=== PATIENT | male | born 1970 | race Caucasian/White ===

== ENCOUNTER 2022-10-24 13:16 | Emergency (ER) | payer OTHER, SELFPAY ==
--- NOTE | ~2022-10-24 | XR_ITS ---
EXAMINATION: XR knee RT min 4V DATE: 10/24/2022 14:14 INDICATION: Knee pain and popping while walking TECHNIQUE: Anteroposterior, 2 oblique and crosstable lateral views of the right knee were obtained COMPARISON: None. FINDINGS: Alignment is normal. No fracture. Joint spaces appear normal on nonweightbearing imaging. There are tiny marginal osteophytes in all 3 compartments consistent with at least minimal osteoarthritis. No j oint effusion. Soft tissues are unremarkable. IMPRESSION: 1. At least minimal osteoarthritis of the right knee with no joint effusion or acute osseous abnormal ity. Reviewed, dictated and finalized at location A. IMPRESSION: 1. At least minimal osteoarthritis of the right knee with no joint effusion or acute osseous abnormality.
--- NOTE | 2022-10-24 13:28 | ED.LOWEXIN ---
HPI - Extremity Injury (Lower) General Chief Complaint: Extremity Injury, Lower Stated Complaint: Right knee pain Time Seen by Provider: 10/24/22 13:59 Source: patient and RN notes reviewed Mode of arrival: ambulatory Limitations: no limitations History of Present Illness HPI Narrative: 52-year-old male presents with concern for right knee pain. He reports pain started 1 week ago without injury or trauma. He reports he feels like the knee is going to give out sometimes, reports a popping sensation when he gets out of the car. He denies taking any medications for his symptoms. He denies any redness or warmth. Denies open skin. MD complaint: other (knee pain) Related Data Allergies Allergy/AdvReac Type Severity Reaction Status Date / Time No Known Allergies Allergy Verified 10/24/22 14:05 Review of Systems Review of Systems: CONSTITUTIONAL: Denies malaise, chills, sweats, or fever. SKIN: Denies rash or itching, open skin, laceration, abrasion, redness, warmth MUSCULOSKELETAL: Reports right knee pain NEUROLOGIC: Denies numbness, weakness All systems reviewed & are unremarkable except as noted in HPI and below PMFSH Comments At time of signature, agree with nursing past medical, surgical, social and family history. There is no relevant family history pertinent to the presenting complaint Exam Narrative: GENERAL: Well-appearing, well-nourished, and in no acute distress. HEAD: Normocephalic, atraumatic. EYES: PERRLA, conjunctivae clear NECK: Supple. CHEST: Speaks in full sentences. No respiratory distress. HEART: Regular rate and rhythm. Normal and equal peripheral pulses. EXTREMITIES: Right knee has grossly normal strength and sensation, grossly normal range of motion. Moderate knee edema without erythema, warmth, ecchymosis. Normal sensation with sensitivity to light touch and pain. Posterior and anterior knee tenderness. No open wounds, no skin tenting, no devitalized tissue or atrophy, no trophic changes, no obvious deformity, alignment normal, nearby joints and structures intact. Distal pulses palpable and equal bilaterally, skin warm, dry, pink. Capillary refill less than 3 seconds. SKIN: Warm, dry, no rash. NEURO: Alert and oriented x3. PSYCH: Normal mood and affect Course Course Emergency Course: Patient is aware of diagnosis, understands and agrees to treatment plan. Anticipatory guidance given. Patient agrees to follow-up as directed and is aware of reasons to seek care at the emergency department. Portions of this record may have been created with voice recognition software Level of Care: Express Care Visit Vital Signs Vital signs: Reviewed. MDM - Extremity Injury (Lower) MDM Narrative Medical decision making narrative: Patients injury and pain is consistent with musculoskeletal etiology. No signs of neurological or vascular compromise on exam. Compartments and tissues are soft without signs of compartment syndrome. Pain is felt appropriate for further evaluation on an outpatient basis. Patient denies any significant medical history or contraindication to taking NSAIDs Imaging Data My impression: Images reviewed, interpreted by radiologist, agree, see report. Radiologist's impression: EXAMINATION: XR knee RT min 4V DATE: 10/24/2022 14:14 INDICATION: Knee pain and popping while walking TECHNIQUE: Anteroposterior, 2 oblique and crosstable lateral views of the right knee were obtained COMPARISON: None. FINDINGS: Alignment is normal.? No fracture. Joint spaces appear normal on nonweightbearing imaging. There are tiny marginal osteophytes in all 3 compartments consistent with at least minimal osteoarthritis. No joint effusion. Soft tissues are unremarkable. IMPRESSION: 1. At least minimal osteoarthritis of the right knee with no joint effusion or acute osseous abnormality. Critical Care Time Critical Care Time Critical Care Time: No Discharge Plan Discharge Clinical Impressio
[2022-10-24 13:33] VITALS: BP 155/82; PULSE 82; RESP 16; TEMP 37; O2SAT 98
== END 2022-10-24 14:57 | disposition home or self-care (01) ==
PROVIDERS: Emergency Provider Nurse Practitioner
DX: M25.561 Pain in right knee (principal); M25.461 Effusion, right knee
CPT/HCPCS: 73564; 99203; G0463

== ENCOUNTER 2022-12-01 11:11 | Inpatient (IN) | payer OTHER, SELFPAY ==
[2022-12-01] VITALS (26 sets, daily range): BP systolic 158–186; BP diastolic 85–98; PULSE 63–117; RESP 12–26; TEMP 36.5–36.6; O2SAT 97–100; BMI 18.8
--- NOTE | ~2022-12-01 | US_ITS ---
EXAMINATION: US abdomen complete DATE: 12/07/2022 15:12 INDICATION: Liver disease TECHNIQUE: Multiple grayscale and Doppler ultrasound images of the abdomen were obtained. COMPARISON: CT, 12/01/2022 FINDINGS: Bowel gas obscures visualization of the pancreas. The visualized portions of the pancreas a re unremarkable. The small hypoattenuating lesions of the liver described on the comparison CT are no t well demonstrated. No surface nodularity. Normal hepatopetal flow in the main portal vein. The gall bladder is normal with no abnormal wall thickening, pericholecystic fluid or stones. The normal commo n bile duct measures 5 mm. There was no sonographic [place] sign. The visualized portions of the aorta and inferior vena cava are normal. The spleen is normal in appearance and measures 8.1 cm. The right kidney measures 9.6 x 5.3 cm. The l eft kidney measures 10.0 x 6.3 cm. The kidneys demonstrate normal parenchymal echogenicity. There is no hydronephrosis. IMPRESSION: 1. Hypoattenuating lesions of the liver described on comparison CT not well demonstrated. Consider fu rther evaluation by MRI without and with contrast. Reviewed, dictated and finalized at location [] IMPRESSION: 1. Hypoattenuating lesions of the liver described on comparison CT not well dem onstrated. Consider further evaluation by MRI without and with contrast.
--- NOTE | ~2022-12-01 | MR_ITS ---
EXAMINATION: MR abdomen wo/w con INDICATION: Hepatic lesions TECHNIQUE: Coronal SSFSE ARC, WATER:coronal LAVA-FLEX, Coronal 2D FIESTA FatSat, Axial SSFSE BH ARC, Axial 3D DualEcho BH, Axial SSFSE-IR, Axial DWI b=500, Axial 2D FIESTA FatSat, pre and dynamic postco ntrast Axial LAVA ARC, postcontrast Coronal In and Opposed phase LAVA FLEX COMPARISON: CT, 12/01/2022 CONTRAST: Multihance, 12 cc. Of note, patient experienced and itching sensation in his oral cavity an d demonstrated hives on his back after the examination was completed. Patient was evaluated by Dr. Fr corcoran who maybe I am you aware of the contrast reaction and advised the administration of Benadryl i f symptoms do not improve. FINDINGS: There are innumerable T1 hypointense, T2 hyperintense, nonenhancing lesions scattered throu ghout all lobes of the liver. The largest measure up to 9 mm. No suspicious liver mass is identified. The spleen, pancreas, gallbladder, and adrenal glands are unremarkable cysts of the kidneys measure up to 2.5 cm on the left. There are no pathologically enlarged abdominal lymph nodes. No dilated loop s of bowel are evident. No abnormal enhancement is present after contrast administration.. IMPRESSION: 1. Innumerable lesions throughout all lobes of the liver with benign MR features, likely cysts or jameel iary hamartomas. 2. Contrast reaction. Reviewed, dictated and finalized at location L. IMPRESSION: 1. Innumerable lesions throughout all lobes of the liver with benign MR feature s, likely cysts or biliary hamartomas. 2. Contrast reaction.
--- NOTE | ~2022-12-01 | CT_ITS ---
EXAMINATION: CT abdomen pelvis w con DATE: 12/01/2022 12:49 INDICATION: Abdominal pain TECHNIQUE: Computed tomography (CT) of the abdomen and pelvis was performed with 100 cc Omnipaque 350 intravenous contrast. The dose-length product was 208.06 mGy-cm. Automated exposure control and iterative reconstruction technique were employed. COMPARISON: None. FINDINGS: Lung bases are unremarkable. Heart size normal. No significant pleural or pericardial effus ion. There are innumerable small low density lesions of the liver, most likely benign cysts, although too small to adequately characterize. Fatty infiltration of the liver. Spleen is atrophic. The pancr eas, adrenal glands are unremarkable. There are bilateral renal cysts. No hydronephrosis. Gallbladder is present. Nonobstructive bowel pattern. Normal appendix. There is thickening of the sigmoid colon. No small bowel dilation. No significant vascular abnormality. Small hiatal hernia. No lymphadenopath y. IMPRESSION: 1. Thickening of the sigmoid colon which may represent normal variant, although other considerations include colitis and malignancy. Recommend correlation with colonoscopy. 2: Hepatic steatosis. Innumerable hypodense lesions of the liver, most likely benign, although too s mall to characterize. Reviewed, dictated and finalized at location L. IMPRESSION: 1. Thickening of the sigmoid colon which may represent normal variant, although other considerations include colitis and malignancy. Recommend correlation wit h colonoscopy. 2: Hepatic steatosis. Innumerable hypodense lesions of the liver, most likely benign, although too small to characterize.
--- NOTE | 2022-12-01 12:11 | ED.ALCOHOL ---
HPI - Alcohol General Chief Complaint: Alcohol Stated Complaint: ETOH, bloody emesis Time Seen by Provider: 12/01/22 12:11 Source: patient and family Mode of arrival: ambulatory Limitations: no limitations History of Present Illness HPI narrative: 52 years old white male presented to the ED with dry heaves and the frequent vomiting over the last few days. Last alcohol intake was 10 AM this morning. Patient drinks a pint of fireball daily. Last time was seen by a physician years ago. Patient does not take medicine at home, he smokes cigarettes and uses marijuana he denies other drug abuse. Lately noticed blood in the vomitus with abdominal pain mainly on the right side. He denies any fever or chills or diarrhea or constipation. His reports that patient is not eating for the last few days and unable to keep anything down. Related Data Allergies Allergy/AdvReac Type Severity Reaction Status Date / Time No Known Allergies Allergy Verified 12/01/22 10:23 Review of Systems Review of Systems: All systems reviewed & are unremarkable except as noted in HPI and below PMFSH Family History Family History Mother Diabetes mellitus Social History Social History Smoking packs per day: 1 Smoking cigarettes per day: 20.0 Smoking status: Current every day smoker Tobacco type: cigarettes Alcohol intake: current Substance use: unknown Lack of Transportation: No Lack of Food: Never True Current Housing: I Have Housing Concerned About Future Housing: No Difficulty Paying Gas/Electric Bills: No Difficulty Paying for Meds: No Currently Unemployed: YES Education: High School Diploma/GED Difficulty w/ Childcare or Family Care: No Exam Narrative: General appearance: Well-developed, well-nourished Skin: Normal color Head: Normocephalic, nontraumatic Eyes: Clear conjunctiva ENT: Oropharynx normal, ears normal, nose normal Neck: Supple, nontender Chest and respiratory: Airway patent, no respiratory distress, no accessory muscle use Heart: Regular rate/rhythm Abdomen: Soft, diffuse tenderness, no guarding or rebound no organomegaly, quiet bowel sounds Vascular: Normal peripheral pulses, normal capillary refill. 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 Reevaluation(s) Reevaluation #1: Slightly better after IV fluid Date: 12/01/22 Time: 13:24 Consultations Consultation #1: Dr. Smith Date: 12/01/22 Time: 15:02 Vital Signs Vital signs: Vital Signs Pulse Rate 78 12/01/22 11:33 Respiratory Rate 17 12/01/22 11:33 Pulse Oximetry 98 12/01/22 11:33 Temperature 36.6 C 12/01/22 11:42 Pulse Rate 91 12/01/22 13:16 Respiratory Rate 18 12/01/22 13:16 Blood Pressure 164/90 H 12/01/22 13:16 Pulse Oximetry 97 12/01/22 13:16 Oxygen Delivery Room Air 12/01/22 11:42 MDM - Alcohol Lab Data 12/01/22 12:10 12/01/22 12:10 Labs: Lab Results 12/01/22 12/01/22 12/01/22 Range/Units 12:10 13:57 14:55 WBC 9.1 (4.5-10.0) K/mm3 RBC 5.14 (4.6-6.20) M/mm3 Hgb 19.2 H (14.0-18.0) g/dL Hct 52.9 H (42.0-52.0) % MCV 102.9 H (80-100) fl MCH 37.4 H (26-34) pg MCHC 36.3 H (32-36) g/dl RDW 14.6 H (11.5-14.5) % Plt Count 154 (150-375) k/mm3 MPV 9.8 (7.4-10.4) fl Immature Gran % (Auto) 0.4 (0-0.5) % Neut % (Auto) 68.2 (45.5-73.1) % Lymph
[2022-12-01 12:16] LABS: Basophils Absolute Auto 0.1 K/mm3 (0.0-0.1); Basophils Percent Auto 0.6 % (0.2-1.2); Eosinophils Percent Auto 0.3 % (0-4.4); Hematocrit 52.9 % (42.0-52.0); Hemoglobin 19.2 g/dL (14.0-18.0); Immature Granulocyte Absolute 0.04 K/mm3 (0.00-0.031); Immature Granulocyte Percent A 0.4 % (0-0.5); Lymphocytes Absolute Auto 1.77 K/mm3 (0.9-3.2); Lymphocytes Percent Auto 19.6 % (18.3-44.2); Mean Corpuscular HGB Conc 36.3 g/dl (32-36); Mean Corpuscular Hemoglobin 37.4 pg (26-34); Mean Corpuscular Volume 102.9 fl (80-100); Mean Platelet Volume 9.8 fl (7.4-10.4); Monocytes Percent Auto 10.9 % (2.6-8.5); Neutrophils Absolute Auto 6.2 K/mm3 (1.3-6.7); Neutrophils Percent Auto 68.2 % (45.5-73.1); Platelet Count Result 154 k/mm3 (150-375); Red Blood Count 5.14 M/mm3 (4.6-6.20); Red Cell Distribution Width 14.6 % (11.5-14.5); White Blood Count 9.1 K/mm3 (4.5-10.0)
[2022-12-01 12:29] LABS: Alanine Aminotransferase 65 U/L (6-50); Albumin Level 4.6 g/dL (3.5-5.1); Alkaline Phosphatase 155 U/L (38-126); Aspartate Amino Transferase 101 U/L (17-59); Bilirubin,Total 1.4 mg/dL (0.2-1.3); Blood Urea Nitrogen 13 mg/dL (9-20); Calcium 9.4 mg/dL (8.4-10.2); Carbon Dioxide > 40 mmol/L (22-30); Chloride 89 mmol/L (98-107); Estimated CRCL calculation 71 ml/min; Estimated Glomerular Filt Rate > 60; Glucose 130 mg/dL (65-110); Lipase 69 U/L (23-300); Potassium 2.8 mmol/L (3.4-5.0); Sodium 142 mmol/L (137-145)
[2022-12-01 12:47] LABS: Magnesium 1.9 mg/dL (1.6-2.3)
[2022-12-01 12:48] LABS: Prothrombin Time 13.7 Seconds (11.1-14.7)
--- NOTE | 2022-12-01 13:00 | PC.NURSE ---
Pt was taken down to CT for a CT with contrast. During the CT after giving the IV dye, pt states he felt like his throat was closing and very nauseous. Pt's SPO2 never dipped below the 90s. CT described the same dry heaves and spit up that has been ongoing. Pt also started having excessive shaking. Pt states that he had his last drink just prior to arrival. Pt states the throat tightening had improved upon arrival of ER staff to CT room. Pt was taken off NRB and transferred back to ED on room air.
[2022-12-01] MEDS: SODIUM CHLORIDE 0.9% IV 1,000 ML 999 ML IV CONT (13:06)
[2022-12-01] MEDS: PANTOPRAZOLE SODIUM IV 40 MG VIAL IV PUSH ×2 (13:08→20:44)
[2022-12-01] MEDS: POTASSIUM CHLORIDE INJ 40 MEQ in SODIUM CHLORIDE 0.9% IV 500 ML 130 MEQ IVPB (13:10)
--- NOTE | 2022-12-01 13:51 | WPDGICN ---
Assessment and Plan Assessment and plan (1) Hematemesis: Code(s): K92.0 - Hematemesis Status: Acute Assessment and Plan: he has had vomiting of dark and also bright red blood for the past 2 weeks. He states that his only pain is in his throat from vomiting. Possibilities include peptic ulcer disease due to use of NSAIDs, esophageal varices if he has portal hypertension, and more likely Luda-Cameron syndrome. He will be scheduled for EGD to be done tomorrow morning. (2) Nausea and vomiting: Code(s): R11.2 - Nausea with vomiting, unspecified Status: Acute Assessment and Plan: this began 2 weeks ago. I suspect that is due to his alcohol abuse. This has resulted in him vomiting blood. He states that he has been unable to eat anything for that period of time although he thinks his weight has been stable. (3) Alcohol abuse: Code(s): F10.10 - Alcohol abuse, uncomplicated Status: Acute Assessment and Plan: He admits to drinking a pt of fireball daily. We will need to watch for alcohol withdrawal syndrome. He had that he does not drink nearly as much as he used to (4) Transaminitis: Code(s): R74.01 - Elevation of levels of liver transaminase levels Status: Acute Assessment and Plan: bilirubin is slightly elevated at 1.4 AST and ALT 101 and 65 respectively. I suspect this is due to alcohol abuse but we will trend these Parameters (5) Dehydration: Code(s): E86.0 - Dehydration Status: Acute Assessment and Plan: with his hemoglobin over 19, he is obviously hemoconcentrated. Who be rehydrated with IV fluids per (6) Hypokalemia: Code(s): E87.6 - Hypokalemia Status: Acute Assessment and Plan: potassium is low at 2. 8 and will need to be replenished Plan nausea, vomiting and hematemesis in a person who abuses alcohol. Possibilities are alcoholic gastritis, esophageal varices, Luda-Cameron syndrome. Endoscopy will be performed. We will empirically begin octreotide and PPI. Need to watch for alcohol withdrawal syndrome. GI Consult Note Consult date/time: 12/01/22 13:51 HPI: Corey Johnson is a 52 year old male who presented to the emergency room today with a history of having had nausea and vomiting with hematemesis for the past 2 weeks. He states he has not been able to keep anything down. He is even having trouble keeping liquids down. He does drink and has continued to drink fireball about 1 pt a day. Somehow he has been able to keep that down but states he has been drinking a lot less. He denies any prior history of liver disease. He has never been hospitalized for alcohol-related problems such as alcohol withdrawal syndrome. He believes that his weight has been stable despite not eating. He has not seen a physician for many years. He does not take anti-inflammatory medications except for ibuprofen which he uses intermittently. He was told many years ago that he had an ulcer. He points to his lower abdomen however. In fact he states that his only pain is across the lower abdomen Review of Systems Review of Systems: All systems reviewed & are unremarkable except as noted in HPI and below PMFSH Family History Family History Mother Diabetes mellitus Social History Social History Smoking packs per day: 1 Smoking cigarettes per day: 20.0 Smoking status: Current every day smoker Tobacco type: cigarettes Alcohol intake: current Substance use: unknown Lack of Transportation: No Lack of Food: Never True Current Housing: I Have Housing Concerned About Future Housing: No Difficulty Paying Gas/Electric Bills: No Difficulty Paying for Meds: No Currently Unemployed: YES Education: High School Diploma/GED Difficulty w/ Childcare or Family Care: No
[2022-12-01 14:25] LABS: Appearance Urine Clear (Clear); Bacteria Urine None Seen /hpf; Bilirubin Urine 1+ (Negative); Blood Urine 2+ (Negative); Color Urine Dark Yellow (Yellow); Glucose Urine UA Negative (Negative); Ketones Urine Trace mg/dL (Negative); Leukocyte Esterase Ur Trace LEU/UL (Negative); Need Manual Microscopic Reviewed; Nitrate Urine Negative (Negative); Non Pathogenic Casts 0-2; Protein Urine 2+ mg/dL (Negative); RBC Urine 51-100 /hpf (0-2); Specific Grav Ur >= 1.099 (1.001-1.035); Squamous Epithelial Cell Urine None seen /hpf (Few)
[2022-12-01 14:26] LABS: Add Urine Microscopic? YES
[2022-12-01 14:57] LABS: Glucose Point of Care 134 mg/dl (65-105)
[2022-12-01] MEDS: SODIUM CHLORIDE 0.9% IV 1,000 ML 150 ML IV CONT (16:21)
[2022-12-01] MEDS: POTASSIUM CHLORIDE 20 MEQ ER TABLET 40 MEQ PO (17:41)
--- NOTE | 2022-12-01 18:00 | ADMGEN ---
This patient, Corey Johnson, was admitted to Intensive Care Unit-2. Patient/family oriented to hospital policies and general routines including ID bracelet, bed and alarms, visiting hours, pain management, procedures, bathroom and other care routines, personal items, smoking policy, room service/diet, and visiting hours. Information on how to activate the Rapid Response Team has been discussed. Patient/Family are encouraged to report perceived risks to care and to ask questions if they do not understand what they are told or what they should do.
--- NOTE | 2022-12-01 18:04 | PM.IMHP ---
H&P: HPI History of Present Illness Date/Time: 12/01/22 18:05 Chief Complaint: Vomiting. Narrative: This is a very pleasant 52-year-old male with history of alcohol abuse and epilepsy as a child (no longer on medication; he has not had a seizure for well over 40 years) who presented to the emergency department via private vehicle from home for evaluation of vomiting. Patient provides the following history. The last several weeks he has had intermittent episodes of abdominal discomfort, nausea, dry heaves, and more recently he has had several episodes of hematemesis. He has been cutting back on his alcohol intake as it seems to make ?the fire in my belly? worse. Unfortunately he has a longstanding history of alcohol abuse and he tends to have shakes upon waking in the morning and he shots of alcohol to prevent that from happening throughout the day. He also has noticed that his stools are a bit darker than usual. He has never had a colonoscopy. He does on occasion take ibuprofen or Excedrin but not frequently at all. He denies significant caffeine use. He has not had chest pain or shortness of breath. Blood pressures have been running in the 160s to 170 since arrival to the ED. labs were significant for WBC count of 9.1, hemoglobin 19.2, hematocrit 52.9, MCV 102.9, sodium 142, potassium 2.8, chloride 89, carbon dioxide greater than 40, magnesium 1.9, total bilirubin 1.4, AST 101, ALT 65, alkaline phosphatase 155, total protein 9.0. In the ED, he was given a banana bag and was started on IV Protonix and an octreotide drip. He has since been admitted to the IMU for close monitoring and GI consultation. At the time my evaluation he is mildly tremulous and hypertensive. He denies hallucinations, is currently alert and oriented x4, and he is not having any sweats. He has never had alcohol withdrawal seizure but does endorse having alcohol withdrawal symptoms when he has stopped drinking in the past. He has not had any further episodes of hematemesis since admission to the floor. Review of Systems Review of Systems: Twelve systems were reviewed and are negative except for as per HPI. [facility] Past Medical History Medical History (Updated 12/01/22 @ 20:24 by Zaida Eldridge PA-C) Alcohol abuse Tobacco abuse Surgical History Surgical History (Updated 12/01/22 @ 20:16 by Zaida Eldridge PA-C) No history of previous surgery Family History Family History Mother Diabetes mellitus Social History Social History (Updated 12/01/22 @ 20:18 by Zaida Eldridge PA-C) Social History: Surrogate medical decision maker: sally Burden. Code status: Full code. Smoking packs per day: 1.5 Smoking cigarettes per day: 30.0 Smoking status: Current every day smoker Tobacco type: cigarettes Alcohol intake: current Drinks per week: 63 Alcohol use details: Drinks a pint of fireball a day. Substance use: current Substance use type: marijuana Other substance usage details: smokes marijuana daily Lack of Transportation: No Lack of Food: Never True Current Housing: I Have Housing Concerned About Future Housing: No Difficulty Paying Gas/Electric Bills: No Difficulty Paying for Meds: No Currently Unemployed: YES Education: High School Diploma/GED Difficulty w/ Childcare or Family Care: No Additional living arrangements comments: Lives in [place] with sally. Additional occupation/education comments: Works in sales at [employer]. Spiritual care concerns: No Meds Home Medications and Allergies Home Medications Medication Instructions Recorded Confirmed Type No Home Medications 12/01/22 12/02/22 History Allergies Allergy/AdvReac Type Severity Reaction Status Date / Time No Known Allergies Allergy Verified 12/02/22 11:01 Vital Signs Vital Signs - 24 hr 12/01/22 11:42 12/01/22 13:09 12/01/22 11:33 Temperatu
[2022-12-01 18:28] LABS: Hematocrit 45.9 % (42.0-52.0); Hemoglobin 16.4 g/dL (14.0-18.0); Immature Platelet Fraction Pct 5.2 % (0.9-11.2); Immature Reticulocyte Fraction 6.1 % (3.0-15.9); Mean Corpuscular HGB Conc 35.7 g/dl (32-36); Mean Corpuscular Hemoglobin 37.5 pg (26-34); Mean Platelet Volume 10.1 fl (7.4-10.4); Platelet Count Result 144 k/mm3 (150-375); Red Blood Count 4.37 M/mm3 (4.6-6.20); Red Cell Distribution Width 14.8 % (11.5-14.5); Reticulocyte Hemoglobin Conten 40.9 pg (28.2-35.7); Reticulocyte Percent 1.11 % (0.7-4.3); Reticulocytes Absolute 0.05 M/mm3 (0.02-0.1); White Blood Count 8.8 K/mm3 (4.5-10.0)
[2022-12-01 18:35] LABS: Anion Gap 6 mmol/L (8-16); Blood Urea Nitrogen 10 mg/dL (9-20); Calcium 7.8 mg/dL (8.4-10.2); Carbon Dioxide 31 mmol/L (22-30); Chloride 100 mmol/L (98-107); Estimated CRCL calculation 79 ml/min; Estimated Glomerular Filt Rate > 60; Glucose 97 mg/dL (65-110); Potassium 3.4 mmol/L (3.4-5.0); Sodium 137 mmol/L (137-145)
[2022-12-01] MEDS: DEXTROSE 5%/0.9% SOD CHL 1,000 ML 125 ML IV CONT (19:01)
[2022-12-01] MEDS: LORazepam INJ (*CRX) 2 MG/ML VIAL 4 MG IV PUSH (19:01)
[2022-12-01] MEDS: OCTREOTIDE ACETATE 50 MCG/ML VIAL IV PUSH (19:30)
--- NOTE | 2022-12-01 19:48 | ECG_ITS ---
Measurements Intervals [place] Rate: 63 P: 81 HI: 150 QRS: 68 QRSD: 86 T: 86 QT: 433 QTc: 444 Interpretive Statements SINUS RHYTHM WITH SINUS ARRHYTHMIA NONSPECIFIC T-WAVE ABNORMALITY ABNORMAL ECG NO PREVIOUS ECG AVAILABLE FOR COMPARISON Electronically Signed On 12-02-2022 7:53:51 CDT by Raman Mora M.D.
[2022-12-01 20:06] LABS: Glucose Point of Care 100 mg/dl (65-105)
[2022-12-01 20:07] LABS: Iron 196 ug/dL (49-181)
[2022-12-01 20:17] LABS: Percent Iron Saturation 77 % (20-50)
[2022-12-01] MEDS: LORazepam INJ (*CRX) 2 MG/ML VIAL IV PUSH ×2 (20:32→23:52)
[2022-12-01 21:24] LABS: Hepatitis B Surface Antigen Negative (Negative)
[2022-12-01 21:30] LABS: HAV RESULT Negative (Negative); Hepatitis B Core IgM Result Negative (Negative)
[2022-12-01 21:42] LABS: Hepatitis C Virus Antibody Negative (Negative)
[2022-12-02] VITALS (22 sets, daily range): BP systolic 130–198; BP diastolic 57–108; PULSE 53–73; RESP 16–21; TEMP 36.2–37.3; O2SAT 93–100
[2022-12-02 01:00] LABS: Glucose Point of Care 173 mg/dl (65-105)
[2022-12-02] MEDS: DEXTROSE 5%/0.9% SOD CHL 1,000 ML 125 ML IV CONT ×2 (02:56→14:05)
[2022-12-02 04:34] LABS: Alanine Aminotransferase 46 U/L (6-50); Albumin Level 3.1 g/dL (3.5-5.1); Alkaline Phosphatase 99 U/L (38-126); Anion Gap 4 mmol/L (8-16); Aspartate Amino Transferase 75 U/L (17-59); Bilirubin,Total 1.3 mg/dL (0.2-1.3); Blood Urea Nitrogen 8 mg/dL (9-20); Calcium 7.6 mg/dL (8.4-10.2); Carbon Dioxide 34 mmol/L (22-30); Chloride 98 mmol/L (98-107); Estimated CRCL calculation 82 ml/min; Estimated Glomerular Filt Rate > 60; Glucose 174 mg/dL (65-110); Potassium 3.1 mmol/L (3.4-5.0); Sodium 136 mmol/L (137-145)
[2022-12-02 05:42] LABS: Glucose Point of Care 173 mg/dl (65-105)
[2022-12-02 06:15] LABS: Glucose Point of Care 73 mg/dl (65-105)
[2022-12-02 06:15] LABS: Glucose Point of Care 71 mg/dl (65-105)
[2022-12-02] MEDS: LORazepam INJ (*CRX) 2 MG/ML VIAL IV PUSH ×2 (07:58→22:50)
[2022-12-02] MEDS: PANTOPRAZOLE SODIUM IV 40 MG VIAL IV PUSH ×2 (09:00→21:24)
--- NOTE | 2022-12-02 11:00 | WPDANESEPPF ---
Anes - Initial Pre Proc Eval Procedure: Operation Date: 12/02/22 15:30 Proposed Procedures p Esophagogastroduodenoscopy - Esteban Smith MD Date/Time: 12/02/22 11:00 Surgeon: Elle Win MD Pre Op Diagnosis: alcoholic gastritis,vomiting,hypokalemia,alcoholis Patient Data Age: 52 Gender: M Height: 1.73 m Weight: 58.5 kg Last Vital Signs Temp 37.3 C 12/02/22 08:00 Pulse 56 L 12/02/22 08:00 Resp 16 12/02/22 08:00 BP 157/84 H 12/02/22 08:00 Pulse Ox 100 12/02/22 10:25 O2 Del Method Room Air 12/02/22 10:25 Allergies Allergy/AdvReac Type Severity Reaction Status Date / Time No Known Allergies Allergy Verified 12/02/22 11:01 Home Medications Medication Instructions Recorded Confirmed Type No Home Medications 12/01/22 12/02/22 History Laboratory Tests 12/01/22 12/01/22 12/01/22 12:10 13:57 14:55 WBC 9.1 K/mm3 (4.5-10.0) RBC 5.14 M/mm3 (4.6-6.20) Hgb 19.2 H g/dL (14.0-18.0) Hct 52.9 H % (42.0-52.0) MCV 102.9 H fl (80-100) MCH 37.4 H pg (26-34) MCHC 36.3 H g/dl (32-36) RDW 14.6 H % (11.5-14.5) Plt Count 154 k/mm3 (150-375) MPV 9.8 fl (7.4-10.4) Immature Gran % (Auto) 0.4 % (0-0.5) Neut % (Auto) 68.2 % (45.5-73.1) Lymph % (Auto) 19.6 % (18.3-44.2) Toole % (Auto) 10.9 H % (2.6-8.5) Eos % (Auto) 0.3 % (0-4.4) Baso % (Auto) 0.6 % (0.2-1.2) Lymph # (Auto) 1.77 K/mm3 (0.9-3.2) Toole # (Auto) 1.0 H K/mm3 (0.1-0.6) Eos # (Auto) 0.0 K/mm3 (0-0.3) Baso # (Auto) 0.1 K/mm3 (0.0-0.1) Abs Immat Gran (auto) 0.04 H K/mm3 (0.00-0.031) Absolute Neuts (auto) 6.2 K/mm3 (1.3-6.7) Absolute Nucleated RBC 0.0 K/mm3 (0.0-0.012) Nucleated RBC % 0.0 % (0.0-0.2) % Immature Plt Fraction Absolute Retic Percent Retic Immature Retic Fraction Retic Hgb Content PT 13.7 Seconds (11.1-14.7) INR 1.0 Sodium 142 mmol/L (137-145) Potassium 2.8 L* mmol/L (3.4-5.0) Chloride 89 L mmol/L (98-107) Carbon Dioxide > 40 H mmol/L (22-30) Anion Gap mmol/L (8-16) BUN 13 mg/dL (9-20) Creatinine 0.90 mg/dL (0.7-1.3) Estim Creat Clear Calc 71 ml/min Estimated GFR > 60 (59 - ) Glucose 130 H mg/dL (65-110) POC Capillary Glucose 134 H mg/dl (65-105) Calcium 9.4 mg/dL (8.4-10.2) Magnesium 1.9 mg/dL (1.6-2.3) Iron TIBC % Saturation Ferritin Total Bilirubin 1.4 H mg/dL (0.2-1.3) AST 101 H U/L (17-59) ALT 65 H U/L (6-50) Alkaline Phosphatase 155 H U/L (38-126) Total Protein 9.0 H g/dL (6.3-8.2) Albumin 4.6 g/dL (3.5-5.1) Lipase 69 U/L (23-300) Vitamin B12 Folate TSH (Reflex) Urine Color Dark yellow (Yellow) Urine Appearance Clear (Clear) Urine pH 7.0 (5.0-9.0) Ur Specific [place] >= 1.099 H (1.001-1.035) Urine Protein 2+ H mg/dL (Negative) Urine Glucose (UA) Negative mg/dL (Negative) Urine Ketones Trace H mg/dL (Negative) Ur Blood (Man) 2+ H (Negative) Urine Nitrate Negative (Negative) Urine Bilirubin 1+ H (Negative) Urine Urobilinogen 1.0 mg/dL (<2.0) Add Ur Microanalysis Reviewed Leukocyte Esterase Rfl Trace H BATSHEVA/UL (Negative) Urine RBC 51-100 /hpf (0-2) Urine WBC 6-10 H /hpf Ur Squamous Epith Cells None seen /hpf (Few) Urine Bacteria None s
[2022-12-02] MEDS: LACTATED RINGERS 1,000 ML 150 ML IV CONT (11:08)
--- NOTE | 2022-12-02 11:48 | SUR.OPER ---
Oral suction used during procedure
--- NOTE | 2022-12-02 12:20 | SUR.PHASEII ---
Pt bp 191/108 Dr. Goldstein notified. No new medication orders. Orders to send pt back to ICU. Primary RN updated.
[2022-12-02] MEDS: LORazepam INJ (*CRX) 2 MG/ML VIAL 4 MG IV PUSH ×2 (12:31→15:58)
[2022-12-02] MEDS: chlordiazePOXIDE (*CRX) 25 MG CAPSULE PO (12:35)
[2022-12-02 12:54] LABS: Glucose Point of Care 106 mg/dl (65-105)
--- NOTE | 2022-12-02 14:31 | WPDPN ---
Progress Note: A&P Assessment and Plan (1) Hematemesis: Code(s): K92.0 - Hematemesis Status: Acute (2) Alcohol withdrawal: Code(s): F10.939 - Alcohol use, unspecified with withdrawal, unspecified Status: Acute (3) Acute alcoholic gastritis: Qualifiers: Gastritis bleeding: with bleeding Qualified Code(s): K29.21 - Alcoholic gastritis with bleeding Code(s): K29.20 - Alcoholic gastritis without bleeding Status: Acute (4) Transaminitis: Code(s): R74.01 - Elevation of levels of liver transaminase levels Status: Acute (5) Dehydration: Code(s): E86.0 - Dehydration Status: Acute (6) Hypokalemia: Code(s): E87.6 - Hypokalemia Status: Acute (7) Alcohol abuse: Code(s): F10.10 - Alcohol abuse, uncomplicated Status: Acute (8) Tobacco abuse: Code(s): Z72.0 - Tobacco use Status: Acute Plan The patient presented to the emergency department for evaluation of abdominal discomfort, nausea, dry heaves, and hematemesis as per HPI. Labs, imaging, EKG, and all reports were personally reviewed. He is profoundly dehydrated and he has been started on IV fluid rehydration. He likely has alcohol-induced gastritis though given his longstanding history of alcoholism, cannot rule out the presence of varices. He has been started on IV Protonix 40 mg b.i.d., an octreotide drip, and ceftriaxone 2 g Q 24 hours. He will be NPO after midnight for upper endoscopy tomorrow per Dr. Smith. Trend hemoglobin and hematocrit. Electrolytes will be made replete and will be monitored closely. Initiate CIWA protocol. He declines the need for nicotine patch at this time. 12/02/2022 interval history: 52-year-old male with history of alcohol abuse and drinks daily alcohol presented with abdominal pain and hematemesis, patient was seen GI and patient had EGD it showed reflux esophagitis, esophageal stricture, hiatal gastritis and duodenitis, currently patient is somnolent, patient has high risk of DT will start the patient on CIWA protocol and Librium 50 mg every 6 hours for 1 day and reassess and plan according, will monitor. Subjective Date/time seen: 12/02/22 14:31 Interval history: Chief Complaint: Vomiting. HPI-Narrative: This is a very pleasant 52-year-old male with history of alcohol abuse and epilepsy as a child (no longer on medication; he has not had a seizure for well over 40 years) who presented to the emergency department via private vehicle from home for evaluation of vomiting. Patient provides the following history. The last several weeks he has had intermittent episodes of abdominal discomfort, nausea, dry heaves, and more recently he has had several episodes of hematemesis. He has been cutting back on his alcohol intake as it seems to make ?the fire in my belly? worse. Unfortunately he has a longstanding history of alcohol abuse and he tends to have shakes upon waking in the morning and he shots of alcohol to prevent that from happening throughout the day. He also has noticed that his stools are a bit darker than usual. He has never had a colonoscopy. He does on occasion take ibuprofen or Excedrin but not frequently at all. He denies significant caffeine use. He has not had chest pain or shortness of breath. Blood pressures have been running in the 160s to 170 since arrival to the ED. labs were significant for WBC count of 9.1, hemoglobin 19.2, hematocrit 52.9, MCV 102.9, sodium 142, potassium 2.8, chloride 89, carbon dioxide greater than 40, magnesium 1.9, total bilirubin 1.4, AST 101, ALT 65, alkaline phosphatase 155, total protein 9.0. In the ED, he was given a banana bag and was started on IV Protonix and an octreotide drip. He has since been admitted to the IMU for close monitoring and GI consultation. At the time my evaluation he is mildly tremulous and hypertensive. He denies hallucinations, is currently alert and oriented x4, and he is not having any swea
[2022-12-02] MEDS: chlordiazePOXIDE (*CRX) 25 MG CAPSULE 50 MG PO ×2 (17:03→23:05)
[2022-12-02 18:33] LABS: Glucose Point of Care 148 mg/dl (65-105)
--- NOTE | 2022-12-02 19:18 | PC.NURSE ---
This patient, Corey Johnson, was transferred to [facility] on 12/02/22 at 1900. Personal belongings sent with patient. Report given to Kina Dunbar RN. Appropriate documentation sent with patient.
[2022-12-02] MEDS: ONDANSETRON INJ 4 MG/2 ML VIAL IV PUSH (23:02)
[2022-12-02 23:24] LABS: Glucose Point of Care 162 mg/dl (65-105)
[2022-12-03] VITALS (20 sets, daily range): BP systolic 143–185; BP diastolic 67–88; PULSE 54–78; RESP 16–20; TEMP 36.2–36.9; O2SAT 97–99
[2022-12-03] MEDS: LORazepam INJ (*CRX) 2 MG/ML VIAL 4 MG IV PUSH ×4 (00:54→23:22)
[2022-12-03 05:02] LABS: Hematocrit 44.3 % (42.0-52.0); Hemoglobin 15.7 g/dL (14.0-18.0); Immature Platelet Fraction Pct 6.8 % (0.9-11.2); Mean Corpuscular HGB Conc 35.4 g/dl (32-36); Mean Corpuscular Volume 104.5 fl (80-100); Mean Platelet Volume 10.6 fl (7.4-10.4); Platelet Count Result 118 k/mm3 (150-375); Red Blood Count 4.24 M/mm3 (4.6-6.20); Red Cell Distribution Width 14.2 % (11.5-14.5); White Blood Count 6.8 K/mm3 (4.5-10.0)
[2022-12-03] MEDS: chlordiazePOXIDE (*CRX) 25 MG CAPSULE 50 MG PO ×2 (05:03→23:21)
[2022-12-03 05:18] LABS: Alanine Aminotransferase 47 U/L (6-50); Albumin Level 3.1 g/dL (3.5-5.1); Alkaline Phosphatase 99 U/L (38-126); Anion Gap 2 mmol/L (8-16); Aspartate Amino Transferase 76 U/L (17-59); Bilirubin,Total 1.1 mg/dL (0.2-1.3); Blood Urea Nitrogen 5 mg/dL (9-20); Calcium 7.7 mg/dL (8.4-10.2); Carbon Dioxide 34 mmol/L (22-30); Chloride 98 mmol/L (98-107); Estimated CRCL calculation 101 ml/min; Estimated Glomerular Filt Rate > 60; Glucose 154 mg/dL (65-110); Magnesium 1.6 mg/dL (1.6-2.3); Potassium 2.4 mmol/L (3.4-5.0); Sodium 134 mmol/L (137-145)
[2022-12-03] MEDS: MAGNESIUM SULF 2 GM/WATER 50ML 2 GM/50 ML BAG IVPB (06:08)
[2022-12-03] MEDS: POTASSIUM CHLORIDE 20 MEQ PACKET (FOR LIQUID) 40 MEQ PO ×3 (06:09→17:55)
[2022-12-03] MEDS: POTASSIUM CHLORIDE INJ 40 MEQ in SODIUM CHLORIDE 0.9% IV 500 ML 130 MEQ IVPB (06:19)
--- NOTE | 2022-12-03 08:18 | WPDGIPROGNO ---
Progress Note: A&P Assessment and Plan (1) Hematemesis: Code(s): K92.0 - Hematemesis Status: Acute Assessment and Plan: he has had vomiting of dark and also bright red blood for the past 2 weeks. He states that his only pain is in his throat from vomiting. Possibilities include peptic ulcer disease due to use of NSAIDs, esophageal varices if he has portal hypertension, and more likely Luda-Cameron syndrome. He will be scheduled for EGD to be done tomorrow morning. I discussed EGD with him. He had diffuse gastritis. H pylori was negative. Also reflux esophagitis. I told that he needs to stay off alcohol and he should take PPI for at least 4-6 weeks. hemoglobin remains normal. (2) Nausea and vomiting: Code(s): R11.2 - Nausea with vomiting, unspecified Status: Acute Assessment and Plan: this began 2 weeks ago. I suspect that is due to his alcohol abuse. This has resulted in him vomiting blood. He states that he has been unable to eat anything for that period of time although he thinks his weight has been stable. This morning he states he is not nauseated. He is trying some clear liquids. I will advance his diet (3) Alcohol abuse: Code(s): F10.10 - Alcohol abuse, uncomplicated Status: Acute Assessment and Plan: He admits to drinking a pt of fireball daily. We will need to watch for alcohol withdrawal syndrome. He had that he does not drink nearly as much as he used to (4) Transaminitis: Code(s): R74.01 - Elevation of levels of liver transaminase levels Status: Acute Assessment and Plan: bilirubin is slightly elevated at 1.4 AST and ALT 101 and 65 respectively. I suspect this is due to alcohol abuse but we will trend these Parameters (5) Dehydration: Code(s): E86.0 - Dehydration Status: Acute Assessment and Plan: with his hemoglobin over 19, he is obviously hemoconcentrated. Who be rehydrated with IV fluids. (6) Hypokalemia: Code(s): E87.6 - Hypokalemia Status: Acute Assessment and Plan: potassium is low at 2. 8 and will need to be replenished Plan nausea, vomiting and hematemesis in a person who abuses alcohol. Possibilities are alcoholic gastritis, esophageal varices, Luda-Cameron syndrome. Endoscopy will be performed. We will empirically begin octreotide and PPI. Need to watch for alcohol withdrawal syndrome. Subjective Date/time seen: 12/03/22 08:18 Exam Const: General: cooperative, comfortable, no acute distress, awake and uncomfortable Orientation/consciousness: patient oriented x3 HENMT: Head: normal to inspection Ears: hearing grossly normal bilaterally Mouth: Yes Normal oral and palatal mucosa present Eyes: General: appearance normal, both eyes and all related structures Conjunctivae: conjunctivae normal Sclera: sclerae normal Neck: Neck: normal visual inspection Chest: Chest palpation & inspection: normal inspection of the chest Resp: Effort & Inspection: normal respiratory effort Auscultation: clear to auscultation bilaterally Cardio: Rate: regular rate Rhythm: regular rhythm GI: Inspection: normal to inspection GI Palp: No abdominal tenderness, Yes Soft to palpation, Yes Hepatomegaly present ( borderline) and No Hernia present Auscultation: normal bowel sounds Skin: General skin exam: normal color and no jaundice Neuro: General: patient oriented x3 Speech: normal speech Motor exam (neuro): No Asterixis during motor activity present and Motor abnormalites present ( tremulous arms and hands) Objective Data Vital Signs Vital Signs: Vital Signs - 24 hr 12/02/22 10:25 12/02/22 11:02 12/02/22 11:47 Temperature 36.2 C L Pulse Rate 63 59 L Pulse Rate [Bilateral Pedal (Dorsalis Pedis) Palpation] Pulse Rate [Monitor] Respiratory Rate 20 20 Blood Pressure 149/67 H 130/84 Pulse Oximetry 100 98 99 Oxygen Delivery Room Air Room Air
[2022-12-03] MEDS: PANTOPRAZOLE SODIUM IV 40 MG VIAL IV PUSH ×2 (08:35→20:09)
[2022-12-03] MEDS: LORazepam INJ (*CRX) 2 MG/ML VIAL IV PUSH ×2 (08:36→18:20)
[2022-12-03] MEDS: DEXTROSE 5%/0.9% SOD CHL 1,000 ML 125 ML IV CONT (08:36)
[2022-12-03 11:55] LABS: Glucose Point of Care 147 mg/dl (65-105)
--- NOTE | 2022-12-03 12:08 | WPDPN ---
Progress Note: A&P Assessment and Plan (1) Hematemesis: Code(s): K92.0 - Hematemesis Status: Acute (2) Alcohol withdrawal: Code(s): F10.939 - Alcohol use, unspecified with withdrawal, unspecified Status: Acute (3) Acute alcoholic gastritis: Qualifiers: Gastritis bleeding: with bleeding Qualified Code(s): K29.21 - Alcoholic gastritis with bleeding Code(s): K29.20 - Alcoholic gastritis without bleeding Status: Acute (4) Transaminitis: Code(s): R74.01 - Elevation of levels of liver transaminase levels Status: Acute (5) Dehydration: Code(s): E86.0 - Dehydration Status: Acute (6) Hypokalemia: Code(s): E87.6 - Hypokalemia Status: Acute (7) Alcohol abuse: Code(s): F10.10 - Alcohol abuse, uncomplicated Status: Acute (8) Tobacco abuse: Code(s): Z72.0 - Tobacco use Status: Acute Plan The patient presented to the emergency department for evaluation of abdominal discomfort, nausea, dry heaves, and hematemesis as per HPI. Labs, imaging, EKG, and all reports were personally reviewed. He is profoundly dehydrated and he has been started on IV fluid rehydration. He likely has alcohol-induced gastritis though given his longstanding history of alcoholism, cannot rule out the presence of varices. He has been started on IV Protonix 40 mg b.i.d., an octreotide drip, and ceftriaxone 2 g Q 24 hours. He will be NPO after midnight for upper endoscopy tomorrow per Dr. Smith. Trend hemoglobin and hematocrit. Electrolytes will be made replete and will be monitored closely. Initiate CIWA protocol. He declines the need for nicotine patch at this time. 12/03/2022 interval history: 52-year-old male with history of alcohol abuse and drinks daily alcohol presented with abdominal pain and hematemesis, on 12/02 patient was seen GI and patient had EGD, it showed reflux esophagitis, esophageal stricture, hiatal gastritis and duodenitis, currently patient is somnolent, patient has high risk of DT started the patient on CIWA protocol and Librium 50 mg every 6 hours for 1 day today will switch his to librium 25mg PRN and reassess and plan according, will monitor. Subjective Date/time seen: 12/03/22 12:08 Interval history: Chief Complaint: Vomiting. HPI-Narrative: This is a very pleasant 52-year-old male with history of alcohol abuse and epilepsy as a child (no longer on medication; he has not had a seizure for well over 40 years) who presented to the emergency department via private vehicle from home for evaluation of vomiting. Patient provides the following history. The last several weeks he has had intermittent episodes of abdominal discomfort, nausea, dry heaves, and more recently he has had several episodes of hematemesis. He has been cutting back on his alcohol intake as it seems to make ?the fire in my belly? worse. Unfortunately he has a longstanding history of alcohol abuse and he tends to have shakes upon waking in the morning and he shots of alcohol to prevent that from happening throughout the day. He also has noticed that his stools are a bit darker than usual. He has never had a colonoscopy. He does on occasion take ibuprofen or Excedrin but not frequently at all. He denies significant caffeine use. He has not had chest pain or shortness of breath. Blood pressures have been running in the 160s to 170 since arrival to the ED. labs were significant for WBC count of 9.1, hemoglobin 19.2, hematocrit 52.9, MCV 102.9, sodium 142, potassium 2.8, chloride 89, carbon dioxide greater than 40, magnesium 1.9, total bilirubin 1.4, AST 101, ALT 65, alkaline phosphatase 155, total protein 9.0. In the ED, he was given a banana bag and was started on IV Protonix and an octreotide drip. He has since been admitted to the IMU for close monitoring and GI consultation. At the time my evaluation he is mildly tremulous and hypertensive. He denies hallucinations, is currentl
[2022-12-03 13:35] LABS: Potassium 3.4 mmol/L (3.4-5.0)
[2022-12-03] MEDS: LORazepam INJ (*CRX) 2 MG/ML VIAL 1 MG IV PUSH (16:19)
[2022-12-03] MEDS: chlordiazePOXIDE (*CRX) 25 MG CAPSULE PO (20:18)
[2022-12-04] VITALS (17 sets, daily range): BP systolic 111–185; BP diastolic 56–88; PULSE 59–80; RESP 16–24; TEMP 36.1–37.1; O2SAT 97–100
--- NOTE | 2022-12-04 00:02 | PC.NURSE ---
12/03/22 2315- Pt repetitively attempting to get out of bed despite education regarding bedrest, safety, and seizure precautions. Pt aggressive and belligerent with staff when staff lifts patient back to top of bed. Pt assisted to attempt to call his significant other, Crys with no answer. Pt given medications as ordered for a CWAL of 16. Will continue to monitor patient closely.
--- NOTE | 2022-12-04 01:22 | PC.NURSE ---
12/04/22 0110-Pt A&O x4 and demanding to leave AMA at this time. Pt re-educated on the importance of his safety and careplan, finishing treatment for UTI and alcohol withdrawal management. Pt states that he doesn't care about finishing treatment and continues to demand to leave AMA. Pt calling significant other for a ride home. Will continue to monitor patient closely.
[2022-12-04] MEDS: HALOPERIDOL LACTATE 5 MG/ML VIAL IM (01:44)
[2022-12-04] MEDS: LORazepam INJ (*CRX) 2 MG/ML VIAL 4 MG IV PUSH ×5 (02:21→19:41)
[2022-12-04 05:13] LABS: Hematocrit 45.6 % (42.0-52.0); Hemoglobin 16.1 g/dL (14.0-18.0); Mean Corpuscular HGB Conc 35.3 g/dl (32-36); Mean Corpuscular Hemoglobin 37.2 pg (26-34); Mean Corpuscular Volume 105.3 fl (80-100); Mean Platelet Volume 10.2 fl (7.4-10.4); Platelet Count Result 112 k/mm3 (150-375); Red Blood Count 4.33 M/mm3 (4.6-6.20); Red Cell Distribution Width 14.1 % (11.5-14.5); White Blood Count 7.1 K/mm3 (4.5-10.0)
[2022-12-04 05:28] LABS: Alanine Aminotransferase 62 U/L (6-50); Albumin Level 3.2 g/dL (3.5-5.1); Alkaline Phosphatase 101 U/L (38-126); Anion Gap 2 mmol/L (8-16); Aspartate Amino Transferase 100 U/L (17-59); Bilirubin,Total 1.1 mg/dL (0.2-1.3); Blood Urea Nitrogen 5 mg/dL (9-20); Calcium 8.1 mg/dL (8.4-10.2); Carbon Dioxide 29 mmol/L (22-30); Chloride 103 mmol/L (98-107); Estimated CRCL calculation 79 ml/min; Estimated Glomerular Filt Rate > 60; Glucose 91 mg/dL (65-110); Sodium 134 mmol/L (137-145)
[2022-12-04] MEDS: chlordiazePOXIDE (*CRX) 25 MG CAPSULE 50 MG PO ×4 (06:08→23:40)
[2022-12-04] MEDS: LORazepam INJ (*CRX) 2 MG/ML VIAL IV PUSH ×3 (06:11→23:41)
[2022-12-04] MEDS: POTASSIUM CHLORIDE 20 MEQ PACKET (FOR LIQUID) 40 MEQ PO ×2 (11:16)
[2022-12-04] MEDS: PANTOPRAZOLE SODIUM IV 40 MG VIAL IV PUSH ×2 (11:16→19:43)
--- NOTE | 2022-12-04 11:31 | WPDPN ---
Progress Note: A&P Assessment and Plan (1) Hematemesis: Code(s): K92.0 - Hematemesis Status: Acute (2) Alcohol withdrawal: Code(s): F10.939 - Alcohol use, unspecified with withdrawal, unspecified Status: Acute (3) Acute alcoholic gastritis: Qualifiers: Gastritis bleeding: with bleeding Qualified Code(s): K29.21 - Alcoholic gastritis with bleeding Code(s): K29.20 - Alcoholic gastritis without bleeding Status: Acute (4) Transaminitis: Code(s): R74.01 - Elevation of levels of liver transaminase levels Status: Acute (5) Dehydration: Code(s): E86.0 - Dehydration Status: Acute (6) Hypokalemia: Code(s): E87.6 - Hypokalemia Status: Acute (7) Alcohol abuse: Code(s): F10.10 - Alcohol abuse, uncomplicated Status: Acute (8) Tobacco abuse: Code(s): Z72.0 - Tobacco use Status: Acute Plan The patient presented to the emergency department for evaluation of abdominal discomfort, nausea, dry heaves, and hematemesis as per HPI. Labs, imaging, EKG, and all reports were personally reviewed. He is profoundly dehydrated and he has been started on IV fluid rehydration. He likely has alcohol-induced gastritis though given his longstanding history of alcoholism, cannot rule out the presence of varices. He has been started on IV Protonix 40 mg b.i.d., an octreotide drip, and ceftriaxone 2 g Q 24 hours. He will be NPO after midnight for upper endoscopy tomorrow per Dr. Smith. Trend hemoglobin and hematocrit. Electrolytes will be made replete and will be monitored closely. Initiate CIWA protocol. He declines the need for nicotine patch at this time. 12/04/2022 interval history: 52-year-old male with history of alcohol abuse and drinks daily alcohol presented with abdominal pain and hematemesis, on 12/02 patient was seen GI and patient had EGD, it showed reflux esophagitis, esophageal stricture, hiatal gastritis and duodenitis, currently patient is awake and insiting to be discharge however patient has high risk of DT and patient was agitated last night was given Ativan 2mg x4, the patient is on CIWA protocol and Librium 50 mg every 6 hours is continued, and reassess and plan according, will monitor. will monitor electrolytes and supplemnet, Subjective Date/time seen: 12/04/22 11:31 Interval history: Chief Complaint: Vomiting. HPI-Narrative: This is a very pleasant 52-year-old male with history of alcohol abuse and epilepsy as a child (no longer on medication; he has not had a seizure for well over 40 years) who presented to the emergency department via private vehicle from home for evaluation of vomiting. Patient provides the following history. The last several weeks he has had intermittent episodes of abdominal discomfort, nausea, dry heaves, and more recently he has had several episodes of hematemesis. He has been cutting back on his alcohol intake as it seems to make ?the fire in my belly? worse. Unfortunately he has a longstanding history of alcohol abuse and he tends to have shakes upon waking in the morning and he shots of alcohol to prevent that from happening throughout the day. He also has noticed that his stools are a bit darker than usual. He has never had a colonoscopy. He does on occasion take ibuprofen or Excedrin but not frequently at all. He denies significant caffeine use. He has not had chest pain or shortness of breath. Blood pressures have been running in the 160s to 170 since arrival to the ED. labs were significant for WBC count of 9.1, hemoglobin 19.2, hematocrit 52.9, MCV 102.9, sodium 142, potassium 2.8, chloride 89, carbon dioxide greater than 40, magnesium 1.9, total bilirubin 1.4, AST 101, ALT 65, alkaline phosphatase 155, total protein 9.0. In the ED, he was given a banana bag and was started on IV Protonix and an octreotide drip. He has since been admitted to the IMU for close monitoring and GI consultation. At the time
[2022-12-05] VITALS (17 sets, daily range): BP systolic 140–195; BP diastolic 75–84; PULSE 53–80; RESP 16–20; TEMP 35.7–36.4; O2SAT 99–100
[2022-12-05] MEDS: LORazepam INJ (*CRX) 2 MG/ML VIAL IV PUSH ×5 (01:44→15:55)
[2022-12-05 04:41] LABS: Hematocrit 46.8 % (42.0-52.0); Hemoglobin 16.4 g/dL (14.0-18.0); Immature Platelet Fraction Pct 7.3 % (0.9-11.2); Mean Corpuscular Hemoglobin 37.1 pg (26-34); Mean Corpuscular Volume 105.9 fl (80-100); Mean Platelet Volume 10.4 fl (7.4-10.4); Platelet Count Result 110 k/mm3 (150-375); Red Blood Count 4.42 M/mm3 (4.6-6.20); Red Cell Distribution Width 14.3 % (11.5-14.5); White Blood Count 7.4 K/mm3 (4.5-10.0)
[2022-12-05 04:52] LABS: Alanine Aminotransferase 54 U/L (6-50); Albumin Level 3.2 g/dL (3.5-5.1); Alkaline Phosphatase 101 U/L (38-126); Anion Gap 5 mmol/L (8-16); Aspartate Amino Transferase 71 U/L (17-59); Bilirubin,Total 0.8 mg/dL (0.2-1.3); Blood Urea Nitrogen 13 mg/dL (9-20); Calcium 8.4 mg/dL (8.4-10.2); Carbon Dioxide 28 mmol/L (22-30); Chloride 103 mmol/L (98-107); Estimated CRCL calculation 71 ml/min; Estimated Glomerular Filt Rate > 60; Glucose 106 mg/dL (65-110); Potassium 3.4 mmol/L (3.4-5.0); Sodium 136 mmol/L (137-145)
[2022-12-05] MEDS: chlordiazePOXIDE (*CRX) 25 MG CAPSULE 50 MG PO (06:05)
[2022-12-05] MEDS: POTASSIUM CHLORIDE 20 MEQ PACKET (FOR LIQUID) 40 MEQ PO (08:38)
[2022-12-05] MEDS: PANTOPRAZOLE SODIUM IV 40 MG VIAL IV PUSH ×2 (08:38→21:34)
[2022-12-05] MEDS: POTASSIUM CHLORIDE 20 MEQ ER TABLET 40 MEQ PO (10:15)
[2022-12-05] MEDS: chlordiazePOXIDE (*CRX) 25 MG CAPSULE PO ×3 (12:39→23:58)
--- NOTE | 2022-12-05 12:43 | WPDGIPROGNO ---
Progress Note: A&P Assessment and Plan (1) Alcohol withdrawal: Code(s): F10.939 - Alcohol use, unspecified with withdrawal, unspecified Status: Acute Assessment and Plan: ciwa protocol, thiamine high risk (2) Acute alcoholic gastritis: Qualifiers: Gastritis bleeding: with bleeding Qualified Code(s): K29.21 - Alcoholic gastritis with bleeding Code(s): K29.20 - Alcoholic gastritis without bleeding Status: Acute Assessment and Plan: on ppi no more report of bleeding (3) Transaminitis: Code(s): R74.01 - Elevation of levels of liver transaminase levels Status: Acute Assessment and Plan: stable (4) Hematemesis: Code(s): K92.0 - Hematemesis Status: Acute Assessment and Plan: resolved Subjective Date/time seen: 12/05/22 12:43 Interval history: he was agitated and received ativan, still on librium. Still confused and trying to get off his bed. Review of Systems Review of Systems: All systems reviewed & are unremarkable except as noted in HPI and below Exam Const: General: comfortable Other: agitated HENMT: Face/Nose/Sinus: Normal nares present Eyes: General: appearance normal, both eyes and all related structures Neck: Neck: supple Resp: Effort & Inspection: normal respiratory effort Cardio: Rate: regular rate GI: GI Palp: Yes Soft to palpation and No Guarding due to palpation present (GI) Auscultation: normal bowel sounds Skin: General skin exam: normal color Neuro: Speech: normal speech Extrem: General: normal to inspection Psych: Affect: Anxious affect present Other: agitated, confused Objective Data Vital Signs Vital Signs: Vital Signs - 24 hr 12/04/22 14:00 12/04/22 16:00 12/04/22 16:00 Temperature Pulse Rate 60 60 Pulse Rate [Bilateral Pedal (Dorsalis Pedis) Palpation] 73 Pulse Rate [Monitor] 72 Respiratory Rate 20 Blood Pressure Pulse Oximetry 99 Oxygen Delivery Room Air 12/04/22 16:00 12/04/22 16:00 12/04/22 18:00 Temperature 98.1 F Pulse Rate 65 70 68 Pulse Rate [Bilateral Pedal (Dorsalis Pedis) Palpation] Pulse Rate [Monitor] Respiratory Rate 24 H Blood Pressure 111/59 L Pulse Oximetry 98 Oxygen Delivery 12/04/22 19:55 12/04/22 20:00 12/04/22 20:00 Temperature 97.1 F L Pulse Rate 78 63 Pulse Rate [Bilateral Pedal (Dorsalis Pedis) Palpation] Pulse Rate [Monitor] Respiratory Rate 22 H Blood Pressure 116/75 Pulse Oximetry 100 Oxygen Delivery Room Air 12/04/22 22:00 12/04/22 23:41 12/05/22 00:00 Temperature 97.0 F L Pulse Rate 76 64 Pulse Rate [Bilateral Pedal (Dorsalis Pedis) Palpation] Pulse Rate [Monitor] Respiratory Rate 16 Blood Pressure 136/75 Pulse Oximetry 99 Oxygen Delivery Room Air 12/05/22 00:00 12/05/22 02:00 12/05/22 04:00 Temperature Pulse Rate 64 60 Pulse Rate [Bilateral Pedal (Dorsalis Pedis) Palpation] Pulse Rate [Monitor] Respiratory Rate Blood Pressure Pulse Oximetry Oxygen Delivery Room Air 12/05/22 04:00 12/05/22 04:00 12/05/22 06:00 Temperature 97.5 F L Pulse Rate 69 72 68 Pulse Rate [Bilateral Pedal (Dorsalis Pedis) Palpation] Pulse Rate [Monitor] Respiratory Rate 20 Blood Pressure 177/77 H Pulse Oximetry 100 Oxygen Delivery 12/05/22 08:00 12/05/22 08:00 12/05/22 08:00 Temperature 96.2 F L Pulse Rate 53 L 66 Pulse Rate [Bilateral Pedal (Dorsalis Pedis) Palpation] Pulse Rate [Monitor] Respiratory Rate 16 Blood Pressure 149/76 H Pulse Oximetry 100 Oxygen Delivery Room Air 12/05/22 10:00 Temperature Pulse Rate 55 L Pulse Rate [Bilateral Pedal (Dorsalis Pedis) Palpation] Pulse Rate [Monitor] Respiratory Rate Blood Pressure Pulse Oximetry Oxygen Delivery Intake/Output Intake/Output: Intake & Output 12/02/22 12/03/22 12/04/22 12/05/22 23:59 23:59 23:59 23:5
--- NOTE | 2022-12-05 14:06 | WPDPN ---
Progress Note: A&P Assessment and Plan (1) Hematemesis: Code(s): K92.0 - Hematemesis Status: Acute (2) Alcohol withdrawal: Code(s): F10.939 - Alcohol use, unspecified with withdrawal, unspecified Status: Acute (3) Acute alcoholic gastritis: Qualifiers: Gastritis bleeding: with bleeding Qualified Code(s): K29.21 - Alcoholic gastritis with bleeding Code(s): K29.20 - Alcoholic gastritis without bleeding Status: Acute (4) Transaminitis: Code(s): R74.01 - Elevation of levels of liver transaminase levels Status: Acute (5) Dehydration: Code(s): E86.0 - Dehydration Status: Acute (6) Hypokalemia: Code(s): E87.6 - Hypokalemia Status: Acute (7) Alcohol abuse: Code(s): F10.10 - Alcohol abuse, uncomplicated Status: Acute (8) Tobacco abuse: Code(s): Z72.0 - Tobacco use Status: Acute Plan The patient presented to the emergency department for evaluation of abdominal discomfort, nausea, dry heaves, and hematemesis as per HPI. Labs, imaging, EKG, and all reports were personally reviewed. He is profoundly dehydrated and he has been started on IV fluid rehydration. He likely has alcohol-induced gastritis though given his longstanding history of alcoholism, cannot rule out the presence of varices. He has been started on IV Protonix 40 mg b.i.d., an octreotide drip, and ceftriaxone 2 g Q 24 hours. He will be NPO after midnight for upper endoscopy tomorrow per Dr. Smith. Trend hemoglobin and hematocrit. Electrolytes will be made replete and will be monitored closely. Initiate CIWA protocol. He declines the need for nicotine patch at this time. 12/05/2022 interval history: 52-year-old male with history of alcohol abuse and drinks daily alcohol presented with abdominal pain and hematemesis, on 12/02 patient was seen GI and patient had EGD, it showed reflux esophagitis, esophageal stricture, hiatal gastritis and duodenitis, currently patient is awake and insiting to be discharge however patient has high risk of DT and on 02/02 patient was agitated last night was given Ativan 2mg x4, the patient is on CIWA protocol and Librium 50 mg every 6 hours is continued, today patient is little calm will taper librium to 25mg q6 PRN and reassess and plan according, will monitor. will monitor electrolytes and supplement, Subjective Date/time seen: 12/05/22 14:06 Interval history: 12/05/2022 interval history: 52-year-old male with history of alcohol abuse and drinks daily alcohol presented with abdominal pain and hematemesis, on 12/02 patient was seen GI and patient had EGD, it showed reflux esophagitis, esophageal stricture, hiatal gastritis and duodenitis, currently patient is awake and insiting to be discharge however patient has high risk of DT and on 02/02 patient was agitated last night was given Ativan 2mg x4, the patient is on CIWA protocol and Librium 50 mg every 6 hours is continued, today patient is little calm will taper librium to 25mg q6 PRN and reassess and plan according, will monitor. will monitor electrolytes and supplement, Review of Systems Review of Systems: Twelve systems were reviewed and are negative except for as per HPI. Objective Data Vital Signs Vital Signs: Vital Signs - 24 hr 12/04/22 16:00 12/04/22 16:00 12/04/22 16:00 Temperature Pulse Rate 60 65 Pulse Rate [Bilateral Pedal (Dorsalis Pedis) Palpation] 73 Pulse Rate [Monitor] 72 Respiratory Rate 20 Blood Pressure Pulse Oximetry 99 Oxygen Delivery Room Air 12/04/22 16:00 12/04/22 18:00 12/04/22 19:55 Temperature 98.1 F 97.1 F L Pulse Rate 70 68 78 Pulse Rate [Bilateral Pedal (Dorsalis Pedis) Palpation] Pulse Rate [Monitor] Respiratory Rate 24 H 22 H Blood Pressure 111/59 L 116/75 Pulse Oximetry 98 100 Oxygen Delivery 12/04/22 20:00 12/04/22 20:00 12/04/22 22:00 Temperature Pulse Rate 63 76 Pulse
[2022-12-05 16:30] LABS: Methyl Alcohol Level None Detected (None Detected)
[2022-12-05] MEDS: NICOTINE (*PBKC) 4 MG GUM PO (22:29)
[2022-12-06] VITALS (17 sets, daily range): BP systolic 118–157; BP diastolic 68–84; PULSE 57–92; RESP 16; TEMP 36.2–36.6; O2SAT 94–100
[2022-12-06 04:58] LABS: Hematocrit 45.2 % (42.0-52.0); Immature Platelet Fraction Pct 6.4 % (0.9-11.2); Mean Corpuscular HGB Conc 35.4 g/dl (32-36); Mean Corpuscular Hemoglobin 37.3 pg (26-34); Mean Corpuscular Volume 105.4 fl (80-100); Mean Platelet Volume 10.5 fl (7.4-10.4); Platelet Count Result 134 k/mm3 (150-375); Red Blood Count 4.29 M/mm3 (4.6-6.20); Red Cell Distribution Width 14.2 % (11.5-14.5); White Blood Count 6.9 K/mm3 (4.5-10.0)
[2022-12-06 05:13] LABS: Alanine Aminotransferase 49 U/L (6-50); Albumin Level 3.4 g/dL (3.5-5.1); Alkaline Phosphatase 87 U/L (38-126); Anion Gap 6 mmol/L (8-16); Aspartate Amino Transferase 54 U/L (17-59); Bilirubin,Total 0.9 mg/dL (0.2-1.3); Blood Urea Nitrogen 9 mg/dL (9-20); Calcium 8.7 mg/dL (8.4-10.2); Carbon Dioxide 27 mmol/L (22-30); Chloride 101 mmol/L (98-107); Estimated CRCL calculation 89 ml/min; Estimated Glomerular Filt Rate > 60; Glucose 86 mg/dL (65-110); Magnesium 1.9 mg/dL (1.6-2.3); Potassium 3.7 mmol/L (3.4-5.0); Sodium 134 mmol/L (137-145)
[2022-12-06] MEDS: chlordiazePOXIDE (*CRX) 25 MG CAPSULE PO ×3 (06:39→17:50)
--- NOTE | 2022-12-06 07:28 | WPDGIPROGNO ---
Progress Note: A&P Assessment and Plan (1) Hematemesis: Code(s): K92.0 - Hematemesis Status: Acute Assessment and Plan: he has had vomiting of dark and also bright red blood for the past 2 weeks. He states that his only pain is in his throat from vomiting. Possibilities include peptic ulcer disease due to use of NSAIDs, esophageal varices if he has portal hypertension, and more likely Luda-Cameron syndrome. He will be scheduled for EGD to be done tomorrow morning. I discussed EGD with him. He had diffuse gastritis. H pylori was negative. Also reflux esophagitis. I told that he needs to stay off alcohol and he should take PPI for at least 4-6 weeks. hemoglobin remains normal. 12/06 no further vomiting. (2) Nausea and vomiting: Code(s): R11.2 - Nausea with vomiting, unspecified Status: Acute Assessment and Plan: this began 2 weeks ago. I suspect that is due to his alcohol abuse. This has resulted in him vomiting blood. He states that he has been unable to eat anything for that period of time although he thinks his weight has been stable. This morning he states he is not nauseated. He is trying some clear liquids. I will advance his diet He is on regular diet. (3) Alcohol abuse: Code(s): F10.10 - Alcohol abuse, uncomplicated Status: Acute Assessment and Plan: He admits to drinking a pt of fireball daily. We will need to watch for alcohol withdrawal syndrome. He had that he does not drink nearly as much as he used to (4) Transaminitis: Code(s): R74.01 - Elevation of levels of liver transaminase levels Status: Acute Assessment and Plan: bilirubin is slightly elevated at 1.4 AST and ALT 101 and 65 respectively. I suspect this is due to alcohol abuse but we will trend these Parameters 12/06 transaminases and bilirubin have all returned to normal. (5) Dehydration: Code(s): E86.0 - Dehydration Status: Acute Assessment and Plan: with his hemoglobin over 19, he is obviously hemoconcentrated. Who be rehydrated with IV fluids. (6) Hypokalemia: Code(s): E87.6 - Hypokalemia Status: Acute Assessment and Plan: potassium is low at 2. 8 and will need to be replenished 12/06 electrolytes are all normalized except slightly low sodium, 137, typical for chronic liver disease (7) Alcohol withdrawal: Code(s): F10.939 - Alcohol use, unspecified with withdrawal, unspecified Status: Acute Assessment and Plan: CIWA peaked at 15 yesterday. Down to 6 today. I would believe we could taper off the sedation. Plan nausea, vomiting and hematemesis in a person who abuses alcohol. Possibilities are alcoholic gastritis, esophageal varices, Luda-Cameron syndrome. Endoscopy will be performed. We will empirically begin octreotide and PPI. Need to watch for alcohol withdrawal syndrome. Subjective Date/time seen: 12/06/22 07:28 Remains confused. I am told that he rested most of the night. No visible agitation. I question him to determine his orientation, he could not answer were he was at this time. Exam Const: General: lethargic (Sedated) Orientation/consciousness: confusion HENMT: Head: normal to inspection Ears: hearing grossly normal bilaterally Mouth: Yes Normal oral and palatal mucosa present Eyes: General: appearance normal, both eyes and all related structures Conjunctivae: conjunctivae normal Sclera: sclerae normal Neck: Neck: normal visual inspection Chest: Chest palpation & inspection: normal inspection of the chest Resp: Effort & Inspection: normal respiratory effort Auscultation: clear to auscultation bilaterally Cardio: Rate: regular rate Rhythm: regular rhythm GI: Inspection: normal to inspection GI Palp: Yes Soft to palpation, Yes Tenderness to palpation present (GI) ( tender across lower abdomen), No Guarding due to palpation present (GI), Yes Hepatomegaly prese
[2022-12-06] MEDS: POTASSIUM CHLORIDE 20 MEQ PACKET (FOR LIQUID) 40 MEQ PO (12:17)
[2022-12-06] MEDS: PANTOPRAZOLE SODIUM IV 40 MG VIAL IV PUSH ×2 (12:17→21:06)
--- NOTE | 2022-12-06 12:52 | WPDPN ---
Progress Note: A&P Assessment and Plan (1) Hematemesis: Qualifiers: Nausea presence: with nausea Qualified Code(s): K92.0 - Hematemesis Code(s): K92.0 - Hematemesis Status: Acute (2) Alcohol withdrawal: Code(s): F10.939 - Alcohol use, unspecified with withdrawal, unspecified Status: Acute (3) Acute alcoholic gastritis: Qualifiers: Gastritis bleeding: with bleeding Qualified Code(s): K29.21 - Alcoholic gastritis with bleeding Code(s): K29.20 - Alcoholic gastritis without bleeding Status: Acute (4) Transaminitis: Code(s): R74.01 - Elevation of levels of liver transaminase levels Status: Acute (5) Dehydration: Code(s): E86.0 - Dehydration Status: Acute (6) Hypokalemia: Code(s): E87.6 - Hypokalemia Status: Acute (7) Alcohol abuse: Code(s): F10.10 - Alcohol abuse, uncomplicated Status: Acute (8) Tobacco abuse: Code(s): Z72.0 - Tobacco use Status: Acute Plan The patient presented to the emergency department for evaluation of abdominal discomfort, nausea, dry heaves, and hematemesis as per HPI. Labs, imaging, EKG, and all reports were personally reviewed. He is profoundly dehydrated and he has been started on IV fluid rehydration. He likely has alcohol-induced gastritis though given his longstanding history of alcoholism, cannot rule out the presence of varices. He has been started on IV Protonix 40 mg b.i.d., an octreotide drip, and ceftriaxone 2 g Q 24 hours. He will be NPO after midnight for upper endoscopy tomorrow per Dr. Smith. Trend hemoglobin and hematocrit. Electrolytes will be made replete and will be monitored closely. Initiate CIWA protocol. He declines the need for nicotine patch at this time. 12/06/2022 interval history: 52-year-old male with history of alcohol abuse and drinks daily alcohol presented with abdominal pain and hematemesis, on 12/02 patient was seen GI and patient had EGD, it showed reflux esophagitis, esophageal stricture, hiatal gastritis and duodenitis, currently patient is awake and insiting to be discharge however patient has high risk of DT and on 02/02 patient was agitated last night was given Ativan 2mg x4, the patient is on CIWA protocol and Librium 50 mg every 6 hours is continued, today patient is little calm however patient does get agitate at night will continue librium to 25mg q6 and reassess and plan according, will monitor. will monitor electrolytes and supplement, Subjective Date/time seen: 12/06/22 12:52 Interval history: 12/06/2022 interval history: 52-year-old male with history of alcohol abuse and drinks daily alcohol presented with abdominal pain and hematemesis, on 12/02 patient was seen GI and patient had EGD, it showed reflux esophagitis, esophageal stricture, hiatal gastritis and duodenitis, currently patient is awake and insiting to be discharge however patient has high risk of DT and on 02/02 patient was agitated last night was given Ativan 2mg x4, the patient is on CIWA protocol and Librium 50 mg every 6 hours is continued, today patient is little calm however patient does get agitate at night will continue librium to 25mg q6 and reassess and plan according, will monitor. will monitor electrolytes and supplement, Review of Systems Review of Systems: Twelve systems were reviewed and are negative except for as per HPI. Objective Data Vital Signs Vital Signs: Vital Signs - 24 hr 12/05/22 14:00 12/05/22 16:00 12/05/22 16:00 Temperature Pulse Rate 58 L 63 Pulse Rate [Bilateral Pedal (Dorsalis Pedis) Palpation] Respiratory Rate Blood Pressure Pulse Oximetry Oxygen Delivery Room Air 12/05/22 16:00 12/05/22 18:00 12/05/22 19:34 Temperature 96.6 F L 97.5 F L Pulse Rate 60 80 62 Pulse Rate [Bilateral Pedal (Dorsalis Pedis) Palpation] Respiratory Rate 18 16 Blood Pressure 175/84 H 195/75 H Pulse Oxim
[2022-12-07] VITALS (12 sets, daily range): BP systolic 109–156; BP diastolic 59–81; PULSE 56–84; RESP 16–18; TEMP 36.4–36.7; O2SAT 97–100
[2022-12-07] MEDS: chlordiazePOXIDE (*CRX) 25 MG CAPSULE PO ×4 (00:39→23:57)
[2022-12-07 04:49] LABS: Hematocrit 44.5 % (42.0-52.0); Hemoglobin 15.7 g/dL (14.0-18.0); Mean Corpuscular HGB Conc 35.3 g/dl (32-36); Mean Corpuscular Hemoglobin 36.9 pg (26-34); Mean Corpuscular Volume 104.5 fl (80-100); Mean Platelet Volume 10.6 fl (7.4-10.4); Platelet Count Result 144 k/mm3 (150-375); Red Blood Count 4.26 M/mm3 (4.6-6.20); Red Cell Distribution Width 14.2 % (11.5-14.5); White Blood Count 7.3 K/mm3 (4.5-10.0)
[2022-12-07 05:03] LABS: Alanine Aminotransferase 42 U/L (6-50); Albumin Level 3.3 g/dL (3.5-5.1); Alkaline Phosphatase 102 U/L (38-126); Anion Gap 5 mmol/L (8-16); Aspartate Amino Transferase 40 U/L (17-59); Bilirubin,Total 0.5 mg/dL (0.2-1.3); Blood Urea Nitrogen 13 mg/dL (9-20); Calcium 8.8 mg/dL (8.4-10.2); Carbon Dioxide 29 mmol/L (22-30); Chloride 101 mmol/L (98-107); Estimated CRCL calculation 70 ml/min; Estimated Glomerular Filt Rate > 60; Glucose 113 mg/dL (65-110); Magnesium 1.9 mg/dL (1.6-2.3); Potassium 3.8 mmol/L (3.4-5.0); Sodium 135 mmol/L (137-145)
--- NOTE | 2022-12-07 07:16 | WPDGIPROGNO ---
Progress Note: A&P Assessment and Plan (1) Hematemesis: Qualifiers: Nausea presence: with nausea Qualified Code(s): K92.0 - Hematemesis Code(s): K92.0 - Hematemesis Status: Acute Assessment and Plan: he has had vomiting of dark and also bright red blood for the past 2 weeks. He states that his only pain is in his throat from vomiting. Possibilities include peptic ulcer disease due to use of NSAIDs, esophageal varices if he has portal hypertension, and more likely Luda-Cameron syndrome. He will be scheduled for EGD to be done tomorrow morning. I discussed EGD with him. He had diffuse gastritis. H pylori was negative. Also reflux esophagitis. I told that he needs to stay off alcohol and he should take PPI for at least 4-6 weeks. hemoglobin remains normal. 12/06 no further vomiting. (2) Nausea and vomiting: Code(s): R11.2 - Nausea with vomiting, unspecified Status: Acute Assessment and Plan: this began 2 weeks ago. I suspect that is due to his alcohol abuse. This has resulted in him vomiting blood. He states that he has been unable to eat anything for that period of time although he thinks his weight has been stable. This morning he states he is not nauseated. He is trying some clear liquids. I will advance his diet He is on regular diet. (3) Alcohol abuse: Code(s): F10.10 - Alcohol abuse, uncomplicated Status: Acute Assessment and Plan: He admits to drinking a pt of fireball daily. We will need to watch for alcohol withdrawal syndrome. He had that he does not drink nearly as much as he used to (4) Transaminitis: Code(s): R74.01 - Elevation of levels of liver transaminase levels Status: Acute Assessment and Plan: bilirubin is slightly elevated at 1.4 AST and ALT 101 and 65 respectively. I suspect this is due to alcohol abuse but we will trend these Parameters 12/06 transaminases and bilirubin have all returned to normal. 12/[address] scan could not be done, will schedule for ultrasound today. (5) Dehydration: Code(s): E86.0 - Dehydration Status: Acute Assessment and Plan: with his hemoglobin over 19, he is obviously hemoconcentrated. Who be rehydrated with IV fluids. (6) Hypokalemia: Code(s): E87.6 - Hypokalemia Status: Acute Assessment and Plan: potassium is low at 2. 8 and will need to be replenished 12/06 electrolytes are all normalized except slightly low sodium, 137, typical for chronic liver disease (7) Alcohol withdrawal: Code(s): F10.939 - Alcohol use, unspecified with withdrawal, unspecified Status: Acute Assessment and Plan: CIWA peaked at 15 yesterday. Down to 6 today. I would believe we could taper off the sedation. 12/07 he is much more alert today. Not tremulous as he was on admission. I told him that his [place] for him to stay off of alcohol. We will check for possible liver disease with ultrasound. He could not tell me how long he had been here in hospital. Plan nausea, vomiting and hematemesis in a person who abuses alcohol. Possibilities are alcoholic gastritis, esophageal varices, Luda-Cameron syndrome. Endoscopy will be performed. We will empirically begin octreotide and PPI. Need to watch for alcohol withdrawal syndrome. 12/07 Will check an ammonia level and ultrasound of the abdomen. Because he is eating now he can probably be discharged soon. Subjective Date/time seen: 12/07/22 07:16 he is more alert today. He was able to converse with me clearly. He said he had a great dinner last night in fact had asked for a 2nd helping of something. He simply cannot recall exactly what he ate other than roast beef. Exam Const: General: awake Orientation/consciousness: patient oriented x3 HENMT: Head: normal to inspection Ears: hearing grossly normal bilaterally Mouth: Yes Normal oral and palatal mucosa present
[2022-12-07 07:25] LABS: Ammonia < 9 umol/L (9-30)
[2022-12-07] MEDS: PANTOPRAZOLE SODIUM IV 40 MG VIAL IV PUSH ×2 (09:30→20:51)
[2022-12-07] MEDS: POTASSIUM CHLORIDE 20 MEQ PACKET (FOR LIQUID) 40 MEQ PO (09:30)
--- NOTE | 2022-12-07 15:51 | WPDPN ---
Progress Note: A&P Assessment and Plan (1) Hematemesis: Qualifiers: Nausea presence: with nausea Qualified Code(s): K92.0 - Hematemesis Code(s): K92.0 - Hematemesis Status: Acute (2) Alcohol withdrawal: Code(s): F10.939 - Alcohol use, unspecified with withdrawal, unspecified Status: Acute (3) Acute alcoholic gastritis: Qualifiers: Gastritis bleeding: with bleeding Qualified Code(s): K29.21 - Alcoholic gastritis with bleeding Code(s): K29.20 - Alcoholic gastritis without bleeding Status: Acute (4) Transaminitis: Code(s): R74.01 - Elevation of levels of liver transaminase levels Status: Acute (5) Dehydration: Code(s): E86.0 - Dehydration Status: Acute (6) Hypokalemia: Code(s): E87.6 - Hypokalemia Status: Acute (7) Alcohol abuse: Code(s): F10.10 - Alcohol abuse, uncomplicated Status: Acute (8) Tobacco abuse: Code(s): Z72.0 - Tobacco use Status: Acute Plan The patient presented to the emergency department for evaluation of abdominal discomfort, nausea, dry heaves, and hematemesis as per HPI. Labs, imaging, EKG, and all reports were personally reviewed. He is profoundly dehydrated and he has been started on IV fluid rehydration. He likely has alcohol-induced gastritis though given his longstanding history of alcoholism, cannot rule out the presence of varices. He has been started on IV Protonix 40 mg b.i.d., an octreotide drip, and ceftriaxone 2 g Q 24 hours. He will be NPO after midnight for upper endoscopy tomorrow per Dr. Smith. Trend hemoglobin and hematocrit. Electrolytes will be made replete and will be monitored closely. Initiate CIWA protocol. He declines the need for nicotine patch at this time. 12/07/2022 interval history: 52-year-old male with history of alcohol abuse and drinks daily alcohol presented with abdominal pain and hematemesis, on 12/02 patient was seen GI and patient had EGD, it showed reflux esophagitis, esophageal stricture, hiatal gastritis and duodenitis, currently patient is awake and insiting to be discharge however patient has high risk of DT and on 02/02 patient was agitated last night was given Ativan 2mg x4, the patient is on CIWA protocol and Librium 50 mg every 6 hours is continued, today patient is little calm however patient does get agitate at night will continue librium to 25mg q6 and taper it to PRN, and reassess and plan according, seen by GI patient is clinically improving and eating, will monitor. will monitor electrolytes and supplement. patient will benefit going to rehab. Subjective Date/time seen: 12/07/22 15:51 Interval history: 12/07/2022 interval history: 52-year-old male with history of alcohol abuse and drinks daily alcohol presented with abdominal pain and hematemesis, on 12/02 patient was seen GI and patient had EGD, it showed reflux esophagitis, esophageal stricture, hiatal gastritis and duodenitis, currently patient is awake and insiting to be discharge however patient has high risk of DT and on 02/02 patient was agitated last night was given Ativan 2mg x4, the patient is on CIWA protocol and Librium 50 mg every 6 hours is continued, today patient is little calm however patient does get agitate at night will continue librium to 25mg q6 and taper it to PRN, and reassess and plan according, seen by GI patient is clinically improving and eating, will monitor. will monitor electrolytes and supplement. patient will benefit going to rehab. Review of Systems Review of Systems: Twelve systems were reviewed and are negative except for as per HPI. Objective Data Vital Signs Vital Signs: Vital Signs - 24 hr 12/06/22 16:00 12/06/22 16:00 12/06/22 16:00 Temperature 98 F Pulse Rate 57 L 61 Pulse Rate [Bilateral Pedal (Dorsalis Pedis) Palpation] Respiratory Rate 16 Blood Pressure 118/71 Pulse Oximetry 100 Oxygen Delivery
[2022-12-08] VITALS: PULSE 58
[2022-12-08 04:00] VITALS: PULSE 62
[2022-12-08 04:56] LABS: Hematocrit 43.5 % (42.0-52.0); Hemoglobin 15.3 g/dL (14.0-18.0); Mean Corpuscular HGB Conc 35.2 g/dl (32-36); Mean Corpuscular Hemoglobin 36.9 pg (26-34); Mean Corpuscular Volume 104.8 fl (80-100); Mean Platelet Volume 10.4 fl (7.4-10.4); Platelet Count Result 186 k/mm3 (150-375); Red Blood Count 4.15 M/mm3 (4.6-6.20); Red Cell Distribution Width 14.6 % (11.5-14.5); White Blood Count 6.9 K/mm3 (4.5-10.0)
[2022-12-08 05:14] LABS: Alanine Aminotransferase 41 U/L (6-50); Albumin Level 3.4 g/dL (3.5-5.1); Alkaline Phosphatase 89 U/L (38-126); Anion Gap 7 mmol/L (8-16); Aspartate Amino Transferase 39 U/L (17-59); Bilirubin,Total 0.6 mg/dL (0.2-1.3); Blood Urea Nitrogen 13 mg/dL (9-20); Calcium 8.8 mg/dL (8.4-10.2); Carbon Dioxide 26 mmol/L (22-30); Chloride 102 mmol/L (98-107); Estimated CRCL calculation 58 ml/min; Estimated Glomerular Filt Rate > 60; Glucose 100 mg/dL (65-110); Magnesium 1.8 mg/dL (1.6-2.3); Potassium 3.8 mmol/L (3.4-5.0); Sodium 135 mmol/L (137-145)
[2022-12-08] MEDS: chlordiazePOXIDE (*CRX) 25 MG CAPSULE PO ×2 (05:51→12:35)
[2022-12-08 08:00] VITALS: BP 140/67; PULSE 59; PULSE 70; RESP 16; TEMP 36.3; O2SAT 100
[2022-12-08] MEDS: PANTOPRAZOLE SODIUM IV 40 MG VIAL IV PUSH (09:03)
[2022-12-08] MEDS: POTASSIUM CHLORIDE 20 MEQ PACKET (FOR LIQUID) 40 MEQ PO (09:03)
--- NOTE | 2022-12-08 10:20 | WPDGIPROGNO ---
Progress Note: A&P Assessment and Plan (1) Hematemesis: Qualifiers: Nausea presence: with nausea Qualified Code(s): K92.0 - Hematemesis Code(s): K92.0 - Hematemesis Status: Acute Assessment and Plan: he has had vomiting of dark and also bright red blood for the past 2 weeks. He states that his only pain is in his throat from vomiting. Possibilities include peptic ulcer disease due to use of NSAIDs, esophageal varices if he has portal hypertension, and more likely Luda-Cameron syndrome. He will be scheduled for EGD to be done tomorrow morning. I discussed EGD with him. He had diffuse gastritis. H pylori was negative. Also reflux esophagitis. I told that he needs to stay off alcohol and he should take PPI for at least 4-6 weeks. hemoglobin remains normal. 12/06 no further vomiting. (2) Nausea and vomiting: Code(s): R11.2 - Nausea with vomiting, unspecified Status: Acute Assessment and Plan: this began 2 weeks ago. I suspect that is due to his alcohol abuse. This has resulted in him vomiting blood. He states that he has been unable to eat anything for that period of time although he thinks his weight has been stable. This morning he states he is not nauseated. He is trying some clear liquids. I will advance his diet He is on regular diet. (3) Alcohol abuse: Code(s): F10.10 - Alcohol abuse, uncomplicated Status: Acute Assessment and Plan: He admits to drinking a pt of fireball daily. We will need to watch for alcohol withdrawal syndrome. He had that he does not drink nearly as much as he used to (4) Transaminitis: Code(s): R74.01 - Elevation of levels of liver transaminase levels Status: Acute Assessment and Plan: bilirubin is slightly elevated at 1.4 AST and ALT 101 and 65 respectively. I suspect this is due to alcohol abuse but we will trend these Parameters 12/06 transaminases and bilirubin have all returned to normal. 12/[address] scan could not be done, will schedule for ultrasound today. (5) Dehydration: Code(s): E86.0 - Dehydration Status: Acute Assessment and Plan: with his hemoglobin over 19, he is obviously hemoconcentrated. Who be rehydrated with IV fluids. (6) Hypokalemia: Code(s): E87.6 - Hypokalemia Status: Acute Assessment and Plan: potassium is low at 2. 8 and will need to be replenished 12/06 electrolytes are all normalized except slightly low sodium, 137, typical for chronic liver disease (7) Alcohol withdrawal: Code(s): F10.939 - Alcohol use, unspecified with withdrawal, unspecified Status: Acute Assessment and Plan: CIWA peaked at 15 yesterday. Down to 6 today. I would believe we could taper off the sedation. 12/07 he is much more alert today. Not tremulous as he was on admission. I told him that his [place] for him to stay off of alcohol. We will check for possible liver disease with ultrasound. He could not tell me how long he had been here in hospital. 12/08/2022 he is much more alert today. He is states that he will have the support of his family and in particular his fiancee in terms of him stay away from alcohol (8) Abnormal ultrasound of liver: Code(s): R93.2 - Abnormal findings on diagnostic imaging of liver and biliary tract Status: Acute Assessment and Plan: hypoattenuating lesions were seen in the liver. Will order MRI to further elucidate. Plan nausea, vomiting and hematemesis in a person who abuses alcohol. Possibilities are alcoholic gastritis, esophageal varices, Luda-Cameron syndrome. Endoscopy will be performed. We will empirically begin octreotide and PPI. Need to watch for alcohol withdrawal syndrome. 12/07 Will check an ammonia level and ultrasound of the abdomen. Because he is eating now he can probably be discharged soon. Subjective Date/time seen: 12/08/22 10:20 h
[2022-12-08 12:00] VITALS: PULSE 62
[2022-12-08] MEDS: diphenhydrAMINE HCl CAP 25 MG CAPSULE 50 MG PO (14:00)
--- NOTE | 2022-12-08 15:01 | WPDPN ---
Progress Note: A&P Assessment and Plan (1) Hematemesis: Qualifiers: Nausea presence: with nausea Qualified Code(s): K92.0 - Hematemesis Code(s): K92.0 - Hematemesis Status: Acute (2) Alcohol withdrawal: Code(s): F10.939 - Alcohol use, unspecified with withdrawal, unspecified Status: Acute (3) Acute alcoholic gastritis: Qualifiers: Gastritis bleeding: with bleeding Qualified Code(s): K29.21 - Alcoholic gastritis with bleeding Code(s): K29.20 - Alcoholic gastritis without bleeding Status: Acute (4) Transaminitis: Code(s): R74.01 - Elevation of levels of liver transaminase levels Status: Acute (5) Dehydration: Code(s): E86.0 - Dehydration Status: Acute (6) Hypokalemia: Code(s): E87.6 - Hypokalemia Status: Acute (7) Alcohol abuse: Code(s): F10.10 - Alcohol abuse, uncomplicated Status: Acute (8) Tobacco abuse: Code(s): Z72.0 - Tobacco use Status: Acute Plan The patient presented to the emergency department for evaluation of abdominal discomfort, nausea, dry heaves, and hematemesis as per HPI. Labs, imaging, EKG, and all reports were personally reviewed. He is profoundly dehydrated and he has been started on IV fluid rehydration. He likely has alcohol-induced gastritis though given his longstanding history of alcoholism, cannot rule out the presence of varices. He has been started on IV Protonix 40 mg b.i.d., an octreotide drip, and ceftriaxone 2 g Q 24 hours. He will be NPO after midnight for upper endoscopy tomorrow per Dr. Smith. Trend hemoglobin and hematocrit. Electrolytes will be made replete and will be monitored closely. Initiate CIWA protocol. He declines the need for nicotine patch at this time. 12/08/2022 interval history: 52-year-old male with history of alcohol abuse and drinks daily alcohol presented with abdominal pain and hematemesis, on 12/02 patient was seen GI and patient had EGD, it showed reflux esophagitis, esophageal stricture, hiatal gastritis and duodenitis, currently patient is awake and insiting to be discharge however patient has high risk of DT and on 02/02 patient was agitated last night was given Ativan 2mg x4, the patient is on CIWA protocol and Librium 50 mg every 6 hours is continued, today patient is little calm however patient does get agitate at night will continue librium to 25mg q6 and taper it to PRN, and reassess and plan according, seen by GI patient is clinically improving and eating GI had ordered abdominal US, it showed hypoattenuating lesions of the liver to further evaluate GI has ordered, MRI, will follow up, will monitor. will monitor electrolytes and supplement. patient will benefit going to rehab. Subjective Date/time seen: 12/08/22 15:01 Interval history: 12/08/2022 interval history: 52-year-old male with history of alcohol abuse and drinks daily alcohol presented with abdominal pain and hematemesis, on 12/02 patient was seen GI and patient had EGD, it showed reflux esophagitis, esophageal stricture, hiatal gastritis and duodenitis, currently patient is awake and insiting to be discharge however patient has high risk of DT and on 02/02 patient was agitated last night was given Ativan 2mg x4, the patient is on CIWA protocol and Librium 50 mg every 6 hours is continued, today patient is little calm however patient does get agitate at night will continue librium to 25mg q6 and taper it to PRN, and reassess and plan according, seen by GI patient is clinically improving and eating GI had ordered abdominal US, it showed hypoattenuating lesions of the liver to further evaluate GI has ordered, MRI, will follow up, will monitor. will monitor electrolytes and supplement. patient will benefit going to rehab. Review of Systems Review of Systems: Twelve systems were reviewed and are negative except for as per HPI. Objective Data Vital Signs Vital S
--- NOTE | 2022-12-08 15:53 | PM.DS ---
DS: Admitting Diagnosis Discharge Date 12/08/2022 Admitting Diagnosis Vomiting DS: Discharge Diagnosis Discharge Diagnosis (1) Hematemesis: Qualifiers: Nausea presence: with nausea Qualified Code(s): K92.0 - Hematemesis Code(s): K92.0 - Hematemesis Status: Acute (2) Alcohol withdrawal: Code(s): F10.939 - Alcohol use, unspecified with withdrawal, unspecified Status: Acute (3) Acute alcoholic gastritis: Qualifiers: Gastritis bleeding: with bleeding Qualified Code(s): K29.21 - Alcoholic gastritis with bleeding Code(s): K29.20 - Alcoholic gastritis without bleeding Status: Acute (4) Transaminitis: Code(s): R74.01 - Elevation of levels of liver transaminase levels Status: Acute (5) Dehydration: Code(s): E86.0 - Dehydration Status: Acute (6) Hypokalemia: Code(s): E87.6 - Hypokalemia Status: Acute (7) Alcohol abuse: Code(s): F10.10 - Alcohol abuse, uncomplicated Status: Acute (8) Tobacco abuse: Code(s): Z72.0 - Tobacco use Status: Acute Plan The patient presented to the emergency department for evaluation of abdominal discomfort, nausea, dry heaves, and hematemesis as per HPI. Labs, imaging, EKG, and all reports were personally reviewed. He is profoundly dehydrated and he has been started on IV fluid rehydration. He likely has alcohol-induced gastritis though given his longstanding history of alcoholism, cannot rule out the presence of varices. He has been started on IV Protonix 40 mg b.i.d., an octreotide drip, and ceftriaxone 2 g Q 24 hours. He will be NPO after midnight for upper endoscopy tomorrow per Dr. Smith. Trend hemoglobin and hematocrit. Electrolytes will be made replete and will be monitored closely. Initiate CIWA protocol. He declines the need for nicotine patch at this time. 12/08/2022 interval history: 52-year-old male with history of alcohol abuse and drinks daily alcohol presented with abdominal pain and hematemesis, on 12/02 patient was seen GI and patient had EGD, it showed reflux esophagitis, esophageal stricture, hiatal gastritis and duodenitis, currently patient is awake and insiting to be discharge however patient has high risk of DT and on 02/02 patient was agitated last night was given Ativan 2mg x4, the patient is on CIWA protocol and Librium 50 mg every 6 hours is continued, today patient is little calm however patient does get agitate at night will continue librium to 25mg q6 and taper it to PRN, and reassess and plan according, seen by GI patient is clinically improving and eating GI had ordered abdominal US, it showed hypoattenuating lesions of the liver to further evaluate GI has ordered, MRI, will follow up, will monitor. will monitor electrolytes and supplement. patient will benefit going to rehab. DS: Summary Hospital Course Reason for hospitalization: Vomiting. Narrative: This is a very pleasant 52-year-old male with history of alcohol abuse and epilepsy as a child (no longer on medication; he has not had a seizure for well over 40 years) who presented to the emergency department via private vehicle from home for evaluation of vomiting. Patient provides the following history. The last several weeks he has had intermittent episodes of abdominal discomfort, nausea, dry heaves, and more recently he has had several episodes of hematemesis. He has been cutting back on his alcohol intake as it seems to make ?the fire in my belly? worse. Unfortunately he has a longstanding history of alcohol abuse and he tends to have shakes upon waking in the morning and he shots of alcohol to prevent that from happening throughout the day. He also has noticed that his stools are a bit darker than usual. He has never had a colonoscopy. He does on occasion take ibuprofen or Excedrin but not frequently at all. He denies significant caffeine use. He has not had chest pain or shortness of breath.
[2022-12-08 16:00] VITALS: BP 145/80; PULSE 63; RESP 20; TEMP 36.8; O2SAT 99
--- NOTE | 2022-12-08 17:05 | PC.NURSE ---
Patient refuses to go to rehab for physical therapy or for alcoholism. Patient is alert and oriented X3 even though significant other says he is not in his right mind. Patient states that he has a walker at home that he can use. When going over discharge paperwork reminding patient how important it is to use walker so he doesn't fall while he is still week significant other states that he doesn't have a walker at home. This nurse educated them that there will be walkers available for purchase at [facility] and that if they would like to try and get insurance to cover it they will have to stay overnight and wait until tomorrow. Patient refuses to stay the night and just wants to go home. Again educated on the importance of using a walker and not drinking alcohol.
== END 2022-12-08 17:05 | disposition home or self-care (01) | DRG 378 ==
LOC: ANHED 14:01 → ANHIMU 16:06 → ANHICU 17:31 → ANHIMU 12-02 19:01
PROVIDERS: Emergency Medicine; Internal Medicine; Internal Medicine Gastroenterology; Physician Assistant; Admitting Provider Family Medicine; Emergency Provider Emergency Medicine; PCP Physician Assistant; Visit Provider Family Medicine
PROC: 0DJ08ZZ Inspection of Upper Intestinal Tract, Via Natural or Artificial Opening Endoscopic (ICD-10-PCS; CPT 43235; principal; 2022-12-02 15:30)
DX: K29.21 Alcoholic gastritis with bleeding (principal); F10.139 Alcohol abuse with withdrawal, unspecified; F17.210 Nicotine dependence, cigarettes, uncomplicated; K21.00 Gastro-esophageal reflux disease with esophagitis, without bleeding; K22.2 Esophageal obstruction; K44.9 Diaphragmatic hernia without obstruction or gangrene; K29.80 Duodenitis without bleeding; E86.0 Dehydration; E87.6 Hypokalemia; R74.01 Elevation of levels of liver transaminase levels; R93.2 Abnormal findings on diagnostic imaging of liver and biliary tract
CPT/HCPCS: 36415; 74177; 74183; 76700; 80048; 80053; 80074; 81001; 82140; 82607; 82728; 82746; 82948; 83540; 83550; 83690; 83735; 84132; 84443; 84600; 85025; 85027; 85046; 85055; 85610; 87081; 87086; 88305; 93005; 96361; 96365; 96366; 96367; 96372; 96374; 96375; 96376; 97161; 99285; A9270; A9577; C9113; G0378; J0696; J1630; J2060; J2354; J2405; J2704; J3411; J3475; J3480; J7030; J7040; J7042; J7120; Q9967

== ENCOUNTER 2023-07-08 00:49 | Emergency (ER) | payer OTHER, SELFPAY ==
[2023-07-08] VITALS (24 sets, daily range): BP systolic 146–182; BP diastolic 69–102; PULSE 77–99; RESP 12–22; TEMP 37.2; O2SAT 92–100
--- NOTE | 2023-07-08 01:12 | ECG_ITS ---
Measurements Intervals [place] Rate: 87 P: 83 MN: 149 QRS: 66 QRSD: 94 T: 79 QT: 376 QTc: 452 Interpretive Statements SINUS RHYTHM NORMAL ECG NO PREVIOUS ECG AVAILABLE FOR COMPARISON Electronically Signed On 07-08-2023 6:46:07 MECHANICAL TEST TECHNICIAN by Juan Carlos Sosa D.O.
[2023-07-08 01:46] LABS: Basophils Absolute Auto 0.1 K/mm3 (0.0-0.1); Eosinophils Absolute Auto 0.1 K/mm3 (0-0.3); Eosinophils Percent Auto 1.9 % (0-4.4); Hematocrit 47.9 % (42.0-52.0); Hemoglobin 16.8 g/dL (14.0-18.0); Immature Granulocyte Absolute 0.02 K/mm3 (0.00-0.031); Immature Granulocyte Percent A 0.3 % (0-0.5); Lymphocytes Absolute Auto 3.03 K/mm3 (0.9-3.2); Lymphocytes Percent Auto 48.2 % (18.3-44.2); Mean Corpuscular HGB Conc 35.1 g/dl (32-36); Mean Corpuscular Hemoglobin 36.3 pg (26-34); Mean Corpuscular Volume 103.5 fl (80-100); Monocytes Absolute Auto 0.7 K/mm3 (0.1-0.6); Monocytes Percent Auto 11.1 % (2.6-8.5); Neutrophils Absolute Auto 2.4 K/mm3 (1.3-6.7); Neutrophils Percent Auto 37.5 % (45.5-73.1); Platelet Count Result 196 k/mm3 (150-375); Red Blood Count 4.63 M/mm3 (4.6-6.20); Red Cell Distribution Width 16.4 % (11.5-14.5); White Blood Count 6.3 K/mm3 (4.5-10.0)
[2023-07-08 02:31] LABS: Alanine Aminotransferase 111 U/L (6-50); Alkaline Phosphatase 132 U/L (38-126); Anion Gap 16 mmol/L (8-16); Aspartate Amino Transferase 186 U/L (17-59); Bilirubin,Total 0.6 mg/dL (0.2-1.3); Blood Urea Nitrogen 7 mg/dL (9-20); Calcium 8.2 mg/dL (8.4-10.2); Carbon Dioxide 28 mmol/L (22-30); Chloride 101 mmol/L (98-107); Estimated CRCL calculation 72 ml/min; Estimated Glomerular Filt Rate > 60; Glucose 108 mg/dL (65-110); Potassium 2.7 mmol/L (3.4-5.0); Sodium 145 mmol/L (137-145)
[2023-07-08 02:38] LABS: Ethanol 305 mg/dL (<10)
[2023-07-08 03:10] LABS: Appearance Urine Clear (Clear); Bacteria Urine None Seen /hpf; Bilirubin Urine Negative (Negative); Color Urine Dark Yellow (Yellow); Glucose Urine UA Negative (Negative); Ketones Urine Negative (Negative); Leukocyte Esterase Ur Trace LEU/UL (Negative); Nitrate Urine Negative (Negative); Non Pathogenic Casts 0-2; Protein Urine 1+ mg/dL (Negative); Specific Grav Ur 1.018 (1.001-1.035); Squamous Epithelial Cell Urine None seen /hpf (Few); WBC Urine 0-5 /hpf
--- NOTE | 2023-07-08 03:13 | ED.GENADULT ---
HPI - General Adult General Chief complaint: Psychiatric Symptoms <Giuliano Sandoval MD - Last Filed: 07/08/23 03:19> Stated complaint: SI <Giuliano Sandoval MD - Last Filed: 07/08/23 03:19> Time Seen by Provider: 07/08/23 00:52 <Giuliano Sandoval MD - Last Filed: 07/08/23 03:19> History of Present Illness HPI narrative: the patient is a 53-year-old gentleman who presents emergency department with chief complaint of suicidal ideation. Patient reports he has been drinking fireball day and reports he has been under lot of stress lately and reports that he is having thoughts of hurting himself. The patient reports he took a bottle and was going to strike his head and also took a belt and loosely wrapped around his neck without strangling himself. EMS was called the patient was transported to the emergency department the patient still expresses suicidal thoughts. <Giuliano Sandoval MD - Last Filed: 07/08/23 03:19> Related Data Allergies/adverse reactions: Allergies Allergy/AdvReac Type Severity Reaction Status Date / Time iohexol AdvReac Mild Nausea Verified 12/04/22 23:25 [From contrast - CT, X-RAY] <Giuliano Sandoval MD - Last Filed: 07/08/23 03:19> Review of Systems Review of Systems: A 10 system review of systems was completed on the patient and is negative except for what is stated in the HPI. Nursing and ancillary documentation was reviewed. <Giuliano Sandoval MD - Last Filed: 07/08/23 03:19> [facility] Past Medical History Medical History: Medical History Alcohol abuse Tobacco abuse <Giuliano Sandoval MD - Last Filed: 07/08/23 03:19> Surgical History Surgical History: Surgical History No history of previous surgery <Giuliano Sandoval MD - Last Filed: 07/08/23 03:19> Family History Family History: Family History Mother Diabetes mellitus <Giuliano Sandoval MD - Last Filed: 07/08/23 03:19> Social History Social History: Social History Social History: Surrogate medical decision maker: sally Burden. Code status: Full code. Smoking packs per day: 1.5 Smoking cigarettes per day: 30.0 Smoking status: Current every day smoker Tobacco type: cigarettes Alcohol intake: current Drinks per week: 63 Alcohol use details: Drinks a pint of fireball a day. Substance use: current Substance use type: marijuana Other substance usage details: smokes marijuana daily Lack of Transportation: No Lack of Food: Never True Current Housing: I Have Housing Concerned About Future Housing: No Difficulty Paying Gas/Electric Bills: No Difficulty Paying for Meds: No Currently Unemployed: YES Education: High School Diploma/GED Difficulty w/ Childcare or Family Care: No Additional living arrangements comments: Lives in [place] with sally. Additional occupation/education comments: Works in sales at [employer]. Spiritual care concerns: No <Giuliano Sandoval MD - Last Filed: 07/08/23 03:19> Exam Narrative: GENERAL: Well-appearing, well-nourished, and in no acute distress. HEAD: Normocephalic, atraumatic. EYES: PERRLA and EOMI. ENT: Nares clear, no rhinorrhea or epistaxis. Mucous membranes moist. NECK: Supple. CHEST: Clear to auscultation. No respiratory distress. HEART: Regular rate and rhythm. No murmur heard. Normal peripheral pulses. ABDOMEN: Soft, nontender, nondistended, normal active bowel sounds. EXTREMITIES: Normal range of motion. No edema. SKIN: Warm, dry, no rash. NEURO: No focal deficits. Alert and oriented x3. PSYCH: Tearful, intoxicated <Giuliano Sandoval MD - Last F
[2023-07-08] MEDS: POTASSIUM CHLORIDE 20 MEQ PACKET (FOR LIQUID) 40 MEQ PO (03:18)
[2023-07-08] MEDS: SODIUM CHLORIDE 0.9% IV 1,000 ML 999 ML IV CONT (03:19)
[2023-07-08 03:20] LABS: Add Urine Microscopic? YES
[2023-07-08] MEDS: KCL 20 MEQ/SW 100 ML 100 ML 50 MEQ IVPB (03:21)
[2023-07-08 05:03] LABS: Amphetamine Screen Urine Negative (Negative); Barbiturate Screen Urine Negative (Negative); Benzodiazepines Screen Urine Negative (Negative); Cannabinoid Screen Urine Positive (Negative); Cocaine Screen Urine Negative (Negative); Methadone Screen Urine Negative (Negative); Opiate Screen Urine Negative (Negative); Phencyclidine Screen Urine Negative (Negative)
[2023-07-08 06:25] LABS: Potassium 3.7 mmol/L (3.4-5.0)
[2023-07-08 06:28] LABS: Ethanol 177 mg/dL (<10)
[2023-07-08 10:27] LABS: Ethanol 83 mg/dL (<10)
--- NOTE | 2023-07-08 14:52 | PC.NURSE ---
crisis reports pt will be discharged on safety plan.
== END 2023-07-08 15:26 | disposition home or self-care (01) ==
PROVIDERS: Emergency Medicine; Emergency Provider Emergency Medicine; PCP Physician Assistant
DX: F10.10 Alcohol abuse, uncomplicated (principal); Y90.6 Blood alcohol level of 120-199 mg/100 ml; R45.851 Suicidal ideations; F17.210 Nicotine dependence, cigarettes, uncomplicated
CPT/HCPCS: 36415; 80053; 80307; 81001; 83735; 84132; 84443; 85025; 93005; 96365; 96366; 99284; A9270; J3480; J7030

== ENCOUNTER 2023-07-25 11:24 | Emergency (ER) | payer MEDICAID, SELFPAY ==
[2023-07-25 11:29] VITALS: BP 138/86; PULSE 88; RESP 20; TEMP 36.1
--- NOTE | 2023-07-25 12:33 | ED.ALCOHOL ---
HPI - Alcohol General Chief Complaint: Alcohol Stated Complaint: alcohol Time Seen by Provider: 07/25/23 12:30 Focused HPI: Patient is a 53 y/o male who presents to the ED via EMS wanting to quit drinking alcohol. Patient has history of alcoholism, drinks daily, up to 6-8 airplane shooters per day, however much he can get his hands on. Last drank 4 shooters this morning before 6am today. He c/o nausea currently. Has had withdrawal symptoms before. States he has had seizures before r/t TBI. Denies hx of seizures r/t withdrawals. Has gone to rehab before and wanting help quitting. States he was scheduled to go to rehab today but wound up here, states his S.O. called EMS. GENERAL: Appears older than stated age, and in no acute distress. HEAD: Normocephalic, atraumatic. ENT: Edentulous. CHEST: Clear to auscultation. ?No respiratory distress. HEART: Regular rate and rhythm.? NEURO: ?Alert and oriented x3. PSYCHIATRIC: Tearful. Patient screened in triage and initial orders placed.? ?Additional care and disposition to be based upon?diagnostic testing and treatment. Source: patient Mode of arrival: EMS Limitations: no limitations Related Data Allergies Allergy/AdvReac Type Severity Reaction Status Date / Time iohexol AdvReac Mild Nausea Verified 07/25/23 13:47 [From contrast - CT, X-RAY] [facility] Past Medical History Medical History Alcohol abuse Tobacco abuse Surgical History Surgical History No history of previous surgery Family History Family History Mother Diabetes mellitus Social History Social History Social History: Surrogate medical decision maker: sally Burden. Code status: Full code. Smoking packs per day: 1.5 Smoking cigarettes per day: 30.0 Smoking status: Current every day smoker Tobacco type: cigarettes Alcohol intake: current Drinks per week: 63 Alcohol use details: Drinks a pint of fireball a day. Substance use: current Substance use type: marijuana Other substance usage details: smokes marijuana daily Lack of Transportation: No Lack of Food: Never True Current Housing: I Have Housing Concerned About Future Housing: No Difficulty Paying Gas/Electric Bills: No Difficulty Paying for Meds: No Currently Unemployed: YES Education: High School Diploma/GED Difficulty w/ Childcare or Family Care: No Additional living arrangements comments: Lives in [place] with sally. Additional occupation/education comments: Works in [employer] at [employer]. Spiritual care concerns: No Course Vital Signs Vital signs: Vital Signs Temperature 96.9 F L 07/25/23 11:29 Pulse Rate 88 07/25/23 11:29 Respiratory Rate 20 07/25/23 11:29 Blood Pressure 138/86 07/25/23 11:29 Oxygen Delivery Room Air 07/25/23 11:29 Temperature 97.4 F L 07/25/23 13:48 Pulse Rate 90 07/25/23 16:50 Respiratory Rate 20 07/25/23 16:50 Blood Pressure 150/89 H 07/25/23 16:50 Pulse Oximetry 98 07/25/23 16:50 Oxygen Delivery Room Air 07/25/23 13:48 MDM - Alcohol MDM Narrative Medical decision making narrative: MSE by KISHORE in triage. Lab Data 07/25/23 12:57 07/25/23 12:57 Labs: Lab Results 07/25/23 07/25/23 Range/Units 12:57 13:01 WBC 7.1 (4.5-10.0) K/mm3 RBC 4.31 L (4.6-6.20) M/mm3 Hgb 15.9 (14.0-18.0) g/dL Hct 44.6 (42.0-52.0) % MCV 103.5 H (80-100) fl MCH 36.9 H (26-34) pg MCHC 35.7 (32-36) g/dl RDW 15.3 H (11.5-14.5) % Plt Count 179 (150-375) k/mm3 MPV 10.1 (7.4-10.4) fl Immature Gran % (Auto) 0.3 (0-0.5) % Neut % (Auto) 38.6 L (45.5-73.1) % Lymph % (Auto) 49.8 H (18.3-44.2) % [place] % (Auto) 8.9 H (2.6-8.5) % Eos % (Auto
--- NOTE | 2023-07-25 12:35 | ECG_ITS ---
Measurements Intervals [place] Rate: 76 P: 83 [place]: 153 QRS: 67 QRSD: 89 T: 80 QT: 394 QTc: 443 Interpretive Statements SINUS RHYTHM COMPARED TO ECG 12/01/2022 20:02:40 NO SIGNIFICANT CHANGES Electronically Signed On 07-25-2023 15:21:21 CARD DECORATOR by Asher Preston M.D.
[2023-07-25] MEDS: ONDANSETRON HCL ODT 4 MG TABLET PO (12:54)
[2023-07-25 13:11] LABS: Basophils Absolute Auto 0.1 K/mm3 (0.0-0.1); Basophils Percent Auto 0.8 % (0.2-1.2); Eosinophils Absolute Auto 0.1 K/mm3 (0-0.3); Eosinophils Percent Auto 1.6 % (0-4.4); Hematocrit 44.6 % (42.0-52.0); Hemoglobin 15.9 g/dL (14.0-18.0); Immature Granulocyte Absolute 0.02 K/mm3 (0.00-0.031); Immature Granulocyte Percent A 0.3 % (0-0.5); Lymphocytes Absolute Auto 3.52 K/mm3 (0.9-3.2); Lymphocytes Percent Auto 49.8 % (18.3-44.2); Mean Corpuscular HGB Conc 35.7 g/dl (32-36); Mean Corpuscular Hemoglobin 36.9 pg (26-34); Mean Corpuscular Volume 103.5 fl (80-100); Mean Platelet Volume 10.1 fl (7.4-10.4); Monocytes Absolute Auto 0.6 K/mm3 (0.1-0.6); Monocytes Percent Auto 8.9 % (2.6-8.5); Neutrophils Absolute Auto 2.7 K/mm3 (1.3-6.7); Neutrophils Percent Auto 38.6 % (45.5-73.1); Platelet Count Result 179 k/mm3 (150-375); Red Blood Count 4.31 M/mm3 (4.6-6.20); Red Cell Distribution Width 15.3 % (11.5-14.5); White Blood Count 7.1 K/mm3 (4.5-10.0)
[2023-07-25 13:14] LABS: Appearance Urine Cloudy (Clear); Bacteria Urine None Seen /hpf; Bilirubin Urine Negative (Negative); Color Urine Dark Yellow (Yellow); Glucose Urine UA Negative (Negative); Ketones Urine Negative (Negative); Leukocyte Esterase Ur Trace LEU/UL (Negative); Nitrate Urine Negative (Negative); Non Pathogenic Casts 0-2; Protein Urine Trace mg/dL (Negative); Specific Grav Ur 1.016 (1.001-1.035); Squamous Epithelial Cell Urine None seen /hpf (Few); WBC Urine 0-5 /hpf
[2023-07-25 13:22] LABS: Ethanol 271 mg/dL (<10)
[2023-07-25 13:23] LABS: Alanine Aminotransferase 52 U/L (6-50); Albumin Level 3.7 g/dL (3.5-5.1); Alkaline Phosphatase 129 U/L (38-126); Anion Gap 9 mmol/L (8-16); Aspartate Amino Transferase 86 U/L (17-59); Blood Urea Nitrogen 5 mg/dL (9-20); Calcium 8.7 mg/dL (8.4-10.2); Carbon Dioxide 31 mmol/L (22-30); Chloride 99 mmol/L (98-107); Estimated CRCL calculation 75 ml/min; Estimated Glomerular Filt Rate > 60; Glucose 105 mg/dL (65-110); Magnesium 2.1 mg/dL (1.6-2.3); Sodium 139 mmol/L (137-145)
[2023-07-25 13:29] LABS: Amphetamine Screen Urine Negative (Negative); Barbiturate Screen Urine Negative (Negative); Benzodiazepines Screen Urine Negative (Negative); Cannabinoid Screen Urine Positive (Negative); Cocaine Screen Urine Negative (Negative); Methadone Screen Urine Negative (Negative); Opiate Screen Urine Negative (Negative); Phencyclidine Screen Urine Negative (Negative)
[2023-07-25 13:31] LABS: Add Urine Microscopic? YES
[2023-07-25 13:48] VITALS: BP 166/101; PULSE 94; RESP 19; TEMP 36.3; O2SAT 98
[2023-07-25 14:06] VITALS: PULSE 69
[2023-07-25] MEDS: POTASSIUM CHLORIDE 20 MEQ ER TABLET 40 MEQ PO (15:19)
[2023-07-25] MEDS: POTASSIUM CHLORIDE 20 MEQ PACKET (FOR LIQUID) PO (15:20)
[2023-07-25 15:22] VITALS: BP 152/94; PULSE 98; RESP 19; O2SAT 98
--- NOTE | 2023-07-25 16:01 | ED.GENADULT ---
HPI - General Adult General Chief complaint: Alcohol Stated complaint: alcohol Time Seen by Provider: 07/25/23 12:30 Source: patient Mode of arrival: EMS Limitations: no limitations History of Present Illness HPI narrative: Patient is a 53-year-old male who presents the emergency department this afternoon due to alcohol intoxication. Patient states that he was trying to seek help regarding rehab facilities in called some crisis hotline here then sent EMS and police to his facility. Initial report states the patient may be suicidal, however, during initial triage and my assessment, patient has denied any suicidal or homicidal ideations. Patient states that he knows he has a history of alcohol abuse/alcohol use disorder and has been seeking help with quitting drinking a pad is concerned about alcohol withdrawals. Patient is currently denying any specific symptoms including any chest pain, shortness of breath, nausea, vomiting, abdominal pain, dysuria, hematuria, constipation, diarrhea, melena, hematochezia, fevers or chills. Patient also denies any headaches, dizziness, lightheadedness, blurry visions, focal weakness, numbness and or tingling. There are no other modifying, alleviating, or precipitating factors at this time. Related Data Allergies Allergy/AdvReac Type Severity Reaction Status Date / Time iohexol AdvReac Mild Nausea Verified 07/25/23 13:47 [From contrast - CT, X-RAY] Review of Systems Review of Systems: All systems are reviewed and are negative unless stated otherwise in the HPI. [facility] Past Medical History Medical History Alcohol abuse Tobacco abuse Surgical History Surgical History No history of previous surgery Family History Family History Mother Diabetes mellitus Social History Social History Social History: Surrogate medical decision maker: sally Burden. Code status: Full code. Smoking packs per day: 1.5 Smoking cigarettes per day: 30.0 Smoking status: Current every day smoker Tobacco type: cigarettes Alcohol intake: current Drinks per week: 63 Alcohol use details: Drinks a pint of fireball a day. Substance use: current Substance use type: marijuana Other substance usage details: smokes marijuana daily Lack of Transportation: No Lack of Food: Never True Current Housing: I Have Housing Concerned About Future Housing: No Difficulty Paying Gas/Electric Bills: No Difficulty Paying for Meds: No Currently Unemployed: YES Education: High School Diploma/GED Difficulty w/ Childcare or Family Care: No Additional living arrangements comments: Lives in [place] with sally. Additional occupation/education comments: Works in [employer] at [employer]. Spiritual care concerns: No Exam Narrative: General: Alert, awake, afebrile, in no acute distress, mildly intoxicated. HEENT: PERRL, no rhinorrhea, no post nasal drip, oropharynx clear. Neck: Trachea midline, no JVD, no lymphadenopathy. Cardiovascular: Regular rate and rhythm, no murmurs, rubs or gallops, no peripheral edema. Respiratory: Clear to auscultation bilaterally, no tachypnea, no wheezing, no rhonchi, no rubs, no respiratory distress. Abdomen: Soft, nontender, nondistended, no rebound, no guarding, no peritoneal signs. Musculoskeletal: No joint swelling or deformity, normal muscle tone. Skin: No rashes or petechia, no signs of infection. Psychiatric: Alert and oriented, normal behavior and judgment for situation, patient is mildly intoxicated, however, clinically sober. Neurological: Alert and oriented to person, place, and time. Follows all commands. No focal deficits, speech is clear and fluent. Course Vital Signs Vital signs: Vital Signs Tem[place]
[2023-07-25 16:50] VITALS: BP 150/89; PULSE 90; RESP 20; O2SAT 98
== END 2023-07-25 16:50 | disposition home or self-care (01) ==
PROVIDERS: Physician Assistant; Emergency Provider Emergency Medicine; PCP Physician Assistant
DX: F10.229 Alcohol dependence with intoxication, unspecified (principal); F10.239 Alcohol dependence with withdrawal, unspecified; Y90.8 Blood alcohol level of 240 mg/100 ml or more; E87.6 Hypokalemia; F17.210 Nicotine dependence, cigarettes, uncomplicated
CPT/HCPCS: 36415; 80053; 80307; 81001; 83735; 85025; 93005; 99284; A9270

== ENCOUNTER 2023-10-30 11:23 | Outpatient (CLI) | payer OTHER, SELFPAY ==
--- NOTE | ~2023-10-30 | XR_ITS ---
Left wrist Technique: PA, oblique, lateral, and ulnar deviation views were obtained. Clinical History: Pain Findings: No acute fracture or dislocation is seen. Osseous alignment is anatomic. Joint spaces are p reserved. Soft tissues are unremarkable. Impression: Unremarkable left wrist radiographs. Reviewed, dictated and finalized at location . Impression: Unremarkable left wrist radiographs.
== END 2023-10-30 11:24 | disposition home or self-care (01) ==
PROVIDERS: PCP Internal Medicine; Visit Provider Internal Medicine
DX: G56.02 Carpal tunnel syndrome, left upper limb (principal)
CPT/HCPCS: 73110

== ENCOUNTER 2023-11-03 20:37 | Emergency (ER) | payer OTHER, SELFPAY ==
[2023-11-03] VITALS (9 sets, daily range): BP systolic 101–143; BP diastolic 62–99; PULSE 68–87; RESP 15–19; TEMP 36.3–37.1; O2SAT 94–99
--- NOTE | ~2023-11-03 | XR_ITS ---
EXAMINATION: XR wrist LT 2V DATE: 11/03/2023 21:31 INDICATION: Left wrist pain TECHNIQUE: Posteroanterior and lateral views of the left wrist were obtained. COMPARISON: 10/30/2023 FINDINGS: Alignment is normal. No fracture. [Osteoarthritis at the triscaphe and first carpal metacarpal joints . No erosions. Soft tissues are unremarkable. IMPRESSION: 1. 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 No acute osseous abnormality. Reviewed, dictated and finalized at location A. IMPRESSION: 1. 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 No acute osseous abn ormality.
--- NOTE | 2023-11-03 20:44 | ECG_ITS ---
SEE SCANNED COPY FOR CONFIRMED REPORT MTDD
[2023-11-03 21:01] LABS: Basophils Absolute Auto 0.1 K/mm3 (0.0-0.1); Basophils Percent Auto 0.9 % (0.2-1.2); Eosinophils Absolute Auto 0.2 K/mm3 (0-0.3); Eosinophils Percent Auto 2.3 % (0-4.4); Hematocrit 43.7 % (42.0-52.0); Hemoglobin 15.2 g/dL (14.0-18.0); Immature Granulocyte Absolute 0.01 K/mm3 (0.00-0.031); Immature Granulocyte Percent A 0.1 % (0-0.5); Lymphocytes Absolute Auto 4.38 K/mm3 (0.9-3.2); Lymphocytes Percent Auto 62.9 % (18.3-44.2); Mean Corpuscular HGB Conc 34.8 g/dl (32-36); Mean Corpuscular Hemoglobin 34.4 pg (26-34); Mean Corpuscular Volume 98.9 fl (80-100); Mean Platelet Volume 10.1 fl (7.4-10.4); Monocytes Absolute Auto 0.7 K/mm3 (0.1-0.6); Monocytes Percent Auto 10.3 % (2.6-8.5); Neutrophils Absolute Auto 1.6 K/mm3 (1.3-6.7); Neutrophils Percent Auto 23.5 % (45.5-73.1); Platelet Count Result 283 k/mm3 (150-375); Red Blood Count 4.42 M/mm3 (4.6-6.20); Red Cell Distribution Width 14.5 % (11.5-14.5)
[2023-11-03 21:09] LABS: Alanine Aminotransferase 22 U/L (6-50); Albumin Level 4.5 g/dL (3.5-5.1); Alkaline Phosphatase 95 U/L (38-126); Anion Gap 12 mmol/L (4-12); Aspartate Amino Transferase 30 U/L (17-59); Bilirubin,Total 0.4 mg/dL (0.2-1.3); Blood Urea Nitrogen 6 mg/dL (9-20); Calcium 8.8 mg/dL (8.4-10.2); Carbon Dioxide 27 mmol/L (22-30); Chloride 109 mmol/L (98-107); Estimated Glomerular Filt Rate > 60; Glucose 131 mg/dL (65-110); Potassium 2.9 mmol/L (3.4-5.0); Sodium 148 mmol/L (137-145)
--- NOTE | 2023-11-03 21:13 | PC.NURSE ---
Upon entering the ED patient was verbally aggressive to EMS, PD, security, and nursing staff. Patient has been going back and forth about who he wants to talk to and will state aggressively to others I'm not talking to you . Per EMS and PD patient also told the residency program coordinator to shoot me when they arrived the scene. Patient repeatedly states he just wants to and hints towards his life being rough.
[2023-11-03 21:23] LABS: Appearance Urine Clear (Clear); Bilirubin Urine Negative (Negative); Blood Urine Negative (Negative); Color Urine Yellow (Yellow); Glucose Urine UA Negative (Negative); Ketones Urine Negative (Negative); Leukocyte Esterase Ur Negative LEU/UL (Negative); Nitrate Urine Negative (Negative); Protein Urine Negative (Negative); Urobilinogen Urine 0.2 mg/dL (<2.0)
[2023-11-03 21:24] LABS: Acetaminophen < 10 ug/mL (10-30); Salicylate < 1.0 mg/dL (2-20)
[2023-11-03 21:25] LABS: Add Urine Microscopic? NO
[2023-11-03 21:25] LABS: Ethanol 382 mg/dL (<10)
[2023-11-03 21:34] LABS: Influenza A QL RT-PCR Negative (Negative); Influenza B QL RT-PCR Negative (Negative); RSV RNA, RT-PCR Negative (Negative); SARS-CoV-2 RNA PCR Negative (Negative)
[2023-11-03] MEDS: diphenhydrAMINE HCl INJ 50 MG/ML VIAL IM (21:35)
[2023-11-03] MEDS: HALOPERIDOL LACTATE 5 MG/ML VIAL IM (21:35)
[2023-11-03 21:38] LABS: Amphetamine Screen Urine Negative (Negative); Barbiturate Screen Urine Negative (Negative); Benzodiazepines Screen Urine Negative (Negative); Cannabinoid Screen Urine Positive (Negative); Cocaine Screen Urine Negative (Negative); Methadone Screen Urine Negative (Negative); Opiate Screen Urine Negative (Negative); Phencyclidine Screen Urine Negative (Negative)
--- NOTE | 2023-11-03 22:02 | ED.PSYCH ---
HPI - Psych General Chief Complaint: Psychiatric Symptoms <Maggie Weiss MD - Last Filed: 11/04/23 04:53> Stated Complaint: ALCOHOL USE <Maggie Weiss MD - Last Filed: 11/04/23 04:53> Time Seen by Provider: 11/03/23 21:21 <Maggie Weiss MD - Last Filed: 11/04/23 04:53> History of Present Illness HPI Narrative: Patient presents here after reported drinking too much alcohol and making suicidal statements. States he doesn't want to be here; reports some L wrist pain without memory if he injured it <Maggie Weiss MD - Last Filed: 11/04/23 04:53> Related Data Allergies/Adverse Reactions: Allergies Allergy/AdvReac Type Severity Reaction Status Date / Time iohexol AdvReac Mild Nausea Verified 07/25/23 13:47 [From contrast - CT, X-RAY] <Maggie Weiss MD - Last Filed: 11/04/23 04:53> Review of Systems Review of Systems: All systems reviewed & are unremarkable except as noted in HPI and below <Maggie Weiss MD - Last Filed: 11/04/23 04:53> PMFSH Past Medical History Medical History: Medical History Alcohol abuse Tobacco abuse <Maggie Weiss MD - Last Filed: 11/04/23 04:53> Surgical History Surgical History: Surgical History No history of previous surgery <Maggie Weiss MD - Last Filed: 11/04/23 04:53> Family History Family History: Family History Mother Diabetes mellitus <Maggie Weiss MD - Last Filed: 11/04/23 04:53> Social History Social History: Social History Social History: Surrogate medical decision maker: sally Burden. Code status: Full code. Smoking packs per day: 1.5 Smoking cigarettes per day: 30.0 Smoking status: Current every day smoker Tobacco type: cigarettes Alcohol intake: current Drinks per week: 63 Alcohol use details: Drinks a pint of fireball a day. Substance use: current Substance use type: marijuana Other substance usage details: smokes marijuana daily Lack of Transportation: No Lack of Food: Never True Current Housing: I Have Housing Concerned About Future Housing: No Difficulty Paying Gas/Electric Bills: No Difficulty Paying for Meds: No Currently Unemployed: YES Education: High School Diploma/GED Difficulty w/ Childcare or Family Care: No Additional living arrangements comments: Lives in [place] with sally. Additional occupation/education comments: Works in [employer] at [employer]. Spiritual care concerns: No <Maggie Weiss MD - Last Filed: 11/04/23 04:53> Exam Narrative: EXAMINATION OF ORGAN SYSTEMS/BODY AREAS: Constitutional: Vital signs per nursing GENERAL:Appears intoxicated HEAD: Normal with no signs of head trauma. EYES: EOMI, conjunctiva normal ENT: Hearing grossly intact LUNGS: Nonlabored breathing. HEART: [Regular rate and rhythm] ABD: No distension EXT: Normal range of motion SKIN: [No rashes or lesions.] NEURO: [Alert. No gross focal sensory or strength deficits.] Moving all extremities; appears intoxicated PSYCH: Belligerent <Maggie Weiss MD - Last Filed: 11/04/23 04:53> Course Vital Signs Vital signs: Vital Signs Temperature 97.4 F L 11/03/23 21:12 Pulse Rate 82 11/03/23 21:12 Respiratory Rate 18 11/03/23 21:12 Blood Pressure 143/99 H 11/03/23 21:12 Pulse Oximetry 99 11/03/23 21:12 Temperature 98.3 F 11/04/23 13:05 Pulse Rate 81 11/04/23 13:05 Respiratory Rate 18 11/04/23 13:05 Blood Pressure 142/77 H 11/04/23 13:05 Pulse Oximetry 100 11/04/23 13:05 <Maggie Weiss MD - Last Filed: 11/04/23 04:53> Vital Signs Temperature 97.4 F L 11/03/23 21:12 Pulse Rate 82 11/03/23 21:12 Respiratory Rate 18 11/03/23 21:12 Blood Pressure 143/99 H 11/03/23 21:12 Pulse O
[2023-11-04 00:35] VITALS: BP 129/70; PULSE 75; RESP 16; TEMP 36.6; O2SAT 100
[2023-11-04] MEDS: POTASSIUM CHLORIDE 20 MEQ ER TABLET 40 MEQ PO (04:24)
--- NOTE | 2023-11-04 07:27 | PC.NURSE ---
Patient resting at this time. Breathing even and non labored. sitter at bedside.
[2023-11-04 09:02] VITALS: BP 137/81; PULSE 74; RESP 18; O2SAT 96
[2023-11-04 10:27] LABS: Ethanol 102 mg/dL (<10)
--- NOTE | 2023-11-04 12:32 | PC.NURSE ---
Dahlia from crisis at bedside to evaluate patient
[2023-11-04 13:05] VITALS: BP 142/77; PULSE 81; RESP 18; TEMP 36.8; O2SAT 100
== END 2023-11-04 13:25 | disposition home or self-care (01) ==
PROVIDERS: Emergency Medicine; Emergency Provider Emergency Medicine; PCP Internal Medicine
DX: F10.129 Alcohol abuse with intoxication, unspecified (principal); Y90.8 Blood alcohol level of 240 mg/100 ml or more; M25.532 Pain in left wrist; Z11.52 Encounter for screening for COVID-19; F17.210 Nicotine dependence, cigarettes, uncomplicated
CPT/HCPCS: 36415; 73100; 80053; 80307; 81003; 84443; 85025; 87637; 93005; 96372; 99284; A9270; J1200; J1630

== ENCOUNTER 2023-11-21 14:49 | Inpatient (IN) | payer OTHER, SELFPAY ==
[2023-11-21] VITALS (13 sets, daily range): BP systolic 129–160; BP diastolic 81–98; PULSE 82–119; RESP 16–20; TEMP 36.5–37.7; O2SAT 96–100; BMI 18.1
--- NOTE | ~2023-11-21 | US_ITS ---
EXAMINATION: US abdomen limited DATE: 11/22/2023 08:47 INDICATION: Elevated liver function tests. Liver lesion. TECHNIQUE: Multiple grayscale and Doppler ultrasound images of the abdomen were obtained. COMPARISON: Abdomen MRI dated 12/08/2022 and ultrasound dated 12/07/2022 FINDINGS: The pancreatic head and body are normal in appearance. The pancreatic tail is not visualized. The vi sualized proximal to mid inferior vena cava is normal. Liver has normal echogenicity and contour, wit h a smooth surface. A couple of the larger anechoic cystic lesions are seen in the liver, the largest measuring up to 1.2 cm. The majority the remaining tiny cystic-appearing lesion is seen scattered th roughout the liver on prior MRI are likely too small to be discernible by ultrasound No intrahepatic biliary duct dilation suspected. Portal venous flow was seen in the hepatopetal, normal direction and has normal Doppler waveform. The gallbladder is normal in appearance. There is no cholelithiasis. T he common bile duct measures 2-3 mm, which is normal. Sonographic [place] sign was reported as negativ e by the groundman. IMPRESSION: 1. No significant change in a couple of the larger (measuring up to 1.2 cm) of innumerable small cyst ic lesions seen scattered throughout the liver on prior MRI the majority too small to be discerned by ultrasound. Differential would include simple hepatic cysts or biliary hamartomas as in the setting of Von [place] complex. Reviewed, dictated and finalized at location A. IMPRESSION: 1. No significant change in a couple of the larger (measuring up to 1.2 cm) of innumerable small cystic lesions seen scattered throughout the liver on prior M RI the majority too small to be discerned by ultrasound. Differential would inc lude simple hepatic cysts or biliary hamartomas as in the setting of [place] urg complex.
--- NOTE | ~2023-11-21 | XR_ITS ---
EXAMINATION: XR chest 1V portable Exam Date/Time: 11/21/2023 17:09 CDT HISTORY: CP, NAUSEAS, WEAKNESS Comparison: None. RESULT: Lines, tubes, and devices: None. Lungs and pleura: Clear. Cardiomediastinal silhouette: Normal. Other: No acute osseous or upper abdominal finding. IMPRESSION: No acute cardiopulmonary process. Reviewed, dictated and finalized at location K.
--- NOTE | 2023-11-21 15:08 | ECG_ITS ---
Test Date: 2023-11-21 15:17:56 Measurements Intervals [place] Rate: 121 P: 76 [place]: 135 QRS: -85 QRSD: 98 T: 78 QT: 423 QTc: 601 Interpretive Statements SINUS TACHYCARDIA LEFT ANTERIOR FASCICULAR BLOCK [QRS AXIS <= -45, QR IN I, RS IN II] MODERATE ST DEPRESSION [0.05+ mV ST DEPRESSION] No previous ECG available for comparison Electronically Signed On 11-21-2023 16:05:14 CDT by Asher Preston M.D.
--- NOTE | 2023-11-21 15:08 | ED.ALCOHOL ---
HPI - Alcohol General Chief Complaint: Alcohol <Janet Ambriz PA-C - Last Filed: 11/23/23 18:10> Stated Complaint: depression, ETOH <Janet Ambriz PA-C - Last Filed: 11/23/23 18:10> Time Seen by Provider: 11/21/23 15:06 <Janet Ambriz PA-C - Last Filed: 11/23/23 18:10> Focused HPI: Patient presents to the emergency department via EMS due to alcohol intoxication. Patient reports he was sitting behind a gas station. He was concerned he may harm himself or someone else so called EMS. He reports some throat discomfort. GENERAL: Disheveled, thin, and in no acute distress. HEAD: Normocephalic, atraumatic. CHEST: Clear to auscultation. ?No respiratory distress. HEART: Regular rate and rhythm.? NEURO: ?Alert and oriented x3. Patient screened in triage and initial orders placed.? ?Additional care and disposition to be based upon?diagnostic testing and treatment. <Janet Ambriz PA-C - Last Filed: 11/23/23 18:10> History of Present Illness HPI narrative: 53-year-old male history of alcohol abuse presenting the emergency department for evaluation for concern for alcohol withdrawal. Patient states that he quit drinking approximately 3 days ago and then started drinking again today (three shots of fireball). Patient does report history of alcohol withdrawal seizures. <Mina Carter MD - Last Filed: 11/21/23 21:13> Related Data Home Medications: Home Medications Medication Instructions Recorded Confirmed No Home Medications 11/21/23 11/21/23 <Janet Ambriz PA-C - Last Filed: 11/23/23 18:10> Allergies/Adverse Reactions: Allergies Allergy/AdvReac Type Severity Reaction Status Date / Time iohexol AdvReac Mild Nausea Verified 11/23/23 11:58 [From contrast - CT, X-RAY] <Janet Ambriz PA-C - Last Filed: 11/23/23 18:10> Review of Systems Review of Systems: All systems reviewed & are unremarkable except as noted in HPI and below <Mina Carter MD - Last Filed: 11/21/23 21:13> [facility] Past Medical History Medical History: Medical History Alcohol abuse Tobacco abuse <Janet Ambriz PA-C - Last Filed: 11/23/23 18:10> Surgical History Surgical History: Surgical History No history of previous surgery <Janet Ambriz PA-C - Last Filed: 11/23/23 18:10> Family History Family History: Family History Mother Diabetes mellitus <Janet Ambriz PA-C - Last Filed: 11/23/23 18:10> Social History Social History: Social History Social History: Surrogate medical decision maker: sally Burden. Code status: Full code. Smoking packs per day: 1 Smoking cigarettes per day: 20.0 Years smoked: 40 Smoking pack-years: 40.00 Smoking status: Current every day smoker Tobacco type: cigarettes Alcohol intake: current Drinks per week: 28 Alcohol use details: Drinks a pint of fireball a day. Substance use: current Substance use type: marijuana Other substance usage details: smokes marijuana daily Do You Feel Safe in your Home?: Yes Lack of Transportation: YES Lack of Food: Sometimes True Current Housing: I Have Housing Concerned About Future Housing: YES Difficulty Paying Gas/Electric Bills: No Difficulty Paying for Meds: No Currently Unemployed: YES Education: Grade School Difficulty w/ Childcare or Family Care: No Additional living arrangements comments: Lives in [place] with sally. 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 Spiritual care concerns: No <Janet Ambriz PA-C - Last Filed: 11/23/23 18:10> Exam Narrative: APPEARANCE: Well appearing, no pain, no distress, well-nourished. HEAD: normocephalic, atraumat
--- NOTE | 2023-11-21 15:33 | ED.ALCOHOL ---
HPI - Alcohol General Chief Complaint: Alcohol Stated Complaint: depression, ETOH Time Seen by Provider: 11/21/23 15:06 History of Present Illness HPI narrative: 53-year-old male presenting to the emergency department for evaluation increased anxiety and alcohol withdrawal. Patient reports his left him today and patient had increased anxiety from this. Patient reports a does have history alcohol abuse and alcohol withdrawal. Patient states he quit drinking about 3 days ago but started drinking again today and had a few shots of fireball today. Patient does have prior history of alcohol withdrawal seizures. Patient also reports a prior history of upper GI bleed. Patient denies any prior history esophageal varices. Related Data Home Medications Medication Instructions Recorded Confirmed No Home Medications 11/21/23 11/21/23 Allergies Allergy/AdvReac Type Severity Reaction Status Date / Time iohexol AdvReac Mild Nausea Verified 07/25/23 13:47 [From contrast - CT, X-RAY] Review of Systems Review of Systems: All systems reviewed & are unremarkable except as noted in HPI and below PMFSH Past Medical History Medical History Alcohol abuse Tobacco abuse Surgical History Surgical History No history of previous surgery Family History Family History Mother Diabetes mellitus Social History Social History Social History: Surrogate medical decision maker: sally Burden. Code status: Full code. Smoking packs per day: 1 Smoking cigarettes per day: 20.0 Years smoked: 40 Smoking pack-years: 40.00 Smoking status: Current every day smoker Tobacco type: cigarettes Alcohol intake: current Drinks per week: 28 Alcohol use details: Drinks a pint of fireball a day. Substance use: current Substance use type: marijuana Other substance usage details: smokes marijuana daily Do You Feel Safe in your Home?: Yes Lack of Transportation: YES Lack of Food: Sometimes True Current Housing: I Have Housing Concerned About Future Housing: YES Difficulty Paying Gas/Electric Bills: No Difficulty Paying for Meds: No Currently Unemployed: YES Education: Grade School Difficulty w/ Childcare or Family Care: No Additional living arrangements comments: Lives in [place] with sally. 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 Spiritual care concerns: No Exam Narrative: APPEARANCE: Well appearing, no pain, no distress, well-nourished. HEAD: normocephalic, atraumatic. EYES: PERRLA/EOMI, conjunctivae clear. NOSE: Normal no drainage EARS:TMS clear with good light reflex. THROAT: Pharynx clear, no exudate. NECK: Supple. No adenopathy, no masses. RESPIRATORY: Airway patent, respirations nonlabored. Clear to auscultation bilaterally, no rales, rhonchi, wheezing. CARDIOVASCULAR: Regular rate and rhythm without murmurs rubs or gallops. ABDOMINAL: Soft, nontender, nondistended, normal bowel sounds Rectal: Hemoccult negative on digital rectal exam MUSCULOSKELETAL: Moves all extremities. Strength/ROM intact, No edema, No calf tenderness. NEURO: Alert. Cranial nerves II through XII intact. Good gait. Good coordination SKIN: Warm, dry. Normal Color Course Course Emergency Course: patient was admitted to the hospitalist with GI consult Vital Signs Vital signs: Vital Signs Temperature 97.7 F 11/21/23 14:58 Pulse Rate 119 H 11/21/23 14:58 Respiratory Rate 17 11/21/23 14:58 Blood Pressure 148/97 H 11/21/23 14:58 Pulse Oximetry 99 11/21/23 14:58 Oxygen Delivery Room Air 11/21/23 14:58 Temperature 99.3 F 11/21/23 19:51 Pulse Rate 111 H 11/21/23 19:55 Respiratory Rate 18 11/21/23
[2023-11-21 15:37] LABS: Basophils Percent Auto 0.2 % (0.2-1.2); Eosinophils Percent Auto 0.2 % (0-4.4); Hematocrit 49.7 % (42.0-52.0); Hemoglobin 17.3 g/dL (14.0-18.0); Immature Granulocyte Absolute 0.08 K/mm3 (0.00-0.031); Immature Granulocyte Percent A 0.6 % (0-0.5); Lymphocytes Absolute Auto 0.69 K/mm3 (0.9-3.2); Lymphocytes Percent Auto 4.8 % (18.3-44.2); Mean Corpuscular HGB Conc 34.8 g/dl (32-36); Mean Corpuscular Hemoglobin 34.3 pg (26-34); Mean Corpuscular Volume 98.4 fl (80-100); Mean Platelet Volume 10.2 fl (7.4-10.4); Monocytes Absolute Auto 1.5 K/mm3 (0.1-0.6); Monocytes Percent Auto 10.4 % (2.6-8.5); Neutrophils Absolute Auto 12.1 K/mm3 (1.3-6.7); Neutrophils Percent Auto 83.8 % (45.5-73.1); Nucleated Red Blood Cells Perc 0.1 % (0.0-0.2); Platelet Count Result 206 k/mm3 (150-375); Red Blood Count 5.05 M/mm3 (4.6-6.20); Red Cell Distribution Width 15.9 % (11.5-14.5); White Blood Count 14.4 K/mm3 (4.5-10.0)
--- NOTE | 2023-11-21 15:40 | PC.NURSE ---
Pt attempted to provide urine sample and was unsuccessful
[2023-11-21 15:49] LABS: INR 1.1; Prothrombin Time 14.3 Seconds (11.1-14.7)
[2023-11-21 15:50] LABS: Partial Thromboplastin Time 32.4 Seconds (22.3-36.8)
[2023-11-21 15:57] LABS: Albumin Level 5.1 g/dL (3.5-5.1); Alkaline Phosphatase 151 U/L (38-126); Anion Gap 27 mmol/L (4-12); Aspartate Amino Transferase 35 U/L (17-59); Bilirubin,Total 2.3 mg/dL (0.2-1.3); Blood Urea Nitrogen 18 mg/dL (9-20); Calcium 9.6 mg/dL (8.4-10.2); Carbon Dioxide 29 mmol/L (22-30); Chloride 83 mmol/L (98-107); Estimated CRCL calculation 40 ml/min; Estimated Glomerular Filt Rate 45; Glucose 357 mg/dL (65-110); Potassium 2.2 mmol/L (3.4-5.0); Sodium 139 mmol/L (137-145)
[2023-11-21 16:00] LABS: Ethanol 283 mg/dL (<10)
[2023-11-21] MEDS: THIAMINE HCL 200 MG/2 ML VIAL 100 MG IV PUSH (16:00)
[2023-11-21] MEDS: LORazepam INJ (*CRX) 2 MG/ML VIAL 1 MG IV PUSH (16:03)
[2023-11-21] MEDS: ONDANSETRON INJ 4 MG/2 ML VIAL IV PUSH (16:03)
[2023-11-21] MEDS: SODIUM CHLORIDE 0.9% IV 1,000 ML 999 ML IV CONT ×2 (16:03→16:24)
[2023-11-21] MEDS: POTASSIUM CHLORIDE 20 MEQ PACKET (FOR LIQUID) 40 MEQ PO (16:04)
--- NOTE | 2023-11-21 16:10 | PC.NURSE ---
Pt attempted to provide urine sample and was unsuccessful
[2023-11-21 16:11] LABS: Alanine Aminotransferase 22 U/L (6-50)
[2023-11-21] MEDS: KCL 20 MEQ/SW 100 ML 100 ML 50 MEQ IVPB (16:20)
[2023-11-21 16:50] LABS: Troponin I < 0.012 ng/mL (0.000-0.034)
[2023-11-21] MEDS: PANTOPRAZOLE SODIUM IV 40 MG VIAL IV PUSH (16:55)
[2023-11-21 17:22] LABS: Gastric Negative Control Negative; Gastric Positive Control Positive; Occult Blood Gastric Fluid Positive; pH Gastric Fluid 4 (1-8)
[2023-11-21 18:01] LABS: Appearance Urine Cloudy (Clear); Bacteria Urine None Seen /hpf; Bilirubin Urine Negative (Negative); Blood Urine 2+ (Negative); Color Urine Dark Yellow (Yellow); Glucose Urine UA Trace mg/dL (Negative); Ketones Urine Trace mg/dL (Negative); Leukocyte Esterase Ur Trace LEU/UL (Negative); Mucus Urine Present /lpf; Need Manual Microscopic Reviewed; Nitrate Urine Negative (Negative); Non Pathogenic Casts >20; Protein Urine 2+ mg/dL (Negative); Specific Grav Ur 1.029 (1.001-1.035); Squamous Epithelial Cell Urine Occasional /hpf (Few); WBC Urine 0-5 /hpf (0-3)
[2023-11-21 18:02] LABS: Add Urine Microscopic? YES; Amphetamine Screen Urine Negative (Negative); Barbiturate Screen Urine Negative (Negative); Benzodiazepines Screen Urine Negative (Negative); Cannabinoid Screen Urine Positive (Negative); Cocaine Screen Urine Negative (Negative); Methadone Screen Urine Negative (Negative); Opiate Screen Urine Negative (Negative); Phencyclidine Screen Urine Negative (Negative)
[2023-11-21 18:32] LABS: Magnesium 2.3 mg/dL (1.6-2.3); Phosphorus 1.7 mg/dL (2.5-4.5)
[2023-11-21] MEDS: SODIUM CHLORIDE 0.9% IV 1,000 ML 125 ML IV CONT (19:11)
--- NOTE | 2023-11-21 19:39 | ADMGEN ---
This patient, Corey Johnson, was admitted to IMU Room 200-01 at 1850. Patient/family oriented to hospital policies and general routines including ID bracelet, bed and alarms, visiting hours, pain management, procedures, bathroom and other care routines, personal items, smoking policy, room service/diet, and visiting hours. Information on how to activate the Rapid Response Team has been discussed. Patient/Family are encouraged to report perceived risks to care and to ask questions if they do not understand what they are told or what they should do.
--- NOTE | 2023-11-21 21:18 | PM.IMHP ---
H&P: HPI History of Present Illness Date/Time: 11/21/23 21:18 Chief Complaint: Coughed blood Narrative: Patient is a 53-year-old who was brought to the emergency department by the EMS due to alcohol intoxication. Patient reports sitting behind the gas station and he was concerned he was going to harm himself. He reports some sore throat and some chest discomfort denied any fever chills nausea vomiting diarrhea. Also complains that he coughed up some sputum which was blood-tingede left him and he is very anxious he also states that he quit drinking about 3 days ago but then started drinking again after his personal situation changed. Previous history of alcohol use and withdrawal symptoms in the past also reported previous history of upper GI bleed and prior history denies of any portal hypertension or any esophageal versus bleed. No history of any hemoptysis in the past no chest pains no nausea no vomiting no diarrhea no dizziness no head injuries or loss of consciousness Review of Systems Review of Systems: All systems reviewed & are unremarkable except as noted in HPI and below PMFSH Past Medical History Medical History Alcohol abuse Tobacco abuse Surgical History Surgical History No history of previous surgery Family History Family History Mother Diabetes mellitus Social History Social History Social History: Surrogate medical decision maker: sally Burden. Code status: Full code. Smoking packs per day: 1 Smoking cigarettes per day: 20.0 Years smoked: 40 Smoking pack-years: 40.00 Smoking status: Current every day smoker Tobacco type: cigarettes Alcohol intake: current Drinks per week: 28 Alcohol use details: Drinks a pint of fireball a day. Substance use: current Substance use type: marijuana Other substance usage details: smokes marijuana daily Do You Feel Safe in your Home?: Yes Lack of Transportation: YES Lack of Food: Sometimes True Current Housing: I Have Housing Concerned About Future Housing: YES Difficulty Paying Gas/Electric Bills: No Difficulty Paying for Meds: No Currently Unemployed: YES Education: Grade School Difficulty w/ Childcare or Family Care: No Additional living arrangements comments: Lives in [place] with sally. 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 Spiritual care concerns: No Meds Home Medications and Allergies Home Medications Medication Instructions Recorded Confirmed Type No Home Medications 11/21/23 11/21/23 History Allergies Allergy/AdvReac Type Severity Reaction Status Date / Time iohexol AdvReac Mild Nausea Verified 07/25/23 13:47 [From contrast - CT, X-RAY] Vital Signs Vital Signs - 24 hr 11/21/23 14:58 11/21/23 15:26 11/21/23 15:46 Temperature 36.5 C Pulse Rate 119 H 117 H 101 H Respiratory Rate 17 20 17 Blood Pressure 148/97 H 156/96 H 129/86 Pulse Oximetry 99 98 99 Oxygen Delivery Room Air 11/21/23 17:00 11/21/23 17:16 11/21/23 18:37 Temperature Pulse Rate 101 H 111 H Respiratory Rate 17 20 Blood Pressure 145/98 H 145/91 H Pulse Oximetry 100 99 Oxygen Delivery 11/21/23 18:50 11/21/23 19:51 11/21/23 18:50 Temperature 37.7 C H 37.4 C 37.7 C H Pulse Rate 104 H 112 H 104 H Respiratory Rate 16 18 16 Blood Pressure 160/81 H 151/87 H 160/81 H Pulse Oximetry 99 96 99 Oxygen Delivery 11/21/23 19:55 Temperature Pulse Rate 111 H Respiratory Rate Blood Pressure Pulse Oximetry Oxygen Delivery Exam Narrative: GENERAL: Well appearing, no acute distress. HEAD: Normocephalic, atraumatic. NECK: Supple. No adenopathy, no masses. RESPIRATORY: respirations nonlabored. , no rales,
[2023-11-21 22:01] LABS: Hematocrit 41.5 % (42.0-52.0); Hemoglobin 14.6 g/dL (14.0-18.0)
[2023-11-21 22:11] LABS: Alanine Aminotransferase 12 U/L (6-50); Albumin Level 3.7 g/dL (3.5-5.1); Alkaline Phosphatase 111 U/L (38-126); Anion Gap 9 mmol/L (4-12); Aspartate Amino Transferase 26 U/L (17-59); Bilirubin,Total 1.5 mg/dL (0.2-1.3); Blood Urea Nitrogen 14 mg/dL (9-20); Calcium 8.3 mg/dL (8.4-10.2); Carbon Dioxide 34 mmol/L (22-30); Chloride 98 mmol/L (98-107); Estimated CRCL calculation 52 ml/min; Estimated Glomerular Filt Rate > 60; Glucose 100 mg/dL (65-110); Potassium 2.9 mmol/L (3.4-5.0); Sodium 141 mmol/L (137-145)
[2023-11-21] MEDS: POTASSIUM CHLORIDE INJ 40 MEQ in SODIUM CHLORIDE 0.9% IV 500 ML 130 MEQ IVPB (23:24)
[2023-11-22] VITALS (17 sets, daily range): BP systolic 148–166; BP diastolic 77–98; PULSE 64–100; RESP 16–20; TEMP 36.1–37.1; O2SAT 99–100; BMI 18.8
--- NOTE | 2023-11-22 08:26 | P.CONGI_ITS ---
I, Frankie Palencia MD, have provided a substantive portion of the care of this patient and discussed the patient with my Nurse Practitioner. I have reviewed any new relevant radiographic and laboratory results including medications. I agree with her documentation as noted below.?I personally performed the medical decision making and much of the history and exam for this encounter. briefly, he is an alcoholic who came here after intractable nausea and vomiting, noted dark emesis but no sarmad blood. He had EGD last year that showed esophagitis with gastritis, no varices. Here with dehydration, also alcoholic withdrawal, evelin with creat 1.6, bili 2. Given fluids, protonix, thiamine and ciwa protocol, hgb 15, occult blood in emesis +. He still has nausea. Plan is EGD in am, supportive medication, manage withdrawal, correct hypokalemia. Assessment and Plan Assessment and plan (1) Acute upper GI bleed: Code(s): K92.2 - Gastrointestinal hemorrhage, unspecified Status: Acute Assessment and Plan: Concern for upper GI bleed H&H is currently stable Monitor H and H, transfuse if needed See above (2) Hematemesis: Qualifiers: Nausea presence: with nausea Qualified Code(s): K92.0 - Hematemesis Code(s): K92.0 - Hematemesis Status: Acute Assessment and Plan: Several days of postprandial nausea and vomiting with bright red blood per patient, gastric occult was positive this admission. He does have a history of reflux esophagitis with contact bleeding, severe gastritis and duodenitis noted on EGD in 2022 -EGD to be arranged, NPO after midnight -continue pantoprazole IV b.i.d. (3) Epigastric abdominal pain: Code(s): R10.13 - Epigastric pain Status: Acute (4) Dysphagia: Code(s): R13.10 - Dysphagia, unspecified Status: Acute Assessment and Plan: -He has dysphagia to both liquids and solids and ?air?. He does have a history of a distal esophageal stricture in 2022. Likely recurrent stricture EGD again tomorrow (5) Elevated liver enzymes: Code(s): R74.8 - Abnormal levels of other serum enzymes Status: Acute Assessment and Plan: Likely due to chronic ETOH use and probably underlying AFLD. No signs of c irrhosis on labs Abd US to be arranged Liver work up labs to assess for any chronic liver disease (6) Alcohol abuse: Code(s): F10.10 - Alcohol abuse, uncomplicated Status: Acute Assessment and Plan: Monitor s/s of alcohol withdrawal Alcohol absence highly encouraged (7) N&V (nausea and vomiting): Code(s): R11.2 - Nausea with vomiting, unspecified Status: Acute Assessment and Plan: Likely due to acid bile, gastritis and alcohol intake EGD tomorrow (8) Alcohol abuse: Code(s): F10.10 - Alcohol abuse, uncomplicated Status: Acute (9) Abnormal ultrasound of liver: Code(s): R93.2 - Abnormal findings on diagnostic imaging of liver and biliary tract Status: Acute Assessment and Plan: Hx of numerable liver lesions on MRI in 2022, no concerning features Repeat abd US (10) Tobacco abuse: Code(s): Z72.0 - Tobacco use Status: Acute (11) Hypokalemia: Code(s): E87.6 - Hypokalemia Status: Acute Assessment and Plan: Replace per hospitalist. GI Consult Note Consult date/time: 11/22/23 08:00 Reason for consult: GI bleed HPI: Corey Johnson is a 53 year old male asked to be seen at the request of [facility] ER physician. He
--- NOTE | 2023-11-22 08:26 | WPDGICN ---
Assessment and Plan Assessment and plan (1) Acute upper GI bleed: Code(s): K92.2 - Gastrointestinal hemorrhage, unspecified Status: Acute Assessment and Plan: Concern for upper GI bleed H&H is currently stable Monitor H and H, transfuse if needed See above (2) Hematemesis: Qualifiers: Nausea presence: with nausea Qualified Code(s): K92.0 - Hematemesis Code(s): K92.0 - Hematemesis Status: Acute Assessment and Plan: Several days of postprandial nausea and vomiting with bright red blood per patient, gastric occult was positive this admission. He does have a history of reflux esophagitis with contact bleeding, severe gastritis and duodenitis noted on EGD in 2022 -EGD to be arranged, NPO after midnight -continue pantoprazole IV b.i.d. (3) Epigastric abdominal pain: Code(s): R10.13 - Epigastric pain Status: Acute (4) Dysphagia: Code(s): R13.10 - Dysphagia, unspecified Status: Acute Assessment and Plan: -He has dysphagia to both liquids and solids and ?air?. He does have a history of a distal esophageal stricture in 2022. Likely recurrent stricture EGD again tomorrow (5) Elevated liver enzymes: Code(s): R74.8 - Abnormal levels of other serum enzymes Status: Acute Assessment and Plan: Likely due to chronic ETOH use and probably underlying AFLD. No signs of cirrhosis on labs Abd US to be arranged Liver work up labs to assess for any chronic liver disease (6) Alcohol abuse: Code(s): F10.10 - Alcohol abuse, uncomplicated Status: Acute Assessment and Plan: Monitor s/s of alcohol withdrawal Alcohol absence highly encouraged (7) N&V (nausea and vomiting): Code(s): R11.2 - Nausea with vomiting, unspecified Status: Acute Assessment and Plan: Likely due to acid bile, gastritis and alcohol intake EGD tomorrow (8) Alcohol abuse: Code(s): F10.10 - Alcohol abuse, uncomplicated Status: Acute (9) Abnormal ultrasound of liver: Code(s): R93.2 - Abnormal findings on diagnostic imaging of liver and biliary tract Status: Acute Assessment and Plan: Hx of numerable liver lesions on MRI in 2022, no concerning features Repeat abd US (10) Tobacco abuse: Code(s): Z72.0 - Tobacco use Status: Acute (11) Hypokalemia: Code(s): E87.6 - Hypokalemia Status: Acute Assessment and Plan: Replace per hospitalist. GI Consult Note Consult date/time: 11/22/23 08:00 Reason for consult: GI bleed HPI: Corey Johnson is a 53 year old male asked to be seen at the request of [facility] ER physician. He has a past medical history of chronic alcohol abuse and tobacco abuse along with reflux esophagitis, severe gastritis, esophageal stricture and duodenitis. He presented to [facility] ER yesterday after he states he has had 2 days of postprandial vomiting that contained bright red blood. He states any time he would eat or drink something he would immediately vomit. He also states he saw a black stool several days ago but has not had a bowel movement since. He reports epigastric abdominal pain that he describes as burning that is intermittent but usually postprandial that will radiate up into his chest at times. He reports dysphagia to liquids, solid and ?air?. He drinks around 4 shots of fireball per night and states he had stopped but recently restarted day prior to admission. He states he has lost 10 lb unintentionally in the last couple weeks. Denies any change in bowel habits, hematochezia. He denies any history of cirrhosis of liver. Denies any family history of chronic liver diseases. He denies any NSAID use. He states he is not good about taking medications unless he is reminded so has not been taking anything at home medication hopkins. Had EGD in [address] Smith. Denies ever having colonoscopy. This Admission: Gastric Occ
[2023-11-22] MEDS: POTASSIUM CHLORIDE 20 MEQ PACKET (FOR LIQUID) 40 MEQ PO (08:54)
[2023-11-22] MEDS: PANTOPRAZOLE SODIUM IV 40 MG VIAL IV PUSH ×2 (08:54→18:32)
[2023-11-22] MEDS: MAGNESIUM OXIDE 400 MG TABLET PO ×3 (08:54→18:32)
[2023-11-22 08:57] LABS: Hematocrit 44.6 % (42.0-52.0); Hemoglobin 15.1 g/dL (14.0-18.0); Mean Corpuscular HGB Conc 33.9 g/dl (32-36); Mean Corpuscular Hemoglobin 34.1 pg (26-34); Mean Corpuscular Volume 100.7 fl (80-100); Mean Platelet Volume 10.3 fl (7.4-10.4); Platelet Count Result 156 k/mm3 (150-375); Red Blood Count 4.43 M/mm3 (4.6-6.20); White Blood Count 13.5 K/mm3 (4.5-10.0)
[2023-11-22 09:08] LABS: INR 1.1; Prothrombin Time 14.4 Seconds (11.1-14.7)
[2023-11-22] MEDS: ONDANSETRON INJ 4 MG/2 ML VIAL IV PUSH ×3 (09:09→22:09)
[2023-11-22 09:11] LABS: Alanine Aminotransferase 13 U/L (6-50); Albumin Level 3.8 g/dL (3.5-5.1); Alkaline Phosphatase 121 U/L (38-126); Aspartate Amino Transferase 29 U/L (17-59); Bilirubin,Total 2.4 mg/dL (0.2-1.3)
[2023-11-22] MEDS: SODIUM CHLORIDE 0.9% IV 1,000 ML 125 ML IV CONT ×3 (09:15→22:10)
[2023-11-22 09:24] LABS: Iron 243 ug/dL (49-181)
[2023-11-22 09:35] LABS: Percent Iron Saturation 93 % (20-50)
[2023-11-22 09:53] LABS: Hepatitis B Surface Antigen Negative (Negative)
[2023-11-22 09:59] LABS: HAV RESULT Negative (Negative); Hepatitis B Core IgM Result Negative (Negative)
[2023-11-22 10:11] LABS: Hepatitis C Virus Antibody Negative (Negative)
[2023-11-22] MEDS: chlordiazePOXIDE (*CRX) 5 MG CAPSULE PO (11:30)
--- NOTE | 2023-11-22 11:49 | PM.IMPN ---
Progress Note: A&P Assessment and Plan (1) Elevated liver enzymes: Code(s): R74.8 - Abnormal levels of other serum enzymes Status: Acute (2) Epigastric abdominal pain: Code(s): R10.13 - Epigastric pain Status: Acute (3) Acute upper GI bleed: Code(s): K92.2 - Gastrointestinal hemorrhage, unspecified Status: Acute (4) Alcohol abuse: Code(s): F10.10 - Alcohol abuse, uncomplicated Status: Acute Plan GERD/upper GI bleed Advised to see GI for EGD if symptoms worsen Use PPI as advised Watch for dysphagia and sudden weight loss Monitor H&H 17.3 Stool for occult blood is positive EGD arranged and patient will be NPO after midnight Encouraged lifestyle changes and the need for a lifelong regimen of medications to help reduce symptoms. Discussed the potential for serious complications if symptoms are not resolved. Encouraged to totally quit alcoholic beverages and avoidance of smoking Hypokalemia due to nausea and vomiting K rider. Potassium 2.2/2.9 Monitor electrolytes closely ASHWIN cause dehydration/nausea vomiting serum creatinine 1.60 Continue IV hydration Monitor antihypertensive drug therapy. Avoid NSAIDs. Routine CMP monitoring GFR. Monitor electrolytes especially potassium. Pharmacy does medications. Monitor blood sugars closely. Abnormal LFT Due to alcohol abuse chronic. Undergoing detox will start CIWA protocol Serum bilirubin 2.3. AST ALT back to baseline Alkaline phosphatase 151 possibly due to a alcohol PT INR 1.1 Subjective Date/time seen: 11/22/23 11:49 Interval history: Patient very nauseous today had couple of episodes of vomiting no hematemesis or hemoptysis also very shaky last drink was 3 days of Review of Systems Review of Systems: All systems reviewed & are unremarkable except as noted in HPI and below Exam Narrative: GENERAL: Well appearing, no acute distress. HEAD: Normocephalic, atraumatic. NECK: Supple. No adenopathy, no masses. RESPIRATORY: respirations nonlabored. , no rales, wheezing. CARDIOVASCULAR: Regular rate and rhythm without murmurs, . Peripheral pulses 2+ and equal bilaterally. ABDOMINAL: Soft, nontender, nondistended, no hepatosplenomegaly. Normoactive BS. MUSCULOSKELETAL: no Epigastric and no hypochondrial tenderness SKIN: Warm, dry, NEURO: A&O X3. Moves all extremities Objective Data Vital Signs Vital Signs: Vital Signs - 24 hr 11/21/23 14:58 11/21/23 15:26 11/21/23 15:46 Temperature 36.5 C Pulse Rate 119 H 117 H 101 H Respiratory Rate 17 20 17 Blood Pressure 148/97 H 156/96 H 129/86 Pulse Oximetry 99 98 99 Oxygen Delivery Room Air Fraction of Inspired Oxygen 11/21/23 17:00 11/21/23 17:16 11/21/23 18:37 Temperature Pulse Rate 101 H 111 H Respiratory Rate 17 20 Blood Pressure 145/98 H 145/91 H Pulse Oximetry 100 99 Oxygen Delivery Fraction of Inspired Oxygen 11/21/23 18:50 11/21/23 19:51 11/21/23 18:50 Temperature 37.7 C H 37.4 C 37.7 C H Pulse Rate 104 H 112 H 104 H Respiratory Rate 16 18 16 Blood Pressure 160/81 H 151/87 H 160/81 H Pulse Oximetry 99 96 99 Oxygen Delivery Fraction of Inspired Oxygen 11/21/23 19:55 11/21/23 20:00 11/21/23 20:00 Temperature Pulse Rate 111 H 100 100 Respiratory Rate 18 Blood Pressure Pulse Oximetry 96 Oxygen Delivery Room Air Fraction of Inspired Oxygen 11/21/23 22:00 11/21/23 23:54 11/21/23 23:54 Temperature Pulse Rate 82 102 H 100 Respiratory Rate 18 Blood Pressure Pulse Oximetry 96 Oxygen Delivery Room Air Fraction of Inspired Oxygen 11/21/23 23:55 11/22/23 03:50 11/22/23 02:00 Temperature 37.4 C 36.9 C Pulse Rate 99 100 86 Respiratory Rate 20 20 Blood Pressure 151/91 H 166/94 H Pulse Oximetry 100 100 Oxygen Delivery Fraction of Inspired Oxygen 11/22/23 04:00 11/22/23 04:00 11/22/23 04:00 Temperature Pulse
[2023-11-22 12:50] LABS: Glucose Point of Care 107 mg/dl (65-105)
[2023-11-22 13:16] LABS: Potassium 3.8 mmol/L (3.4-5.0)
[2023-11-22] MEDS: chlordiazePOXIDE (*CRX) 25 MG CAPSULE 50 MG PO ×3 (14:29→23:55)
[2023-11-22 21:49] LABS: Alanine Aminotransferase 12 U/L (6-50); Albumin Level 3.2 g/dL (3.5-5.1); Alkaline Phosphatase 98 U/L (38-126); Anion Gap 5 mmol/L (4-12); Aspartate Amino Transferase 26 U/L (17-59); Bilirubin,Total 2.2 mg/dL (0.2-1.3); Blood Urea Nitrogen 10 mg/dL (9-20); Carbon Dioxide 28 mmol/L (22-30); Chloride 103 mmol/L (98-107); Estimated CRCL calculation 82 ml/min; Estimated Glomerular Filt Rate > 60; Glucose 98 mg/dL (65-110); Potassium 3.2 mmol/L (3.4-5.0); Sodium 136 mmol/L (137-145)
[2023-11-22] MEDS: HALOPERIDOL LACTATE 5 MG/ML VIAL 2 MG IV PUSH (22:09)
[2023-11-22] MEDS: POTASSIUM CHLORIDE INJ 40 MEQ in SODIUM CHLORIDE 0.9% IV 500 ML 130 MEQ IVPB (22:22)
[2023-11-23] VITALS (25 sets, daily range): BP systolic 85–164; BP diastolic 45–92; PULSE 60–83; RESP 15–32; TEMP 36.1–37.1; O2SAT 97–100
[2023-11-23 04:57] LABS: Hemoglobin 12.8 g/dL (14.0-18.0); Immature Platelet Fraction Pct 7.6 % (0.9-11.2); Mean Corpuscular HGB Conc 33.7 g/dl (32-36); Mean Corpuscular Hemoglobin 34.2 pg (26-34); Mean Corpuscular Volume 101.6 fl (80-100); Mean Platelet Volume 10.9 fl (7.4-10.4); Platelet Count Result 115 k/mm3 (150-375); Red Blood Count 3.74 M/mm3 (4.6-6.20); Red Cell Distribution Width 15.6 % (11.5-14.5)
[2023-11-23 05:02] LABS: Anion Gap 4 mmol/L (4-12); Blood Urea Nitrogen 10 mg/dL (9-20); Calcium 8.2 mg/dL (8.4-10.2); Carbon Dioxide 28 mmol/L (22-30); Chloride 104 mmol/L (98-107); Estimated CRCL calculation 71 ml/min; Estimated Glomerular Filt Rate > 60; Glucose 105 mg/dL (65-110); Potassium 3.1 mmol/L (3.4-5.0); Sodium 136 mmol/L (137-145)
[2023-11-23] MEDS: chlordiazePOXIDE (*CRX) 25 MG CAPSULE 50 MG PO ×4 (05:19→23:08)
[2023-11-23] MEDS: PANTOPRAZOLE SODIUM IV 40 MG VIAL IV PUSH ×2 (07:59→17:00)
[2023-11-23] MEDS: THIAMINE HCL 200 MG/2 ML VIAL 100 MG IV PUSH (07:59)
[2023-11-23] MEDS: MAGNESIUM OXIDE 400 MG TABLET PO ×2 (08:00→17:01)
[2023-11-23] MEDS: POTASSIUM CHLORIDE 20 MEQ PACKET (FOR LIQUID) 40 MEQ PO ×2 (08:00→10:40)
[2023-11-23] MEDS: ONDANSETRON INJ 4 MG/2 ML VIAL IV PUSH ×3 (08:00→23:10)
[2023-11-23] MEDS: SODIUM CHLORIDE 0.9% IV 1,000 ML 125 ML IV CONT (10:41)
--- NOTE | 2023-11-23 11:36 | PM.IMPN ---
Progress Note: A&P Assessment and Plan (1) Elevated liver enzymes: Code(s): R74.8 - Abnormal levels of other serum enzymes Status: Acute (2) Epigastric abdominal pain: Code(s): R10.13 - Epigastric pain Status: Acute (3) Acute upper GI bleed: Code(s): K92.2 - Gastrointestinal hemorrhage, unspecified Status: Acute (4) Alcohol abuse: Code(s): F10.10 - Alcohol abuse, uncomplicated Status: Acute Plan GERD/upper GI bleed GI for EGD today Use PPI as advised Watch for dysphagia and sudden weight loss Monitor H&H 17.3/12.8 Stool for occult blood is positive EGD arranged and patient will be NPO after midnight Encouraged to totally quit alcoholic beverages and avoidance of smoking Hypokalemia due to nausea and vomiting KCL 40 mg daily Potassium 2.2/2.9/3.1 Monitor electrolytes closely ASHWIN cause dehydration/nausea vomiting serum creatinine 1.60/0.8 Continue IV hydration Monitor antihypertensive drug therapy. Avoid NSAIDs. Routine CMP monitoring GFR. Monitor blood sugars closely. Abnormal LFT Due to alcohol abuse chronic. Undergoing detox will start [facility] protocol getting Librium p.r.n. Serum bilirubin 2.3. AST ALT back to baseline Alkaline phosphatase 151 possibly due to a alcohol PT INR 1.1 Subjective Date/time seen: 11/23/23 11:36 Interval history: Appears comfortable denied any hemoptysis or hematemesis Review of Systems Review of Systems: All systems reviewed & are unremarkable except as noted in HPI and below Exam Narrative: GENERAL: Well appearing, no acute distress. HEAD: Normocephalic, atraumatic. NECK: Supple. No adenopathy, no masses. RESPIRATORY: respirations nonlabored. , no rales, wheezing. CARDIOVASCULAR: Regular rate and rhythm without murmurs, . Peripheral pulses 2+ and equal bilaterally. ABDOMINAL: Soft, nontender, nondistended, no hepatosplenomegaly. Normoactive BS. MUSCULOSKELETAL: no Epigastric and no hypochondrial tenderness SKIN: Warm, dry, NEURO: A&O X3. Moves all extremities Objective Data Vital Signs Vital Signs: Vital Signs - 24 hr 11/22/23 11:43 11/22/23 11:47 11/22/23 12:00 Temperature 36.8 C Pulse Rate 77 Pulse Rate [Bilateral Radial Palpation] 93 70 Respiratory Rate 16 Blood Pressure 156/77 H 156/77 H Pulse Oximetry 100 Oxygen Delivery Fraction of Inspired Oxygen 11/22/23 12:00 11/22/23 12:00 11/22/23 16:00 Temperature 36.1 C L Pulse Rate 70 77 68 Pulse Rate [Bilateral Radial Palpation] Respiratory Rate 16 16 Blood Pressure 148/88 H Pulse Oximetry 100 100 Oxygen Delivery Room Air Fraction of Inspired Oxygen 21 11/22/23 16:00 11/22/23 16:00 11/22/23 16:00 Temperature Pulse Rate 70 68 Pulse Rate [Bilateral Radial Palpation] 70 Respiratory Rate 16 Blood Pressure 148/88 H Pulse Oximetry 100 Oxygen Delivery Room Air Fraction of Inspired Oxygen 21 11/22/23 18:00 11/22/23 19:29 11/22/23 20:00 Temperature 36.7 C Pulse Rate 91 73 73 Pulse Rate [Bilateral Radial Palpation] Respiratory Rate 18 18 Blood Pressure 158/81 H Pulse Oximetry 99 99 Oxygen Delivery Room Air Fraction of Inspired Oxygen 21 11/22/23 20:00 11/22/23 22:00 11/22/23 23:55 Temperature 36.6 C Pulse Rate 68 73 64 Pulse Rate [Bilateral Radial Palpation] Respiratory Rate 18 Blood Pressure 162/98 H Pulse Oximetry 100 Oxygen Delivery Fraction of Inspired Oxygen 11/23/23 00:10 11/23/23 00:00 11/23/23 02:00 Temperature Pulse Rate 64 81 83 Pulse Rate [Bilateral Radial Palpation] Respiratory Rate 18 Blood Pressure Pulse Oximetry 100 Oxygen Delivery Room Air Fraction of Inspired Oxygen 11/23/23 03:12 11/23/23 03:55 11/23/23 04:00 Temperature 37.0 C Pulse Rate 78 78 66 Pulse Rate [Bilateral Radial Palpation] Respiratory Rate 18 18 Blood Pressure 152/86 H Pulse Oximetry 100 100
[2023-11-23 11:45] LABS: Glucose Point of Care 88 mg/dl (65-105)
[2023-11-23] MEDS: LACTATED RINGERS 1,000 ML 150 ML IV CONT (12:03)
--- NOTE | 2023-11-23 12:03 | WPDANESEPPF ---
Anes - Initial Pre Proc Eval Procedure: Operation Date: 11/23/23 15:30 Proposed Procedures p Esophagogastroduodenoscopy - Frankie Palencia MD Date/Time: 11/23/23 12:03 Surgeon: Taylor Owen DO Pre Op Diagnosis: Upper GI bleed, Alcohol withdrawl Patient Data Age: 53 Gender: M Height: 1.73 m Weight: 55.5 kg Last Vital Signs Temp 97 F L 11/23/23 12:00 Pulse 64 11/23/23 12:00 Resp 18 11/23/23 12:00 BP 133/69 11/23/23 12:00 Pulse Ox 98 11/23/23 12:00 O2 Del Method Room Air 11/23/23 12:00 FiO2 21 11/23/23 11:57 Allergies Allergy/AdvReac Type Severity Reaction Status Date / Time iohexol AdvReac Mild Nausea Verified 11/23/23 11:58 [From contrast - CT, X-RAY] Home Medications Medication Instructions Recorded Confirmed Type No Home Medications 11/21/23 11/21/23 History Laboratory Tests 11/22/23 11/22/23 11/22/23 12:42 12:55 21:28 WBC RBC Hgb Hct MCV MCH MCHC RDW Plt Count MPV % Immature Plt Fraction Sodium 136 L mmol/L (137-145) Potassium 3.8 mmol/L 3.2 L mmol/L (3.4-5.0) (3.4-5.0) Chloride 103 mmol/L (98-107) Carbon Dioxide 28 mmol/L (22-30) Anion Gap 5 mmol/L (4-12) BUN 10 mg/dL (9-20) Creatinine 0.70 mg/dL (0.7-1.3) Estim Creat Clear Calc 82 ml/min Estimated GFR > 60 (59 - ) Glucose 98 mg/dL (65-110) POC Capillary Glucose 107 H mg/dl (65-105) Calcium 8.0 L mg/dL (8.4-10.2) Total Bilirubin 2.2 H mg/dL (0.2-1.3) AST 26 U/L (17-59) ALT 12 U/L (6-50) Alkaline Phosphatase 98 U/L (38-126) Total Protein 6.0 L g/dL (6.3-8.2) Albumin 3.2 L g/dL (3.5-5.1) 11/23/23 11/23/23 04:08 11:21 WBC 9.0 K/mm3 (4.5-10.0) RBC 3.74 L M/mm3 (4.6-6.20) Hgb 12.8 L g/dL (14.0-18.0) Hct 38.0 L % (42.0-52.0) MCV 101.6 H fl (80-100) MCH 34.2 H pg (26-34) MCHC 33.7 g/dl (32-36) RDW 15.6 H % (11.5-14.5) Plt Count 115 L k/mm3 (150-375) MPV 10.9 H fl (7.4-10.4) % Immature Plt Fraction 7.6 % (0.9-11.2) Sodium 136 L mmol/L (137-145) Potassium 3.1 L mmol/L (3.4-5.0) Chloride 104 mmol/L (98-107) Carbon Dioxide 28 mmol/L (22-30) Anion Gap 4 mmol/L (4-12) BUN 10 mg/dL (9-20) Creatinine 0.80 mg/dL (0.7-1.3) Estim Creat Clear Calc 71 ml/min Estimated GFR > 60 (59 - ) Glucose 105 mg/dL (65-110) POC Capillary Glucose 88 mg/dl (65-105) Calcium 8.2 L mg/dL (8.4-10.2) Total Bilirubin AST ALT Alkaline Phosphatase Total Protein Albumin Patient hx anesthesia problems: none Family hx anesthesia problems: none Results Review: All pre-operative results and documents have been reviewed as part of the pre-operative evaluation. [facility] Past Medical History Medical History Alcohol abuse Tobacco abuse Surgical History Surgical History No history of previous surgery Family History Family History Mother Diabetes mellitus Social History Social History Social History: Surrogate medical decision maker: sally Burden. Code status: Full code. Smoking packs per day: 1 Smoking cigarettes per day: 20.0 Years smoked: 40 Smoking pack-years: 40.00 Smoking status: Current every day smoker Tobacco type: cigarettes Alcohol intake: current Drink
[2023-11-23 12:04] LABS: Ceruloplasmin 29 mg/dL (14-30)
[2023-11-23] MEDS: SUCRALFATE SUSP 100 MG/ML 10 ML UDC 1000 MG PO ×2 (17:00→20:03)
[2023-11-23] MEDS: HALOPERIDOL LACTATE 5 MG/ML VIAL 2 MG IV PUSH (17:13)
[2023-11-23 18:35] LABS: Glucose Point of Care 155 mg/dl (65-105)
[2023-11-24] VITALS (11 sets, daily range): BP systolic 124–151; BP diastolic 67–80; PULSE 64–83; RESP 12–24; TEMP 36.9; O2SAT 97–100
[2023-11-24] MEDS: chlordiazePOXIDE (*CRX) 25 MG CAPSULE 50 MG PO ×3 (04:56→17:10)
[2023-11-24] MEDS: PANTOPRAZOLE SODIUM IV 40 MG VIAL IV PUSH (08:09)
[2023-11-24] MEDS: THIAMINE HCL 200 MG/2 ML VIAL 100 MG IV PUSH (08:10)
[2023-11-24] MEDS: MAGNESIUM OXIDE 400 MG TABLET PO ×3 (08:11→17:10)
--- NOTE | 2023-11-24 08:37 | PC.NURSE ---
Dr. Driscoll at bedside discussed plan of care with patient. Labs to be ordered, Tylenol only for pain per MD.
[2023-11-24] MEDS: POTASSIUM CHLORIDE 20 MEQ PACKET (FOR LIQUID) 40 MEQ PO (08:45)
[2023-11-24 09:02] LABS: Hemoglobin 12.6 g/dL (14.0-18.0); Immature Platelet Fraction Pct 7.7 % (0.9-11.2); Mean Corpuscular Hemoglobin 34.9 pg (26-34); Mean Corpuscular Volume 99.7 fl (80-100); Mean Platelet Volume 11.2 fl (7.4-10.4); Platelet Count Result 97 k/mm3 (150-375); Red Blood Count 3.61 M/mm3 (4.6-6.20); Red Cell Distribution Width 15.2 % (11.5-14.5); White Blood Count 9.1 K/mm3 (4.5-10.0)
[2023-11-24 09:13] LABS: Alanine Aminotransferase 15 U/L (6-50); Albumin Level 3.2 g/dL (3.5-5.1); Alkaline Phosphatase 96 U/L (38-126); Anion Gap 5 mmol/L (4-12); Aspartate Amino Transferase 32 U/L (17-59); Bilirubin,Total 1.4 mg/dL (0.2-1.3); Blood Urea Nitrogen 13 mg/dL (9-20); Calcium 8.5 mg/dL (8.4-10.2); Carbon Dioxide 28 mmol/L (22-30); Chloride 104 mmol/L (98-107); Estimated CRCL calculation 71 ml/min; Estimated Glomerular Filt Rate > 60; Glucose 100 mg/dL (65-110); Sodium 137 mmol/L (137-145)
--- NOTE | 2023-11-24 09:23 | PCNFU ---
Nutrition Follow-Up Complete: Inadequate oral intake related to chronic esophageal stricture, loss of appetite as evidenced by patient report of poor appetite several months and minimal PO intake 3 days. Goal: Diet orders - Goal is met. [place], low fiber diet started after EGD Diet textures appropriate for patient needs - Goal is met. Low fiber diet Pt current nutrition is Lower fiber, bland diet. Intakes 50-100%. Nutrition recommendation: No new nutrition recommendations. Continue with current nutrition care plan and orders. Agree with orders Last recorded weight is 55.3 kg. Down 2.2 lbs since admission Bowel Motility: Last BM 11/20/23. No BMs charted since admission Labs Reviewed: Hgb 12.6, Hct 36, Alb 3.2, K+ 3.0 Meds Noted: Zofran, protonix, MagOx, thiamine Skin: No skin issues Additional Notes: EGD yesterday, report and biopsy pending. Diet advanced, intakes 50-100%. Agree with orders Monitoring diet advancement, swallowing ability, weights, labs, plan of care Follow up in 5+ days
--- NOTE | 2023-11-24 11:15 | PM.IMPN ---
Progress Note: A&P Assessment and Plan (1) Elevated liver enzymes: Code(s): R74.8 - Abnormal levels of other serum enzymes Status: Acute (2) Epigastric abdominal pain: Code(s): R10.13 - Epigastric pain Status: Acute (3) Acute upper GI bleed: Code(s): K92.2 - Gastrointestinal hemorrhage, unspecified Status: Acute (4) Alcohol abuse: Code(s): F10.10 - Alcohol abuse, uncomplicated Status: Acute Plan GERD/upper GI bleed GI for EGD today Use PPI as advised Watch for dysphagia and sudden weight loss Monitor H&H 17.3/12.8 Stool for occult blood is positive EGD showed reflux esophagitis and erosive gastritis and hiatal hernia Encouraged to totally quit alcoholic beverages and avoidance of smoking Hypokalemia due to nausea and vomiting KCL 40 mg daily Potassium 2.2/2.9/3.1/3.0 Monitor electrolytes closely ASHWIN cause dehydration/nausea vomiting serum creatinine 1.60/0.8/0.8 Continue IV hydration Monitor antihypertensive drug therapy. Avoid NSAIDs. Routine CMP monitoring GFR. Monitor blood sugars closely. 158 Abnormal LFT Due to alcohol abuse chronic. Undergoing detox will start CIWA protocol getting Librium p.r.n. Serum bilirubin 2.3. AST ALT back to baseline Alkaline phosphatase 151 possibly due to a alcohol PT INR 1.1 Subjective Date/time seen: 11/24/23 11:15 Interval history: Still has some shakes and disorientation recovering from delirium 6 Review of Systems Review of Systems: All systems reviewed & are unremarkable except as noted in HPI and below Exam Narrative: GENERAL: Well appearing, no acute distress. HEAD: Normocephalic, atraumatic. NECK: Supple. No adenopathy, no masses. RESPIRATORY: respirations nonlabored. , no rales, wheezing. CARDIOVASCULAR: Regular rate and rhythm without murmurs, . Peripheral pulses 2+ and equal bilaterally. ABDOMINAL: Soft, nontender, nondistended, no hepatosplenomegaly. Normoactive BS. MUSCULOSKELETAL: no Epigastric and no hypochondrial tenderness SKIN: Warm, dry, NEURO: A&O X3. Moves all extremities Objective Data Vital Signs Vital Signs: Vital Signs - 24 hr 11/23/23 11:47 11/23/23 11:57 11/23/23 11:57 Temperature 36.6 C Pulse Rate 63 63 Respiratory Rate 16 16 Blood Pressure 164/75 H 164/75 H Pulse Oximetry 100 100 Oxygen Delivery Room Air Fraction of Inspired Oxygen 11/23/23 12:00 11/23/23 12:00 11/23/23 13:00 Temperature 36.1 C L Pulse Rate 63 64 70 Respiratory Rate 18 32 H Blood Pressure 133/69 85/45 L Pulse Oximetry 98 98 Oxygen Delivery Room Air Room Air Fraction of Inspired Oxygen 11/23/23 13:10 11/23/23 13:20 11/23/23 15:53 Temperature 36.7 C Pulse Rate 78 79 78 Respiratory Rate 29 H 15 16 Blood Pressure 90/48 L 110/59 L 129/72 Pulse Oximetry 100 100 100 Oxygen Delivery Room Air Room Air Fraction of Inspired Oxygen 11/23/23 14:00 11/23/23 16:00 11/23/23 16:00 Temperature Pulse Rate 60 65 Respiratory Rate Blood Pressure 129/72 Pulse Oximetry Oxygen Delivery Fraction of Inspired Oxygen 11/23/23 16:00 11/23/23 18:00 11/23/23 19:28 Temperature 36.7 C Pulse Rate 78 78 74 Respiratory Rate 16 16 Blood Pressure 127/71 Pulse Oximetry 100 99 Oxygen Delivery Room Air Fraction of Inspired Oxygen 21 11/23/23 20:00 11/23/23 20:00 11/23/23 22:00 Temperature Pulse Rate 74 72 71 Respiratory Rate 16 Blood Pressure Pulse Oximetry 99 Oxygen Delivery Room Air Fraction of Inspired Oxygen 11/23/23 23:13 11/23/23 23:18 11/24/23 00:00 Temperature 37.1 C Pulse Rate 65 65 71 Respiratory Rate 17 17 Blood Pressure 129/70 Pulse Oximetry 97 97 Oxygen Delivery Room Air Fraction of Inspired Oxygen 11/24/23 02:00 11/24/23 04:00 11/24/23 04:00 Temperature Pulse Rate 66 66 66 Respiratory Rate 17 Blood Pressure Pulse Oximetry 97 Oxygen Deliv
--- NOTE | 2023-11-24 12:00 | PC.NURSE ---
Patient of complaining of nausea and emesis. Up to chair without assistance. Zofran IVP given.
[2023-11-24] MEDS: SUCRALFATE SUSP 100 MG/ML 10 ML UDC 1000 MG PO ×3 (12:03→20:47)
[2023-11-24] MEDS: ONDANSETRON INJ 4 MG/2 ML VIAL IV PUSH (12:03)
--- NOTE | 2023-11-24 12:22 | WPDANESPN ---
Anes - Prog Note Post-Op Date/Time: 11/24/23 12:22 Cardiovascular status: normal Respiratory status: normal Airway patency: baseline Mental status: baseline Post-Op hydration status: normal Vital Signs: Last Vital Signs Temp 36.9 C 11/24/23 11:35 Pulse 68 11/24/23 11:35 Resp 12 11/24/23 11:35 BP 124/69 11/24/23 11:35 Pulse Ox 97 11/24/23 11:35 O2 Del Method Room Air 11/24/23 08:00 FiO2 21 11/24/23 04:00 Pain Score (VAS): 08/19 I/O: Intake & Output 11/23/23 11/24/23 11/24/23 23:59 07:59 15:59 Intake Total 540 250 240 Output Total 400 350 200 Balance 140 -100 40 Laboratory Tests 11/24/23 08:44 11/24/23 08:44 11/23/23 11/24/23 18:31 08:44 WBC 9.1 RBC 3.61 L Hgb 12.6 L Hct 36.0 L MCV 99.7 MCH 34.9 H MCHC 35.0 RDW 15.2 H Plt Count 97 L MPV 11.2 H % Immature Plt Fraction 7.7 Sodium 137 Potassium 3.0 L Chloride 104 Carbon Dioxide 28 Anion Gap 5 BUN 13 Creatinine 0.80 Estim Creat Clear Calc 71 Estimated GFR > 60 Glucose 100 POC Capillary Glucose 155 H Calcium 8.5 Total Bilirubin 1.4 H AST 32 ALT 15 Alkaline Phosphatase 96 Total Protein 6.0 L Albumin 3.2 L Post-procedural complaints: none Patient Feedback: Patient satisfied with anesthetic care.
[2023-11-24 12:24] LABS: Alpha Fetoprotein Tumor Marker 3.6 ng/mL (<6.1)
--- NOTE | 2023-11-24 13:26 | PC.NURSE ---
This patient, Corey Johnson, was transferred to [facility] via wheelchair without issue on 11/24/23 at 1320. Personal belongings sent with patient. Report given to OCTAVIO Campos Appropriate documentation sent with patient.
--- NOTE | 2023-11-24 13:37 | PC.NURSE ---
This patient, Corey Johnson, was received from [facility] on 11/24/23 at 1337. Patient/family oriented to unit policies and routines
--- NOTE | 2023-11-24 15:41 | WPDGIPROGNO ---
Progress Note: A&P Assessment and Plan (1) Ulcerative esophagitis: Code(s): K22.10 - Ulcer of esophagus without bleeding Status: Acute Assessment and Plan: found in EGD on protonix and carafate egd in 4-5 months to assess healing needs to stop drinking (2) Elevated liver enzymes: Code(s): R74.8 - Abnormal levels of other serum enzymes Status: Acute (3) Epigastric abdominal pain: Code(s): R10.13 - Epigastric pain Status: Acute Assessment and Plan: improved, less nausea (4) Acute upper GI bleed: Code(s): K92.2 - Gastrointestinal hemorrhage, unspecified Status: Acute Assessment and Plan: from esophagitis, no more episodes (5) N&V (nausea and vomiting): Qualifiers: Vomiting type: unspecified Qualified Code(s): R11.2 - Nausea with vomiting, unspecified Code(s): R11.2 - Nausea with vomiting, unspecified Status: Acute (6) Alcohol abuse: Code(s): F10.10 - Alcohol abuse, uncomplicated Status: Acute (7) Alcohol withdrawal: Code(s): F10.939 - Alcohol use, unspecified with withdrawal, unspecified Status: Acute Subjective Date/time seen: 11/24/23 15:41 Interval history: less nausea, feeling better Review of Systems Review of Systems: All systems reviewed & are unremarkable except as noted in HPI and below Exam Const: General: comfortable HENMT: Face/Nose/Sinus: Normal nares present Eyes: General: appearance normal, both eyes and all related structures Neck: Neck: supple Resp: Effort & Inspection: normal respiratory effort Auscultation: diminished lung sounds Cardio: Rate: regular rate Rhythm: regular rhythm GI: GI Palp: Yes Soft to palpation and No Tenderness to palpation present (GI) Auscultation: normal bowel sounds Skin: General skin exam: no rashes or lesions noted Neuro: Speech: normal speech Extrem: General: normal to inspection Psych: Mental Status: mental status grossly normal Affect: normal affect Objective Data Vital Signs Vital Signs: Vital Signs - 24 hr 11/23/23 15:53 11/23/23 16:00 11/23/23 16:00 Temperature 98.1 F Pulse Rate 78 65 Respiratory Rate 16 Blood Pressure 129/72 129/72 Pulse Oximetry 100 Oxygen Delivery Fraction of Inspired Oxygen 11/23/23 16:00 11/23/23 18:00 11/23/23 19:28 Temperature 98.1 F Pulse Rate 78 78 74 Respiratory Rate 16 16 Blood Pressure 127/71 Pulse Oximetry 100 99 Oxygen Delivery Room Air Fraction of Inspired Oxygen 21 11/23/23 20:00 11/23/23 20:00 11/23/23 22:00 Temperature Pulse Rate 74 72 71 Respiratory Rate 16 Blood Pressure Pulse Oximetry 99 Oxygen Delivery Room Air Fraction of Inspired Oxygen 21 11/23/23 23:13 11/23/23 23:18 11/24/23 00:00 Temperature 98.7 F Pulse Rate 65 65 71 Respiratory Rate 17 17 Blood Pressure 129/70 Pulse Oximetry 97 97 Oxygen Delivery Room Air Fraction of Inspired Oxygen 21 11/24/23 02:00 11/24/23 04:00 11/24/23 04:00 Temperature Pulse Rate 66 66 66 Respiratory Rate 17 Blood Pressure Pulse Oximetry 97 Oxygen Delivery Room Air Fraction of Inspired Oxygen 11/24/23 04:00 11/24/23 06:00 11/24/23 07:31 Temperature 98.4 F 98.5 F Pulse Rate 79 64 68 Respiratory Rate 16 16 Blood Pressure 142/80 H 151/74 H Pulse Oximetry 100 97 Oxygen Delivery Fraction of Inspired Oxygen 11/24/23 08:00 11/24/23 08:00 11/24/23 10:00 Temperature Pulse Rate 78 76 Respiratory Rate Blood Pressure Pulse Oximetry 97 Oxygen Delivery Room Air Fraction of Inspired Oxygen 11/24/23 10:43 11/24/23 10:44 11/24/23 11:35 Temperature 98.5 F Pulse Rate 72 83 68 Respiratory Rate 18 16 12 Blood Pressure 139/67 128/71 124/69 Pulse Oximetry 97 Oxygen Delivery Fraction of Inspired Oxygen 11/24/23 13:30 Temperature 98.4 F Pulse Rate 65 Respiratory Rate 24 H Blood Pressure 1
--- NOTE | 2023-11-24 18:05 | PC.NURSE ---
Dr Driscoll notified that patient may leave AMA patient stated he is going to find a ride.
--- NOTE | 2023-11-24 18:28 | PC.NURSE ---
DR Driscoll notified that patient left AMA
--- NOTE | 2023-11-24 18:49 | PC.NURSE ---
Patient went downstairs and said his legs were weak so he did not leave AMA came back up to his room. Dr Driscoll notified
--- NOTE | 2023-11-24 23:49 | PC.NURSE ---
At approx. 2338 went into pt's room to check on him. Pt was not in bed nor in the restroom and it looked like all belongings were taken without notifying staff. Notified battery recharger and traffic warehouse supervisor. roll forming supervisor notified security. Pt found outside by security.
[2023-11-28 05:13] LABS: LKM 1 Antibody <=20.0 U (<=20.0)
[2023-11-28 21:12] LABS: Actin Antibody (IgG) <20 U (<20)
[2023-12-04 21:03] LABS: Mitochondrial (M2) Ab (IgG) 26.7 U
--- NOTE | 2024-01-03 21:35 | PM.DS ---
DS: Admitting Diagnosis Discharge Date 11/25/23 Admitting Diagnosis alcohol abuse DS: Discharge Diagnosis Discharge Diagnosis (1) Elevated liver enzymes: Code(s): R74.8 - Abnormal levels of other serum enzymes Status: Acute (2) Epigastric abdominal pain: Code(s): R10.13 - Epigastric pain Status: Acute (3) Acute upper GI bleed: Code(s): K92.2 - Gastrointestinal hemorrhage, unspecified Status: Acute (4) Dysphagia: Code(s): R13.10 - Dysphagia, unspecified Status: Acute DS: Summary Hospital Course Hospital Course: left AMA Time Spent with Patient Time attestation: Total time spent providing and/or coordinating discharge services: DS: Data Data Completed and Pending Completed studies during hospitalization: Pending at discharge 11/23/23 12:55 Surgical [PTH] Routine Discharge Plan Discharge Consulting providers: Frankie Palencia; Jonathan Goodman; Baudilio Sheikh; Jerrell Irby; Tasha Krishnan; Asher Preston; Ace Dasilva; Janet Ambriz Discharging Clinician: Scott Driscoll Patient Disposition: Home, Self-Care Activity: as tolerated Diet: as tolerated Discharge Instructions: Alcohol abuse, GI Bleed. Follow-up/Referrals: Frankie Palencia MD [Physician] - Discharge Medications: No Action pantoprazole [Protonix] 40 mg tablet,delayed release (DR/EC) 40 mg PO QAM 56 Days Qty: 56 0RF sucralfate [Carafate] 1 gram tablet 1 g PO TID Qty: 90 0RF Date of admission: 11/24/23 11:27 Primary Care Provider: Allan Armenta Admitting Provider: Taylor Owen Attending physician on admission: Scott Driscoll Condition: Serious
== END 2023-11-25 | disposition left against medical advice (07) | DRG 253 ==
LOC: ANHED 15:36 → ANHIMU 18:21 → ANH2MED 11-24 13:43
PROVIDERS: Internal Medicine Gastroenterology; Nurse Practitioner; Physician Assistant; Student in an Organized Health Care Education/Training Program; Admitting Provider Internal Medicine; Emergency Provider Emergency Medicine; PCP Internal Medicine; Visit Provider Internal Medicine
PROC: 0DJ08ZZ Inspection of Upper Intestinal Tract, Via Natural or Artificial Opening Endoscopic (ICD-10-PCS; CPT 43235; principal; 2023-11-23 15:30)
DX: K92.2 Gastrointestinal hemorrhage, unspecified (principal); K44.9 Diaphragmatic hernia without obstruction or gangrene; F10.129 Alcohol abuse with intoxication, unspecified; F17.210 Nicotine dependence, cigarettes, uncomplicated; Y90.8 Blood alcohol level of 240 mg/100 ml or more; K21.01 Gastro-esophageal reflux disease with esophagitis, with bleeding; N17.9 Acute kidney failure, unspecified; E87.6 Hypokalemia; R13.10 Dysphagia, unspecified
CPT/HCPCS: 36415; 71045; 76705; 80048; 80053; 80074; 80076; 80307; 81001; 82105; 82271; 82390; 82728; 82948; 83520; 83540; 83550; 83735; 83986; 84100; 84132; 84443; 84484; 85014; 85018; 85025; 85027; 85055; 85610; 85730; 86364; 86376; 88305; 93005; 96361; 96365; 96366; 96367; 96375; 97110; 97161; 97530; 99285; A9270; C9113; G0378; G0379; J1630; J2001; J2060; J2405; J2704; J3411; J3475; J3480; J7030; J7040; J7120

== ENCOUNTER 2023-11-24 23:56 | Emergency (ER) | payer OTHER, SELFPAY ==
[2023-11-25 00:08] VITALS: BP 153/91; PULSE 86; RESP 11; TEMP 36.8; O2SAT 98
[2023-11-25 00:25] LABS: Basophils Percent Auto 0.2 % (0.2-1.2); Eosinophils Absolute Auto 0.1 K/mm3 (0-0.3); Eosinophils Percent Auto 0.9 % (0-4.4); Hematocrit 39.6 % (42.0-52.0); Hemoglobin 13.6 g/dL (14.0-18.0); Immature Granulocyte Absolute 0.02 K/mm3 (0.00-0.031); Immature Granulocyte Percent A 0.2 % (0-0.5); Immature Platelet Fraction Pct 7.5 % (0.9-11.2); Lymphocytes Absolute Auto 2.12 K/mm3 (0.9-3.2); Lymphocytes Percent Auto 24.3 % (18.3-44.2); Mean Corpuscular HGB Conc 34.3 g/dl (32-36); Mean Corpuscular Hemoglobin 34.3 pg (26-34); Mean Corpuscular Volume 99.7 fl (80-100); Mean Platelet Volume 10.7 fl (7.4-10.4); Monocytes Absolute Auto 0.7 K/mm3 (0.1-0.6); Monocytes Percent Auto 7.9 % (2.6-8.5); Neutrophils Absolute Auto 5.8 K/mm3 (1.3-6.7); Neutrophils Percent Auto 66.5 % (45.5-73.1); Platelet Count Result 105 k/mm3 (150-375); Red Blood Count 3.97 M/mm3 (4.6-6.20); Red Cell Distribution Width 15.4 % (11.5-14.5); White Blood Count 8.7 K/mm3 (4.5-10.0)
[2023-11-25 00:38] LABS: INR 1.1; Partial Thromboplastin Time 31.9 Seconds (22.3-36.8); Prothrombin Time 14.7 Seconds (11.1-14.7)
[2023-11-25 00:41] LABS: Alanine Aminotransferase 22 U/L (6-50); Albumin Level 4.1 g/dL (3.5-5.1); Alkaline Phosphatase 108 U/L (38-126); Anion Gap 10 mmol/L (4-12); Aspartate Amino Transferase 40 U/L (17-59); Bilirubin,Total 0.8 mg/dL (0.2-1.3); Blood Urea Nitrogen 14 mg/dL (9-20); Calcium 9.1 mg/dL (8.4-10.2); Carbon Dioxide 29 mmol/L (22-30); Chloride 103 mmol/L (98-107); Estimated CRCL calculation 56 ml/min; Estimated Glomerular Filt Rate > 60; Glucose 96 mg/dL (65-110); Potassium 2.9 mmol/L (3.4-5.0); Sodium 142 mmol/L (137-145)
[2023-11-25 01:23] VITALS: BP 131/82; PULSE 78; RESP 22; O2SAT 99
[2023-11-25 01:30] VITALS: BP 145/88; PULSE 77; RESP 24; O2SAT 98
[2023-11-25 01:47] VITALS: BP 156/82; PULSE 80; RESP 18; O2SAT 100
[2023-11-25] MEDS: POTASSIUM CHLORIDE 20 MEQ ER TABLET 40 MEQ PO (02:13)
--- NOTE | 2023-11-25 02:14 | ED.GENADULT ---
HPI - General Adult General Chief complaint: GI Bleed Stated complaint: vomiting blood/depression Time Seen by Provider: 11/25/23 01:25 History of Present Illness HPI narrative: This is a 53-year-old male presenting to ED for bleeding. Patient had been admitted to the hospital multiple times over last 2 days and kept leaving AMA. He had been diagnosed with esophageal ulcer and placed on PPI and Carafate with follow-up with GI. Patient was loitering outside the of the hospital and then was brought into the ED for eval. Patient admits to drinking alcohol after leaving AMA because he broke up with his girlfriend. He says he has not had any bleeding since he left the ED. He has no complaints at this time. Patient states when he leaves the ED he is going to go to a hotel near his work to stay. Related Data Allergies Allergy/AdvReac Type Severity Reaction Status Date / Time iohexol AdvReac Mild Nausea Verified 11/25/23 00:14 [From contrast - CT, X-RAY] PMF Past Medical History Medical History (Updated 11/25/23 @ 02:25 by Brian James MD) Alcohol abuse Tobacco abuse Ulcerative esophagitis Surgical History Surgical History No history of previous surgery Family History Family History Mother Diabetes mellitus Social History Social History Social History: Surrogate medical decision maker: sally Burden. Code status: Full code. Smoking packs per day: 1 Smoking cigarettes per day: 20.0 Years smoked: 40 Smoking pack-years: 40.00 Smoking status: Current every day smoker Tobacco type: cigarettes Alcohol intake: current Drinks per week: 28 Alcohol use details: Drinks a pint of fireball a day. Substance use: current Substance use type: marijuana Other substance usage details: smokes marijuana daily Do You Feel Safe in your Home?: Yes Lack of Transportation: YES Lack of Food: Sometimes True Current Housing: I Have Housing Concerned About Future Housing: YES Difficulty Paying Gas/Electric Bills: No Difficulty Paying for Meds: No Currently Unemployed: YES Education: Grade School Difficulty w/ Childcare or Family Care: No Additional living arrangements comments: Lives in [place] with sally. Additional occupation/education comments: Works in sales at [employer]. Spiritual care concerns: No Exam Narrative: APPEARANCE: No apparent distress. A&O x4 Head: atraumatic. EYES: EOMI, NOSE: Atraumatic NECK: Trachea midline RESPIRATORY: No increased rate of breathing clear to auscultation CARDIOVASCULAR: RRR, ABDOMINAL: Non-distended Soft nontender no guarding or rebound MUSCULOSKELETAl: No obvious deformities NEURO: Alert. Moving 4/4 extremities walking with a steady gait SKIN:: Warm, dry. Normal color PSYCHIATRIC: Normal affect Course Vital Signs Vital signs: Vital Signs Temperature 98.2 F 11/25/23 00:08 Pulse Rate 86 11/25/23 00:08 Respiratory Rate 11 L 11/25/23 00:08 Blood Pressure 153/91 H 11/25/23 00:08 Pulse Oximetry 98 11/25/23 00:08 Oxygen Delivery Room Air 11/25/23 00:08 Temperature 98.2 F 11/25/23 00:08 Pulse Rate 80 11/25/23 01:47 Respiratory Rate 18 11/25/23 01:47 Blood Pressure 156/82 H 11/25/23 01:47 Pulse Oximetry 100 11/25/23 01:47 Oxygen Delivery Room Air 11/25/23 00:08 Medical Decision Making MDM Narrative Medical decision making narrative: -Course:53-year-old male presenting to the ED for alcohol intoxication. Patient left the hospital AMA after being diagnosed with esophageal ulcer. He was then brought back into the ED by security since he was loitering outside the hospital. At this time the patient has no complaints. His hemoglobin has continued to trend up. He has no active bleeding at
== END 2023-11-25 02:32 | disposition home or self-care (01) ==
PROVIDERS: Emergency Provider Emergency Medicine; PCP Internal Medicine
DX: F10.20 Alcohol dependence, uncomplicated (principal); Y90.9 Presence of alcohol in blood, level not specified; Z59.01 Sheltered homelessness; K22.10 Ulcer of esophagus without bleeding; F17.210 Nicotine dependence, cigarettes, uncomplicated
CPT/HCPCS: 36415; 80053; 85025; 85055; 85610; 85730; 86850; 86900; 86901; 99283; A9270

== ENCOUNTER 2024-09-22 17:30 | Emergency (ER) | payer MEDICAID, SELFPAY ==
[2024-09-22 17:31] VITALS: BP 119/79; PULSE 108; RESP 16; TEMP 36.1; O2SAT 97
--- OUTSIDE RECORDS SUMMARY | 2024-09-22 17:32 | XMS_ITS ---
Author Organization [facility] Address [address] [place] [address] Care Team Providers Care Beautician Apprentice Name Role Phone Allan Armenta Primary Care Provider REASON FOR VISIT lisiniopril refill request, appt needed Medications Medication SIG (Take, Route, Fr equency, Duration) Notes Start Date End Date Status Lisinopril 5 MG 1 tablet Orally Once a day for 30 days 03/01/2024 Active Social History Sex Assigned At : Social History Observation Description Sex Assigned At Male Encounters Encounter Location Date Provider Diagnosis [address] [place] [address] 04/25/2024 Allan Armenta Hypertension I10 Assessments Encounter Date Diagnosis (ICD Code) Assessment Notes Treatment Notes Treatment Clinical Notes Section Notes 04/25/2024 Hypertension (ICD-10 - I10) Plan Of Treatment Medication Medication Name Sig Start Date Stop Date Notes Lisinopril 5 MG 1 tablet Orally Once a day for 30 days Progress Notes * Corey CONTI CDOB: 8 (54 yo M)Acc No.[id number]:04/25/2024 Patient: Coty BLANDONCorey :1970 A ge:54 Y S ex:Male Address:[address], [place], [address] * Refills Refill Lisinopril Tablet, 5 MG, Orally, 30, 1 tablet, Once a day, 30 days, Refills=0 * true * Date: Generated for Lulu payne/João/Yesenia on: 0 09/22/2024 05:32 PM CDT
--- OUTSIDE RECORDS SUMMARY | 2024-09-22 17:32 | XMS_ITS | Patient Health Record ---
Author Organization [facility]ly [facility] Address [address] [place] [address] Care Team Providers Care Steam Turbine Assembler Name Role Phone Kathi Allan Primary Care Provider [phone] Nabil Matos Unavailable [phone] Zara Hassan Unavailable [phone] Allergies No Known Allergies Results Component Value Reference Range Notes Xray : Wrist, left Reviewed date:12/22/2023 10:39:23 AM Interpretation: Performing Lab: Notes/Report: HIV Screen *HIV 1, 2 Ab, p24 Ag ([id number]) Reviewed date:11/08/2023 11:13:32 AM Interpretation: Performing Lab:[id number], [address] [facility], Phone - [phone], Director - [facility] Notes/Report: HIV Ab/p24 Ag Screen Non Reactive Non Reactive HIV Negative HIV-1/HIV-2 antibodies and HIV-1 p24 antigen were NOT detected. There is no laboratory evidence of HIV infection. Hemoglobin A1c* Reviewed date:11/08/2023 11:13:46 AM Interpretation: Performing Lab:[id number], [address] [facility], Phone - [phone], Director - [facility] Notes/Report: Hemoglobin A1c 5.5 4.8-5.6 % . Prediabetes: 5.7 - 6.4 Diabetes: >6.4 Glycemic control for adults with diabetes: <7.0 Magnesium, Serum* Reviewed date:11/08/2023 11:13:56 AM Interpretation: [facility], Phone - [phone], Director - [facility] Notes/Report: Magnesium 2.1 1.6-2.3 mg/dL CBC With Differential/Platel et* Reviewed date:11/08/2023 11:14:07 AM Interpretation: Performing Lab:[facility] [address] [place] [address], Phone - [phone], Director - [facility] Notes/Report: WBC 11.2 3.4-10.8 x10E3/uL RBC 4.38 4.14-5.80 x10E6/uL Hemoglobin 14.9 13.0-17.7 g/dL Hematocrit 44.0 37.5-51.0 % MCV 101 79-97 fL MCH 34.0 26.6-33.0 pg MCHC 33.9 31.5-35.7 g/dL RDW 12.8 11.6-15.4 % Platelets 215 150-450 x10E3/uL Neutrophils 59 Not Estab. % Lymphs 27 Not Estab. % Monocytes 9 Not Estab. % Eos 4 Not Estab. % Basos 1 Not Estab. % Neutrophils (Absolute) 6.5 1.4-7.0 x10E3/uL Lymphs (Absolute) 3.1 0.7-3.1 x10E3/uL Monocytes(Absolute) 1.0 0.1-0.9 x10E3/uL Eos (Absolute) 0.5 0.0-0.4 x10E3/uL Baso (Absolute) 0.1 0.0-0.2 x10E3/uL Immature Granulocytes 0 Not Estab. % Immature Grans (Abs) 0.0 0.0-0.1 x10E3/uL Hepatitis B Surface Antigen (HBsAg Screen) Reviewed date:11/08/2023 11:14:17 AM Interpretation: Performing Lab:[facility] [address] [place] [address], Phone - [phone], Director - [facility] Notes/Report: HBsAg Screen Negative Negative Hepatitis C Virus Antibody w /Rflx to Quantitative Real-time PCR ([id number]) Reviewed date:11/08/2023 11:14:26 AM Interpretation: Performing Lab:[facility] [address] [place] [address], Phone - [phone], Director - [facility] Notes/Report: HCV Ab Non Reactive Non Reactive Interpretation: Not infected with HCV unless early or acute infection is suspected (which may be delayed in an immunocompromised individual), or other evidence exists to indicate HCV infection. Lipid Panel* Reviewed date:11/08/2023 11:14:41 AM Interpretation: Performing Lab:[facility] [address], Phone - [phone], Director - [facility] Notes/Report: Cholesterol, Total 193 100-199 mg/dL Triglycerides 149 0-149 mg/dL HDL Cholesterol 42 >39 mg/dL VLDL Cholesterol Marco 27 5-40 mg/dL LDL Chol Calc (NIH) 124 0-99 mg/dL CMP 14 Comprehensive Metabol ic Panel* Reviewed date:11/13/2023 04:39:21 PM Interpretation: Performing Lab:[facility] [address], Phone - [phone], [facility] Notes/Report: Glucose 98 70-99 mg/dL BUN 13 6-24 mg/dL Creatinine 0.93 0.76-1.27 mg/dL eGFR 97 >59 mL/min/1.73 BUN/Creatinine Ratio 14 9-20 Sodium 141 134-144 mmol/L Potassium 3.0 3.5-5.2 mmol/L Chloride 100 96-106 mmol/L Carbon Dioxide, Total 26 20-29 mmol/L Calcium 9.4 8.7-10.2 mg/dL Protein, Total 7.2 6.0-8.5 g/dL Albumin 4.5 3.8-4.9 g/dL Globulin, Total 2.7 1.5-4.5 g/dL A/G Ratio 1.7 1.2-2.2 Bilirubin, Total 0.5 0.0-1.2 mg/dL Alkaline Phosphatase 104 44-121 IU/L AST (SGOT) 42 0-40 IU/L ALT (SGPT) 29 0-44 IU/L TSH Rfx on Abnormal to Free T4 Reviewed date:11/13/2023 04:39:30 PM Interpretation: Performing Lab:[facility] [address], Phone - [phone], Director - [facility] Notes/Report: TSH 1.900 0.450-4.500 uIU/mL Reason For Referral No Information Medications Medication SIG (Take, Route, Frequency, Duration) Notes Start Date End Date Status Melatonin 10 MG 1 tablet Orally daily for 30 days at bedtime 11/15/2023 Active Acamprosate Calcium 333 MG 2 tablets Orally Three times a day for 30 days 09/18/2023 Not-Taki ng Folic Acid 1 MG 1 tablet Orally Once a day Active Vitamin B1 100 MG 1 tablet Orally Once a day Active Doxepin HCl 3 MG 2 tablets at bedtime Orally Once a day for 30 days 03/28/2024 Active Lisinopril 5 MG 1 tablet Orally Once a day for 30 days 03/01/2024 Active Social History Tobacco Use: Social History Observation Description Date Details (start date - stop date) Current Smoker NA - NA Sex Assigned At : Social History Observation Description Sex Assigned At Male PRAPARE Question Answer Notes What country are you from? [place] Are you a refugee? No In the past year, have you b een afraid of your partner or ex-partner? No Do you feel physically and e motionally safe where you currently live? Yes In the past year have you sp ent more than 2 nights in a row in a care home, assisted, [place] [facility] [place] center, or juvenile correctional facility? No How stressed are you? Stress is when someone feels tense, nervous, anxious, or can\t sleep at night because their mind is troubled Somewhat How often do you see or talk to people that you care about and feel close to? (For example: talking to friends on the phone, visiting friends or family, going to latter day or club meetings) More than 5 times a week Has lack of transportation k ept you from medical appointments, meetings, work or from getting things needed for daily living? No In the past year, have you o r any family members you live with been unable to get any of the following when it was really needed? Check all that apply I do not have problems meeting my needs What is your current work situation? Unemployed and seeking work What is the highest level of school that you have finished? High school diploma or GED Are you worried about losing your housing? No What is your current housing situation? I have h marisa Date Completed/Updated: 09/08/2023 PRAPARE Score: 0 Tobacco Control (Standard) Question Answer Notes Tobacco use: Current smoker How often do you smoke cigarettes? Every day How many cigarettes a day do you smoke? 05-01 Problems Problem Type SNOMED Code ICD Code Onset Dates Problem Status W/U Status Risk Notes Problem Hypokalemia (79435599) Hypokalemia (E87.6) Active confirmed Problem Tobacco user (189377961) Nicotine dependence, unspecified, uncomplicated (F17.200) Active confirmed Problem Hypertension (09975075) Hypertension (I10) Active confirmed Problem Hematuria (74216984) Hematuria (R31.9) Active confirmed Problem Alcohol use disorder (5426220527) Alcohol use disorder (F10.99) Active confirmed Problem 624501380 Insomnia, unspecified type (G47.00) Active confirmed Problem Carpal tunnel syndrome of left wrist (954483872363306 ) Carpal tunnel syndrome of left wrist (G56.02) Active confirmed Vital Signs Heart Rate 78 /min 03/28/2024 Respiratory Rate 14 /min 03/28/2024 Blood pressure diastolic 84 mm Hg 03/28/2024 Oximetry 98 % 03/28/2024 Height 68 in 03/28/2024 Blood pressure systolic 164 mm Hg 03/28/2024 Weight 128.5 lbs 03/28/2024 BMI 19.54 kg/m2 03/28/2024 Encounters Encounter Location Date Provider Diagnosis [address] [place] [address] 10/30/2023 Allan Armenta Exposure to potentia l infection Z20.9 ; Left wrist pain M25.532 ; Carpal tunnel syndrome of left wrist G56.02 ; Metabolic syndrome E88.810 ; Dorsalgia of lumbosacral region M54.50 ; Hypokalemia E87.6 ; Alcohol use disorder F10.99 ; Hematuria R31.9 ; Nicotine dependence, unspecified, uncomplicated F17.200 and Fatigue R53.83 [facility] [address] [place] [address] 03/01/2024 Allan Armenta Hypertension I10 ; Alcohol use disorder F10.99 and Hypokalemia E87.[address] [place] [address] 03/28/2024 Nabil Matos Hypertension I10 ; Insomnia, unspecified type G47.00 and Nicotine dependence, unspecified, uncomplicated F17.[address] [address] 11/13/2023 Allan Armenta [address] [place] [address] 02/26/2024 Allan Armenta [address] [place] [address] 03/04/2024 Allan Armenta [address] [place] [address] 03/06/2024 Allan Armenta [facility] [address] [facility] [address] 03/26/2024 Zara Hassan [address] [place] [address] 04/09/2024 Nabil Matos [address] [place] [address] 04/17/2024 Nabil Matos Insomnia, unspecifie d type G47.[address] [place] [address] 04/25/2024 Allan Armenta Hypertension I10 [address] [place] [address] 11/14/2023 Allan Armenta [facility] [address] [facility] [address] 02/15/2024 Allan Armenta Hypokalemia E87.6 [facility] [address] [place] [address] 03/04/2024 Allan Armenta [facility] [address] [place] [address] 04/01/2024 Nabil Matos Assessments Encounter Date Diagnosis (ICD Code) Assessment Notes Treatment Notes Treatment Clinical Notes Section Notes 03/01/2024 Hypertension (ICD-10 - I10) 03/01/2024 Alcohol use disorder (ICD-10 - F10.99) 02/15/2024 Hypokalemia (ICD-10 - E87.6) 04/17/2024 Insomnia, unspecified type (ICD-10 - G47.00) 03/28/2024 Hypertension (ICD-10 - I10) Increase medication as prescribed, f/u in 1 month, monitor BP readings at home. 03/28/2024 Insomnia, unspecified type (ICD-10 - G47.00) No help from past use of melatonin or trazodone. Hx of alcohol abuse, would avoid ambien, will try doxepin, reassess at next f/u. 10/30/2023 Carpal tunnel syndrome of left wrist (ICD-10 - G56.02) USE WRIST SPLINT WHILE RESTING. 10/30/2023 Left wrist pain (ICD-10 - M25.532) 10/30/2023 Exposure to potential infection (ICD-10 - Z20.9) 04/25/2024 Hypertension (ICD-10 - I10) 03/01/2024 Hypokalemia (ICD-10 - E87.6) 10/30/2023 Dorsalgia of lumbosacral region (ICD-10 - M54.50) HEAT, TYLENOL, [employer] B[employer]ICS. 10/30/2023 Metabolic syndrome (ICD-10 - E88.810) 10/30/2023 Hypokalemia (ICD-10 - E87.6) 03/28/2024 Nicotine dependence, unspecified, uncomplicated (ICD-10 - F17.200) 10/30/2023 Alcohol use disorder (ICD-10 - F10.99) 10/30/2023 Hematuria (ICD-10 - R31.9) 10/30/2023 Nicotine dependence, unspecified, uncomplicated (ICD-10 - F17.200) 10/30/2023 Fatigue (ICD-10 - R53.83) Plan Of Treatment No Information Insurance Providers Payer Name Payer Address Payer Phone Subscriber Number Group Number Insured Name Patient Relationship to Insured Coverage Start Date Coverage End Date MEDICAID [address] [place] [address] [id number] Corey Johnson Self - patient is the insured [address] [place], [place] [address] Claims Department [address] [place] [address] [phone] [id number] Corey Johnson Self - patient is the insured 4 Medical (General) History Medical History History ICD Code alcohol use disorder Hospitalization History Reason Date(Month/Year) [facility] 2023 [facility] 2023
--- OUTSIDE RECORDS SUMMARY | 2024-09-22 17:32 | XMS_ITS ---
Author Organization [facility] Address [address] [place] [address] Care Team Providers Care Metal Or Wood Blocker Name Role Phone Allan Armenta Primary Care Provider Nabil Matos [phone] REASON FOR VISIT message Social History Sex Assigned At : Social History Observation Description Sex Assigned At Male Encounters Encounter Location Date Provider Diagnosis [address] [place] [address] 04/09/2024 Nabil Matos Plan Of Treatment No Information Progress Notes * Corey CONTI CDOB: 8 (54 yo M)Acc No.[id number]:04/09/2024 Patient: Coty Corey BLANDON :1970 A ge:54 Y S ex:Male Address:[address], [place], [address] * true * Date: Generated for Printi ng/Faxing/eTransmitting on: 0 09/22/2024 05:32 PM CDT
--- OUTSIDE RECORDS SUMMARY | 2024-09-22 17:33 | XMS_ITS ---
[facility] Organization [facility] Address [address] [place] [address] Care Team Providers Care Toddler Lead Teacher Name Role Phone Allan Armenta Primary Care Provider [phone] Nabil Matos [phone] REASON FOR VISIT doxepin 3 mg approved Medications Medication SIG (Take, Route, Fr equency, Duration) Notes Start Date End Date Status Doxepin HCl 3 MG 2 tablets at bedtime Orally Once a day for 30 days 03/28/2024 Active Social History Sex Assigned At : Social History Observation Description Sex Assigned At Male Encounters Encounter Location Date Provider Diagnosis [address] [place] [address] 04/17/2024 Nabil Matos Insomnia, unspecified type G47.00 Assessments Encounter Date Diagnosis (ICD Code) Assessment Notes Treatment Notes Treatment Clinical Notes Section Notes 04/17/2024 Insomnia, unspecified type (ICD-10 - G47.00) Plan Of Treatment Medication Medication Name Sig Start Date Stop Date Notes Doxepin HCl 3 MG 2 tablets at bedtime Orally Once a day for 30 days 03/28/2024 Progress Notes * Corey CONTI CDOB: [birth year] (54 yo M)Acc No.[id number]:04/17/2024 Patient: Coty Corey BLANDON :1970 A ge:54 Y S ex:Male Address:[facility] [address] [place], [address] * Refills Refill Doxepin HCl Tablet, 3 MG, Orally, 60 Tablet, 2 tablets at bedtime, Once a day, 30 days, Refills=0 * true * Date: Generated for Lulu payne/João/Yesenia on: 0 09/22/2024 05:32 PM CDT
--- OUTSIDE RECORDS SUMMARY | 2024-09-22 17:33 | XMS_ITS | Clinical Summary ---
Author Organization [facility] Address [address] [place] [address] Care Team Providers Care Kitchen Chef Name Role Phone No, Physician Primary Care Provider [phone] Allergies No known active allergies Medications folic acid (FOLVITE) 1 mg tablet Take 1 tablet (1 mg total) by mouth daily 30 tablet 09/17/2023 Active multivit zomjownr-qleo-FF -calcium (THERA-M) 9 mg iron-400 mcg tablet Take 1 tablet by mouth daily 30 tablet 09/17/2023 Active thiamine (VITAMIN B1) 100 mg tablet Take 1 tablet (100 mg total) by mouth daily 30 tablet 09/17/2023 Active Active Problems Problem Noted Date Diagnosed Date Folate deficiency 08/17/2023 Alcohol withdrawal, uncomplicated 08/16/2023 Resolved Problems Problem Noted Date Diagnosed Date Resolved Date Hypokalemia 09/16/2023 09/16/2023 Hiccups 09/15/2023 09/16/2023 Social History Tobacco Use Types Packs/Day Years Used Date Smoking Tobacco: Every Day Cigarettes 1 31.1 Started: 08/10/1993 Tobacco Cessation:Ready to Q uit: Not Asked; Counseling Given: Not Answered Alcohol Use Standard Drinks/Week Comments Not Currently 0 (1 standard drink = 0.6 oz pur e alcohol) AUDIT-C Answer Date Recorded Q1: How often do you have a drink containing alcohol? 4 or more times a week 08/16/2023 Q2: How many drinks containi ng alcohol do you have on a typical day when you are drinking? 5 or 6 Q3: How often do you have si x or more drinks on one occasion? Monthly 08/16/2023 Personal Safety Answer Date Recorded Have you ever been in or are you currently in a harmful physical or emotional relationship or is someone making you feel afraid or unsafe? 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 Gender Identity Not on file Sexual Orientation Not on file Obstetrics History Last Filed Vital Signs Vital Sign Reading Time Taken Comments Blood Pressure 133/60 09/16/2023 2:45 PM CDT Pulse 88 09/16/2023 2:45 PM CDT Temperature 36.7 C (98.1 F) 09/16/2023 2:45 PM CDT Respiratory Rate 16 09/16/2023 2:45 PM CDT Oxygen Saturation 98% 09/16/2023 2:45 PM CDT Inhaled Oxygen Concentration - - Weight 58.1 kg (128 lb 1.4 oz) 09/15/2023 9:19 P M CDT Height 172.7 cm (5' 8 ) 09/15/2023 9:19 PM CDT Body Mass Index 19.48 09/15/2023 9:19 PM CDT Plan of Treatment Health Maintenance Due Date Last Done Comments Colon Cancer Screening-Colonoscopy 1970 Depression Screening 1970 Hepatitis C Screening 1970 Prostate Cancer Screening-PSA 1970 DTaP/Tdap/Td Vaccine (1 - Tdap) 01/04/1979 Hepatitis B Screening 01/04/1986 Regular Well Visit/Exam 18-64 01/04/1986 Pneumococcal vaccine <65 (1 of 2 - PCV) 01/04/1987 Lung Cancer Screening 01/04/2018 Zoster Vaccine (1 of 2) 01/04/2018 Influenza Vaccine (Season Ended) 2025 05/10/20 22 Insurance IDPA Advance Directives For more information, please contact: [phone] * Full Code (Latest Code Status on File) Date Activated Date Inactivated Comments 09/15/2023 10:32 PM 09/16/2023 8:45 PM * Full Code Date Activated Date Inactivated Comments 09/15/2023 7:50 PM 09/15/2023 10:32 PM * Full Code Date Activated Date Inactivated Comments 08/16/2023 1:28 PM 08/19/2023 6:18 PM Care Teams Kitchen Chef Relationship Specialty Start Date End Date No, Physician PCP - General 02/13/22
--- OUTSIDE RECORDS SUMMARY | 2024-09-22 17:33 | XMS_ITS | Clinical Summary ---
Author Organization [facility] Address [address] [place] [address] Phone Care Team Providers Care Kit Planner Name Role Phone Unavailable Primary Care Provider Unavailabl e Allergies No known active allergies Medications amLODIPine (NORVASC) 5 mg tablet Take 1 Tablet (5 mg) by mouth daily. 30 Tablet 2 02/08/2024 Active folic acid (FOLVITE) 1 mg tablet Take 1 Tablet (1 mg) by mouth daily. 30 Tablet 02/08/2024 Active pantoprazole (PROTONIX) 40 mg Tablet, Delayed Release (E.C.) Take 1 Tablet (40 mg) by mouth daily before breakfast. 30 Tablet 02/08/2024 Active thiamine mononitrate (VITAMIN B-1) 100 mg tablet Take 1 Tablet (100 mg) by mouth daily. 30 Tablet 1 02/08/2024 Active levETIRAcetam (Keppra) 500 mg tablet Take 1 Tablet (500 mg) by mouth 2 times daily. 60 Tablet 2 02/08/2024 Active Active Problems Problem Noted Date Diagnosed Date Seizure-like activity 02/06/2024 Seizure disorder 02/06/2024 Alcohol abuse, in remission 02/06/2024 Leukocytosis (leucocytosis) 02/06/2024 Lactic acidosis 02/06/2024 Alcohol withdrawal seizure with deliriumApril 20 24 at [facility] 10/04/2023 Alcoholic gastritis 01/03/2019 AF (atrial fibrillation) 11/30/2018 Cigarette dependence 09/24/2017 Severe protein-calorie malnutrition 09/22/2017 Alcohol abuse 09/21/2017 UTI (urinary tract infection) 09/21/2017 Major depressive disorder, recurrent, mild 09/21 Alcohol dependence with withdrawal delirium 09/10 Traumatic adrenal hematoma 03/17/2014 Musculoskeletal pain 03/17/2014 Renal hematoma, right 03/17/2014 Contusion of chest 03/17/2014 Injury resulting from fall from height 4 Overview (03/16/2014): 10-12ft ladder Acute metabolic encephalopathy Hypokalemia Acute renal failure GERD with esophagitis Nausea & vomiting Liver injury Thrombocytopenia Electrolyte imbalance Gilbert's syndrome Abnormal finding on GI tract imaging Fatty liver, alcoholic ETOH abuse Abdominal pain Benign essential HTN Encounters Date Type Department Care Team Description 09/10/2024 External Device Data [facility] ABSTRACTION Provider, Abstract 08/19/2024 External Device Data [facility] ABSTRACTION Provider, Abstract 07/31/2024 External Device Data [facility]STRACTION Provider, Abstract 07/09/2024 External Device Data [facility]STRACTION Provider, Abstract 07/02/2024 External Device Data [facility] ABSTRACTION Provider, Abstract from Last 3 Months Family History Medical History Relation Name Comments No Known Problems Brother 6 No Known Problems Father No Known Problems Mother Relation Name Status Comments Brother 6 Alive Father Alive Mother Alive Social History Tobacco Use Types Packs/Day Years Used Date Smoking Tobacco: Every Day Cigarettes 1 20 Smokeless Tobacco: Never Tobacco Cessation:Ready to Q uit: Yes; Counseling Given: Yes Alcohol Use Standard Drinks/Week Comments Yes 0 (1 standard drink = 0.6 oz pur e alcohol) 1/2 pint to 1/5 daily Feeling Safe Answer Date Recorded Are you in a relationship wi th someone who hurts you emotionally and/or physically? Patient unable to answer 02/06/2024 Food Insecurity Answer Date Recorded Social/Environmental Concerns Patient unable to answer 02/06/2024 Transportation Needs Answer Date Record ed Social/Environmental Concerns Patient unable to answer 02/06/2024 Sex and Gender Information Value Date Recorded Sex Assigned at Not on file Legal Sex Male 10:42 PM CDT Gender Identity Not on file Sexual Orientation Not on file Last Filed Vital Signs Vital Sign Reading Time Taken Comments Blood Pressure 133/73 02/08/2024 11:00 AM CDT Pulse 91 02/08/2024 11:00 AM CDT Temperature 36.8 C (98.3 F) 02/08/2024 11:00 AM CDT Respiratory Rate 18 02/08/2024 11:00 AM CDT Oxygen Saturation 97% 02/08/2024 11:00 AM CDT Inhaled Oxygen Concentration - - Weight 59.9 kg (132 lb) 02/08/2024 5:00 AM CDT Height 172.7 cm (5' 8 ) 02/06/2024 4:28 PM CDT Body Mass Index 20.07 02/06/2024 4:28 PM CDT Plan of Treatment Health Maintenance Due Date Last Done Comments DTAP/TDAP/TD VACCINES (1 - Tdap) 01/04/1987 HEPATITIS B VACCINES (1 of 3 - 19+ 3-dose series) 12/11 COLORECTAL SCREENING 01/04/2013 Colorectal Cancer Screening 01/04/2013 FIT-DNA Q 3 years 01/04/2013 FIT/FOBT Q 1 year 01/04/2013 Flex Sig/CT Colonography Q 5 years 01/04/2013 Lung Cancer Screening 01/04/2018 ZOSTER VACCINE (1 of 2) 01/04/2018 INFLUENZA VACCINE (#1) 2024 Abdominal Aortic Aneurysm (AAA) Screening Completed 06/11/2015 Insurance [facility] [employer] [place] [address] MEDICAID Advance Directives For more information, please contact: [phone] * Full Code (Latest Code Status on File) Date Activated Date Inactivated Comments 02/06/2024 4:51 PM 02/08/2024 7:23 PM * Full Code Date Activated Date Inactivated Comments 01/03/2019 3:54 PM 01/04/2019 7:25 PM * Full Code Date Activated Date Inactivated Comments 11/30/2018 8:42 AM 12/01/2018 5:12 AM * Full Code Date Activated Date Inactivated Comments 09/20/2017 7:24 PM 09/24/2017 3:49 PM * Full Code Date Activated Date Inactivated Comments 03/17/2014 2:00 AM 03/19/2014 2:32 PM
--- OUTSIDE RECORDS SUMMARY | 2024-09-22 17:33 | XMS_ITS | Referral Summary ---
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 Gender Identity Not on file Sexual Orientation [...] 09/15/2023 9:19 PM CDT Plan of Treatment Not on file Insurance [employer] Advance Directives For more information, please contact: [phone] * Full Code (Latest Code Status on File) Date Activated Date Inactivated Comments 09/15/2023 10:32 PM 09/16/2023 8:45 PM * Full Code Date Activated Date Inactivated Comments 09/15/2023 7:50 PM 09/15/2023 10:32 PM * Full Code Date Activated Date Inactivated Comments 08/16/2023 1:28 PM 08/19/2023 6:18 PM Care Teams Industrial Service Technician Relationship Specialty Start Date End Date No, Physician PCP - General 02/13/22
--- NOTE | 2024-09-22 17:46 | PC.NURSE ---
Patient deciding to leave, walked out of ED while holding left side ribs, gait steady
--- OUTSIDE RECORDS SUMMARY | 2024-09-22 18:11 | XMS_ITS | Clinical Summary ---
Author Organization [facility] Address [address] [place] [address] Phone Care Team Providers Care Parts Lister Name Role Phone Unavailable Primary Care Provider [...] withdrawal seizure with deliriumApril 20 24 at [facility] 10/04/2023 Alcoholic gastritis 01/03/2019 AF (atrial fibrillation) [...] Screening Completed 06/11/[address] [facility] [employer] [place] [address] MEDICAID Advance Directives For more information, please contact: [phone] * Full Code (Latest Code Status on [...]
--- OUTSIDE RECORDS SUMMARY | 2024-09-22 18:11 | XMS_ITS | Referral Summary ---
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
--- OUTSIDE RECORDS SUMMARY | 2024-09-22 18:11 | XMS_ITS | Clinical Summary ---
Author Organization 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
== END 2024-09-22 17:46 | disposition left against medical advice (07) ==
LOC: ANHED 18:09
PROVIDERS: PCP Internal Medicine
DX: R07.89 Other chest pain (principal)
CPT/HCPCS: 99199

== ENCOUNTER 2024-12-24 12:29 | Outpatient (CLI) | payer OTHER, SELFPAY ==
--- NOTE | ~2024-12-24 | XR_ITS ---
Lumbosacral Spine: AP and lateral views Clinical History: Pain Findings: There is mild dextroscoliosis. No fracture evident. Probable minimal grade 1 retrolisthesis of L3 over L4. There is severe degenerative disc narrowing L3-L4, L4-L5, and L5-S1. There is moderat e to severe degenerative disc narrowing at L1-L2. There is advanced facet arthropathy throughout the lumbar spine, especially from L3 through S1. The sacroiliac joints are normally outlined. Impression: Severe degenerative spondylosis overall, as detailed above. Mild dextro scoliosis. Reviewed, dictated and finalized at location M. Impression: Severe degenerative spondylosis overall, as detailed above. Mild dextro scoliosis.
--- OUTSIDE RECORDS SUMMARY | 2024-12-24 12:37 | XMS_ITS | Referral Summary ---
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 Gender Identity Not on file Sexual Orientation [...] P M CDT Height 172.7 cm (5' 8) 09/15/2023 9:19 PM CDT Body Mass Index 19.48 09/15/2023 9:19 PM CDT Plan of Treatment Not on file Insurance [employer] Advance Directives For more information, please contact: [phone] * Full Code (Latest Code Status on File) Date Activated Date Inactivated Comments 09/15/2023 10:32 PM 09/16/2023 8:45 PM * Full Code Date Activated Date Inactivated Comments 09/15/2023 7:50 PM 09/15/2023 10:32 PM * Full Code Date Activated Date Inactivated Comments 08/16/2023 1:28 PM 08/19/2023 6:18 PM Care Teams Hi Teacher Relationship Specialty Start Date End Date No, Physician PCP - General 02/13/22
--- OUTSIDE RECORDS SUMMARY | 2024-12-24 12:37 | XMS_ITS | Patient Health Record ---
Author Organization [facility] Address [address] [place] [address] Care Team Providers Care Bilingual Speech Language Pathologist Name Role Phone Allan Armenta Primary Care Provider [phone] Nabil Matos Unavailable [phone] Zara Hassan Unavailable [phone] Allergies No Known Allergies Reason For Referral No Information Medications Medication SIG (Take, Route, Frequency, Duration) Notes Start Date End Date Status Melatonin 10 MG 1 tablet Orally daily; Duration: 30 days at bedtime 11/15/2023 Active Acamprosate Calcium 333 MG 2 tablets Orally Three times a day; Duration: 30 days 09/18/2023 Not-Taking Folic Acid 1 MG 1 tablet Orally Once a day Active Vitamin B1 100 MG 1 tablet Orally Once a day Active Doxepin HCl 3 MG 2 tablets at bedtime Orally Once a day; Duration: 30 days 03/28/2024 Active Lisinopril 5 MG 1 tablet Orally Once a day; Duration: 30 days 03/01/2024 Active Social History Tobacco Use: Social History Observation Description Date Details (start date - stop date) Current Smoker NA - NA Sex Assigned At : Social History Observation Description Sex Assigned At Male PRAPARE Question Answer Notes Date Completed/Updated: 09/08/2023 What is your current housing situation? I have h ousing Are you worried about losing your housing? No What is the highest level of school that you have finished? High school diploma or GED What is your current work situation? Unemployed and seeking work In the past year, have you o r any family members you live with been unable to get any of the following when it was really needed? Check all that apply I do not have problems meeting my needs Has lack of transportation k ept you from medical appointments, meetings, work or from getting things needed for daily living? No How often do you see or talk to people that you care about and feel close to? (For example: talking to friends on the phone, visiting friends or family, going to sabianist or club meetings) More than 5 times a week How stressed are you? Stress is when someone feels tense, nervous, anxious, or can\t sleep at night because their mind is troubled Somewhat In the past year have you sp ent more than 2 nights in a row in a penitentiary, half-way, correction center, or juvenile correctional facility? No Do you feel physically and e motionally safe where you currently live? Yes In the past year, have you b een afraid of your partner or ex-partner? No Are you a refugee? No What country are you from? [facility] PRAPARE Score: 0 Tobacco Control (Standard) Question Answer Notes Tobacco use: Current smoker How often do you smoke cigarettes? Every day How many cigarettes a day do you smoke? 11-20 Problems Problem Type SNOMED Code ICD Code Onset Dates Problem Status W/U Status Risk Notes Problem Hypokalemia (61702653) Hypokalemia (E87.6) Active confirmed Problem Tobacco user (928657088) Nicotine dependence, unspecified, uncomplicated (F17.200) Active confirmed Problem Hypertension (81507513) Hypertension (I10) 4 Active confirmed Problem Hematuria (R31.9) Active confirmed Problem Alcohol use disorder (8186563402) Alcohol use disorder (F10.99) Active confirmed Problem Insomnia (238780027) Insomnia, unspecified type (G47.00) Active confirmed Problem Carpal tunnel syndrome of left wrist (619361899094714 ) Carpal tunnel syndrome of left wrist (G56.02) Active confirmed Vital Signs Heart Rate 78 /min 03/28/2024 Respiratory Rate 14 /min 03/28/2024 Blood pressure diastolic 84 mm Hg 03/28/2024 Oximetry 98 % 03/28/2024 Height 68 in 03/28/2024 Blood pressure systolic 164 mm Hg 03/28/2024 Weight 128.5 lbs 03/28/2024 BMI 19.54 kg/m2 03/28/2024 Encounters Encounter Location Date Provider Diagnosis [facility] [address] [place] [address] 03/01/2024 Allan Armenta Hypertension I10 ; Alcohol use disorder F10.99 and Hypokalemia E87.[address] [place] [address] 03/28/2024 Nabil Matos Hypertension I10 ; Insomnia, unspecified type G47.00 and Nicotine dependence, unspecified, uncomplicated F17.[address] [place] [address] 02/26/2024 Allan Armenta [address] [place] [address] 03/04/2024 Allan Armenta [address] [place] [address] 03/06/[address] [facility] [address] [facility] [place] [address] 03/26/2024 Zara Hassan [address] [place] [address] 04/09/2024 Nabil Matos [address] [place] [address] 04/17/2024 Nabil Matos Insomnia, unspecifie d type G47.[address] [place] [address] 04/25/2024 Allan Armenta Hypertension I10 [facility] [address] [place] [address] 02/15/2024 Allan Armenta Hypokalemia E87.6 [facility] [address] [place] [address] 03/04/[address] [facility] [address] [place] [address] 04/01/2024 Nabil Matos Assessments Encounter Date Diagnosis (ICD Code) Assessment Notes Treatment Notes Treatment Clinical Notes Section Notes 02/15/2024 Hypokalemia (ICD-10 - E87.6) 03/01/2024 Hypertension (ICD-10 - I10) 03/01/2024 Alcohol use disorder (ICD-10 - F10.99) 03/28/2024 Hypertension (ICD-10 - I10) Increase medication as prescribed, f/u in 1 month, monitor BP readings at home. 03/28/2024 Insomnia, unspecified type (ICD-10 - G47.00) No help from past use of melatonin or trazodone. Hx of alcohol abuse, would avoid ambien, will try doxepin, reassess at next f/u. 04/17/2024 Insomnia, unspecified type (ICD-10 - G47.00) 04/25/2024 Hypertension (ICD-10 - I10) 03/01/2024 Hypokalemia (ICD-10 - E87.6) 03/28/2024 Nicotine dependence, unspecified, uncomplicated (ICD-10 - F17.200) Plan Of Treatment No Information Insurance Providers Payer Name Payer Address Payer Phone Subscriber Number Group Number Insured Name Patient Relationship to Insured Coverage Start Date Coverage End Date MEDICAID [address] [place] [address] [id number] Corey Johnson Self - patient is the insured 4 [facility] Claims Department [address] [facility] [place] [address] [phone] [id number] Corey Johnson Self - patient is the insured 4 Medical (General) History Medical History History ICD Code alcohol use disorder Hospitalization History Reason Date(Month/Year) [facility] 2023 [facility] 2023
--- OUTSIDE RECORDS SUMMARY | 2024-12-24 12:37 | XMS_ITS | Clinical Summary ---
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 Gender Identity Not on file Sexual Orientation [...] <65 (1 of 2 - PCV) 01/04/1987 Zoster Vaccine (1 of 2) 01/04/2018 Influenza Vaccine (#1) 2025 05/10/2022 Insurance [employer] Advance Directives For more information, please contact: [phone] * Full Code (Latest Code Status on File) Date Activated Date Inactivated Comments 09/15/2023 10:32 PM 09/16/2023 8:45 PM * Full Code Date Activated Date Inactivated Comments 09/15/2023 7:50 PM 09/15/2023 10:32 PM * Full Code Date Activated Date Inactivated Comments 08/16/2023 1:28 PM 08/19/2023 6:18 PM Care Teams Drier Operator Relationship Specialty Start Date End Date No, Physician PCP - General 02/13/22
--- OUTSIDE RECORDS SUMMARY | 2024-12-24 12:37 | XMS_ITS | Continuity of Care Document ---
Author Organization [facility] Address [address] [place] [address] [place] [address] Phone Care Team Providers Care Care Services Manager Name Role Phone Rico Byers MD Unavailable Unavailable Allergies, Adverse Reactions, Alerts Substance Reaction Status Criticality No Known Allergies Active No Inform ation Procedures Procedure Date OFFICE/OUTPATIENT VISIT, EST Advance Directives Directive Yes / No Effective Date File Name No Information Encounters Encounter Description Practice Location Reason(s) For Visit Diagnoses Date Provider Providers Copied on Encounter OFFICE/OUTPAT IENT VISIT, EST [facility], [address] [place], [place], [id number], [place] tel:[phone] [facility] skin1 (chief complaint)s tomach pain1 (chief complaint)b ack pain1 (chief complaint) Lower abdominal painOther spondylosis, lumbar regionBenign lipomatous neoplasm of subcutaneous tissue of face Zeeshan Gómez. [address] [facility] [place], [place], [id number] , [place]. tel:[phone] Family History Family Member Type Diagnosis Age At Onset Father Problem of murder Brother Problem Alive and well Mother Problem 82 DM, alzheimer Payers Payer name Insurance type Covered republican ID Rowan kurtz(s) [facility] Plan CI [id number] Social History Type Description Quantity Date Captured Comments Alcohol Use Details Caffeine Use Details Unknown Tobacco Use Status Moderate cigarette smoker (10-19 cigs/day) Smoking Status Heavy tobacco smoker Smoking Tobacco Use Details Cigarette: Age Started: 14, Years Used 38 Cigarette: 15 Cigarettes per day, Pack Year: 30 Sex Male Vital Signs Date / Time: Height Weight BMI Pulse Rate Blood Pressure Temperature Respiratory Rate Body Surface Area Head Circumference BMI percentile Pulse Ox Inhaled Ox 3:28 PM 68.00 in 130.20 lbs 19.8 0 kg/m eter (2) 77 /min 130/80 mm[Hg] 98.1 F 16 /min Chief Complaint And Reason For Visit From encounter dated '12/03/2024 15:13'. skin1 (chief complaint). Description: Pt notices a large soft lesion under right eye for several years. Pt notices it getting bigger and he feels slightly pain and also is affecting his vision on right eye now. Pt denies any bleeding or scab stomach pain1 (chief complaint). Description: Pt c/o diffuse abdominal pain for several years Pt has frequent nausea, vomiting, Pt denies any constipation or diarrhea pt denies any blood in stool Pt states that he has constant cramp lower abdomen area .Pt denies any weight loss. Pt was heavy alcohol drinker and he has been cutting down for the past two months Pt denies any GERD. back pain1 (chief complaint). Description: Pt c/o chronic low back pain with some bilateral sciatica for several years pt denies any paresthesia pt denies any loss of bowel or bladder control or any saddle area paresthesia. Pt denies any injury Plan Of Treatment Date Type Action Status Referral Ordered: Zaid Maddox -[facility]opathic & Osteopathic Physicians : Plastic Surgery (related to Lipoma) ordered Referral Referred To: Zaid Maddox [address] [place] [address], [phone] Ordered: Referrals: Allopathic & Osteopathic Physicians : Plastic Surgery. Zaid Maddox. Evaluate and treat ordered Referral Ordered: LUMBAR XRAY AP AND LAT ONLY ordered Referral Ordered: US EXAM, ABDOM, COMPLETE ordered Appointment Corey Johnson BOOKED History Of Present Illness Encounter Date Complaint History Of Prese nt Illness stomach pain1 Pt c/o diffuse a bdominal pain for several years Pt has frequent nausea, vomiting, Pt denies any constipation or diarrhea pt denies any blood in stool Pt states that he has constant cramp lower abdomen area .Pt denies any weight loss. Pt was heavy alcohol drinker and he has been cutting down for the past two months Pt denies any GERD. back pain1 Pt c/o chronic l ow back pain with some bilateral sciatica for several years pt denies any paresthesia pt denies any loss of bowel or bladder control or any saddle area paresthesia. Pt denies any injury skin1 Pt notices a lar ge soft lesion under right eye for several years. Pt notices it getting bigger and he feels slightly pain and also is affecting his vision on right eye now. 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
--- OUTSIDE RECORDS SUMMARY | 2024-12-24 12:38 | XMS_ITS | Clinical Summary ---
Author Organization [facility] Address [address] [place] [address] Phone Care Team Providers Care Family Physician Name Role Phone Unavailable Primary Care Provider [...] withdrawal seizure with deliriumApril 20 24 at [facility] 10/04/2023 Alcoholic gastritis 01/03/2019 AF (atrial [...] Encounters Date Type Department Care Team Description 12/17/2024 External Device Data [facility] ABSTRACTION Provider, Abstract 12/03/2024 External Device Data [facility] ABSTRACTION Provider, Abstract 11/26/2024 External Device Data [facility] ABSTRACTION Provider, Abstract 10/15/2024 External Device Data [facility] ABSTRACTION Provider, Abstract [...] answer 02/06/2024 Food Insecurity Answer Date Recorded Patient needs follow up regardin 10/12/2024 Transportation Needs Answer Date Record ed Patient needs follow up regardin 10/12/2024 Utility Needs Answer Date Recorded Patient needs follow up regardin 10/12/2024 Sex and Gender Information Value Date Recorded [...] 5:00 AM CDT Height 172.7 cm (5' 8) 02/06/2024 4:28 PM CDT Body Mass Index [...] (1 of 2) 01/04/2018 INFLUENZA VACCINE (#1) 2025 Abdominal Aortic Aneurysm (AAA) Screening Completed 06/11/2015 Insurance [facility] Plans Advance Directives For more information, please contact: [phone] * Full Code (Latest Code Status on [...]
== END 2024-12-24 12:30 | disposition home or self-care (01) ==
PROVIDERS: PCP Emergency Medicine; Visit Provider Emergency Medicine
DX: M47.896 Other spondylosis, lumbar region (principal); M41.86 Other forms of scoliosis, lumbar region
CPT/HCPCS: 72100

== ENCOUNTER 2025-01-22 09:43 | Outpatient (RCR) | payer OTHER, SELFPAY ==
--- NOTE | 2025-01-22 10:53 | OPREHPOC ---
Outpatient Therapy Plan of Care This is a Multidisciplinary Plan of Care that may contain components documented by all disciplines (PT, OT, and ST.) PT Problem 1 PT Problem #1 Knowledge Deficit PT Goal 1 Goal / Goal Update Patient to demonstrate independence with HEP for improved self-reliance of symptom management. Target Visit 5 PT Problem 2 PT Problem #2 Pain PT Goal 1 Goal / Goal Update 1. Patient to decrease subjective reports of pain at its worst to <6/10 for improved ADL tolerance. 2. Patient to decrease subjective reports of pain upon waking to <4/10 for improved ADL tolerance. 3. Patient will decrease their Modified Oswestry score by at least 10 points to indicate significant improvement in functional abilities and quality of life. Target Visit 10 PT Problem 3 PT Problem #3 Impaired Strength PT Goal 1 Goal / Goal Update 1. Patient to demonstrate Adan hip strength >=4+/5 for improved functional stability required for ADLs. 2. Patient to demonstrate core strength >=4+/5 for improved functional stability required for ADLs. Target Visit 10 PT Problem 4 PT Problem #4 Impaired Range of Motion PT Goal 1 Goal / Goal Update Patient to demonstrate ability to achieve neutral spine position with minimal reports of pain to improve functional posture. Target Visit 10
--- NOTE | 2025-01-22 10:53 | PTOPEVAL1 ---
Assessment and note entered by Summer Mercedes PT Evaluation Information Assessment Status Evaluation ICD-10 Condition Codes (PT) Pain in low back M54.50 Subjective Information Primary Complaint: Low Back Pain History of current condition: Pt reports symptoms have been present for years. H/o DDD and spondylosis upon Xray, with and without bilateral sciatica. Pt denies changes in bowel or bladder habits, he is reporting onset of numbness and tingling wrapping to the front of the R hip and groin region. His fianc? is disabled and wheelchair dependent. He is her primary caregiver so he thinks the repeated motion of lifting her in /out of her chair, to the restroom, and car. Sxs made worse with: weather changes, worse in am, morning stiffness, soreness after he stops moving in the pm Sxs improved with: getting moving after a while, topical medication patch, Tramadol CLOF: unable to perform heavy lifting and carrying , more cautious with mobility PLOF: former log truck driver, vin houses, climbing ladders Reported Pain Level Pain Score 5: Self Report Additional Pain Score Comments sharp/burning with forward bending in the morning Assessment PT Clinical Summary Pt is a 55 year old male who presents to physical therapy with a primary complaint of low back pain since. Pt demonstrates Adan hip weakness, core weakness, pain and morning stiffness, decreased general mobility, abnormal posture, impaired sensation and reflex testing and decreased flexibility that limit their ability to perform ADLs. Pt will benefit from skilled physical therapy to address the above listed deficits and return to PLOF. HEP instructed and written handout provided, EX tolerated well with no adverse effects to note post-session. Pt was educated on importance of adherence to HEP. Pt was also educated on anatomy, prognosis, home modalities, and PT POC. Plan of Care Interventions Aquatic Therapy,Electrical Stimulation,Gait Training,Hot Pack/Cold Pack,Manual Therapy,Neuro Re-education,Patient/Caregiver Education, Therapeutic Activities,Therapeutic Exercise,Self- Care/Home Management PT Services Indicated Yes Treatment Frequency and 2x/wk for 10 sessions Duration These treatments will address the objective and functional deficits as defined above. The patient will be advanced safely and appropriately in order for the patient to progress towards his/her prior level of function. Additional exercises will be introduced and as well as a comprehensive home exercise program upon discharge, if needed, ?to ensure carryover of functional gains achieved in the clinic. This treatment plan has been reviewed and agreement upon by the patient.
--- NOTE | 2025-02-13 15:24 | PCPTNOTE ---
Pt canceled due to personal reasons.
--- NOTE | 2025-02-19 10:16 | PTOPDC ---
Assessment and note entered by Summer Mercedes, PT Evaluation Information Assessment Status Discharge - Pt Not Present ICD-10 Condition Codes (PT) Pain in low back M54.50 Subjective Information Pt called the front office to notify he has moves to [place] and will not return for treatment. Assessment PT Clinical Summary Pt called the front office to notify he has moves to [place] and will not return for treatment. Pt is self-discharging from PT this date. Plan of Care PT Services Indicated Yes
== END 2025-02-19 10:43 | disposition home or self-care (01) ==
LOC: ANHPT 09:43
PROVIDERS: PCP Emergency Medicine; Visit Provider Emergency Medicine
DX: M47.896 Other spondylosis, lumbar region (principal)
CPT/HCPCS: 97140; 97162; 97530

== ENCOUNTER 2025-02-05 09:49 | Outpatient (CLI) | payer OTHER, SELFPAY ==
--- OUTSIDE RECORDS SUMMARY | 2025-01-30 09:11 | XMS_ITS | Continuity of Care Document ---
Author Organization [facility] Address [address] [facility] [place] [address] Phone Care Team Providers Care Cutter Machine Name Role Phone Rico Byers MD Unavailable Unavailable Allergies, Adverse Reactions, Alerts Substance Reaction Status Criticality No Known Allergies Active No Inform ation Medications Medication Instructions Dosage Effective Dates (start - stop) Status Comments Neurontin 300 mg capsule take 1 capsule by oral route 3 times every day 300 MG - Active avoid driving or operate machine tramadol 50 mg tablet take 1 tablet by oral route every 6 hours as needed as needed 50 MG - Active PRN for pain, avoid driving or operate machines Breztri Aerosphere 160 mcg-9mcg-4.8mcg/ac tuation HFA aerosol inhaler inhale 2 puff by inhalation route 2 times every day in the morning and evening 2.00 puff - Active albuterol sulfate HFA 90 mcg/actuation aerosol inhaler inhale 1 puff by inhalation route every 4 - 6 hours as needed as needed 1 puff - Active PRN for sob omeprazole 40 mg capsule,delayed release take 1 capsule by oral route every day before a meal 40 MG - Active Procedures Procedure Date OFFICE/OUTPATIENT VISIT, EST OFFICE/OUTPATIENT VISIT, EST OFFICE/OUTPATIENT VISIT, EST Advance Directives Directive Yes / No Effective Date File Name No Information Encounters Encounter Description Practice Location Reason(s) For Visit Diagnoses Date Provider Providers Copied on Encounter OFFICE/OUTPA TIENT VISIT, EST [facility], [address] [facility] [place], [place], [id number], [place] tel:[phone] [facility] pain (chief complaint) abd pain1 (chief complaint) tobacco1 (chief complaint) Essential (primary) hypertensionOther spondylosis, lumbar regionCentrilobular emphysemaLower abdominal pain 5 Zeeshan Gómez. [address] [place], [id number] , [place]. [phone] OFFICE/OUTPA TIENT VISIT, [facility] [place], [address] [place], [place], [id number], [place] tel:[phone] [facility] kCL (chief complaint) MCV (chief complaint) abd pain1 (chief complaint) back pain1 (chief complaint) HypokalemiaOther spondylosis, lumbar regionDisorder of bilirubin metabolism, unspecifiedOther abnormality of red blood cellsAlcohol dependence, uncomplicatedProtei nuriaFolate deficiencyEssential (primary) hypertension 5 Zeeshan Gómez. [address] [place], [id number] , [place]. [phone] OFFICE/OUTPA TIENT VISIT, [facility], [place], [address] [place], [place], [id number], [place] tel:[phone] [facility] skin1 (chief complaint) stomach pain1 (chief complaint) back pain1 (chief complaint) Lower abdominal painOther spondylosis, lumbar regionBenign lipomatous neoplasm of subcutaneous tissue of face 5 Zeeshan Gómez. [address] [facility] [place], [address] , [place]. [phone] Family History Family Member Type Diagnosis Age At Onset Father Problem of murder Brother Problem Alive and well Mother Problem 82 DM, alzheimer Payers Payer name Insurance type Covered green party ID Rowan kurtz(s) [facility] CI [id number] Social History Type Description Quantity Date Captured Comments Alcohol Use Details Caffeine Use Details Unknown Tobacco Use Status Moderate cigarette s moker (10-19 cigs/day) Smoking Status Heavy tobacco smoker Sex Male Vital Signs Date / Time: Height Weight BMI Pulse Rate Blood Pressure Temperature Respiratory Rate Body Surface Area Head Circumference BMI percentile Pulse Ox Inhaled Ox 2:31 PM 68.00 in 131.60 lbs 20.0 1 kg/m eter (2) 73 /min 130/80 mm[Hg] 97.7 F 16 /min Chief Complaint And Reason For Visit From encounter dated '01/30/2025 14:11'. pain (chief complaint). Description: Pt c/o chronic low back pain with some bilateral sciatica for several years pt denies any paresthesia pt denies any loss of bowel or bladder control or any saddlearea paresthesia. Pt denies any injury. Pt has severe DDD on x ray. Pt has been taking neurontin and ultram which does help Pt started PT x one time already. abd pain1 (chief complaint). Description: pt has intermittent diffuse abd pain and nausea, vomiting. Pt denies any sarmad GERD Pt has EGD and colonoscopy next month. pt has been taking omeprazole which is helping as well. Pt has not done ultrasound done tobacco1 (chief complaint). Description: pt smokes Pt c/o frequent sob and wheezing. Pt denies any hemoptysis Plan Of Treatment Date Type Action Status Referral Ordered: CT THORAX W/O DYE ordered Referral Ordered: Physical Therapy (related to Other spondylosis, lumbar region) ordered Referral Referred To: Physical Therapy Ordered: Referrals: Physical Therapy. Evaluate and treat ordered Referral Ordered: Zaid Maddox -[facility] Phys[facility] : Plastic Surgery (related to Lipoma) ordered Referral Ordered: COLONOSCOPY AND BIOPSY ordered Referral Ordered: US EXAM, ABDOM, COMPLETE ordered Referral Referred To: Zaid Maddox [address] [place] [address], [phone] Ordered: Referrals: Allopathic & Osteopathic Physicians : Plastic Surgery. Zaid Maddox. Evaluate and treat ordered Referral Ordered: LUMBAR XRAY AP AND LAT ONLY ordered Appointment Corey Johnson BOOKED History Of Present Illness Encounter Date Complaint History Of Prese nt Illness tobacco1 pt smokes Pt c/o frequent sob and wheezing. Pt denies any hemoptysis abd pain1 pt has intermitt ent diffuse abd pain and nausea, vomiting. Pt denies any sarmad GERD Pt has EGD and colonoscopy next month. pt has been taking omeprazole which is helping as well. Pt has not done ultrasound done pain Pt c/o chronic l ow back pain with some bilateral sciatica for several years pt denies any paresthesia pt denies any loss of bowel or bladder control or any saddle area paresthesia. Pt denies any injury. Pt has severe DDD on x ray. Pt has been taking neurontin and ultram which does help Pt started PT x one time already. abd pain1 Pt c/o diffuse a bdominal pain for several years Pt has frequent nausea, vomiting, Pt denies any constipation or diarrhea pt denies any blood in stool Pt states that he has constant cramp lower abdomen area .Pt denies any weight loss. Pt was heavy alcohol drinker and he has been cutting down for the past two months Pt denies any GERD. Pt had L spine x ray which showed severe DDD. Pt has not done ultrasound done yet. kCL pt has low KCL, which happened in the past Pt denies any abd pain Pt does have some nausea, vomiting since off alcohol 11 days ago MCV Pt has high MCV. Pt is alcoholic. Pt stopped drinking 11 days ago. Pt has low folate and low KCL and high bili. Pt has proteinuria. back pain1 Pt c/o chronic l ow back pain with some bilateral sciatica for several years pt denies any paresthesia pt denies any loss of bowel or bladder control or any saddle area paresthesia. Pt denies any injury. Pt has severe DDD on x ray skin1 Pt notices a lar ge soft lesion under right eye for several years. Pt notices it getting bigger and he feels slightly pain and also is affecting his vision on right eye now. Pt denies any bleeding or scab back pain1 Pt c/o chronic l ow back pain with some bilateral sciatica for several years pt denies any paresthesia pt denies any loss of bowel or bladder control or any saddle area paresthesia. Pt denies any injury stomach pain1 Pt c/o diffuse a bdominal pain for several years Pt has frequent nausea, vomiting, Pt denies any constipation or diarrhea pt denies any blood in stool Pt states that he has constant cramp lower abdomen area .Pt denies any weight loss. Pt was heavy alcohol drinker and he has been cutting down for the past two months Pt denies any GERD. Instructions Date Instruction Additional Infor mation No Information Assessments Type Assessment Date assessment Essential (primary) hypertension assessment Other spondylosis, lumbar region assessment Centrilobular emphysema 025 assessment Lower abdominal pain Mental Status Date Cognitive Assessment Orientation - [place] ed to time, place, person, situation.
--- NOTE | ~2025-02-05 | US_ITS ---
US abdomen complete EXAMINATION: US Abdomen Complete INDICATION: Lower abdominal pain PROCEDURE: Realtime High Resolution abdomen ultrasound. COMPARISON: No prior studies for comparison FINDINGS: Gallbladder within normal limits. No gallstones, pericholecystic fluid, gallbladder wall thickening or biliary dilatation. Common bile duct measures 3 mm. Liver echotexture is normal. There is focal calcification of the liver of doubtful clinical significance. There are small liver cysts. Pancreas within normal limits. Pancreatic tail is obscured by bowel gas. Spleen is unremarkeable. There are echogenic foci of the right kidney, suspicious for renal stones. No hydronephrosis. There is a left renal cyst measuring up to 2.6 cm. Right kidney measures 9.1 cm. Left kidney measures 9.4 cm. Visualized aspects of the aorta and IVC are within normal limits. Portal vein is patent. No sonographic Salinas's sign indicated by the technologist. IMPRESSION: 1: Liver and left renal cysts. 2: Multiple small echogenic foci in the right kidney, suspicious for nonobstructing renal stones. Reviewed, dictated and finalized at location O. IMPRESSION: 1: Liver and left renal cysts. 2: Multiple small echogenic foci in the right kidney, suspicious for nonobstru cting renal stones.
--- OUTSIDE RECORDS SUMMARY | 2025-02-05 10:13 | XMS_ITS | Clinical Summary ---
Author Organization 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
--- OUTSIDE RECORDS SUMMARY | 2025-02-05 10:13 | XMS_ITS | Patient Health Record ---
Author Organization [facility] Address [address] [place] [address] Care Team Providers Care Branch Coordinator Name Role Phone Allan Armenta Primary Care Provider [phone] Nabil Matos Unavailable [phone] Zara Hassan Unavailable [phone] Allergies No Known Allergies Reason For Referral [...] phone, visiting friends or family, going to orthodox or club meetings) More than 5 times a week How stressed are you? Stress is when someone feels tense, nervous, anxious, or can\t sleep at night because their mind is troubled Somewhat In the past year have you sp ent more than 2 nights in a row in a [facility]cfp, [facility]ci, senior living center, or juvenile correctional facility? No Do you feel physically and e motionally safe where you currently live? Yes In the past year, have you b een afraid of your partner or ex-partner? No Are you a refugee? No What country are you from? [facility] PRAPARE Score: 0 Tobacco Control (Standard) Question Answer Notes Tobacco use: Current smoker How often do you smoke cigarettes? Every day How many cigarettes a day do you smoke? 11-20 Problems Problem Type SNOMED Code ICD Code Onset Dates Problem Status W/U Status Risk Notes Problem Hypokalemia (95604206) Hypokalemia (E87.6) Active confirmed Problem Tobacco user (142596653) Nicotine dependence, unspecified, uncomplicated (F17.200) Active confirmed Problem Hypertension (64592117) Hypertension (I10) Active confirmed Problem Hematuria (15219218) Hematuria (R31.9) Active confirmed Problem Alcohol use disorder (8616309607) Alcohol use disorder (F10.99) Active confirmed Problem Insomnia (842569816) Insomnia, unspecified type (G47.00) Active confirmed Problem Carpal tunnel syndrome of left wrist (382652411383218 ) Carpal tunnel syndrome of left wrist (G56.02) Active confirmed Vital Signs Heart Rate 78 /min 03/28/2024 Respiratory Rate 14 /min 03/28/2024 Oximetry 98 % 03/28/2024 Blood pressure diastolic 84 mm Hg 03/28/2024 Height 68 in 03/28/2024 Blood pressure systolic 164 mm Hg 03/28/2024 Weight 128.5 lbs 03/28/2024 BMI 19.54 kg/m2 03/28/2024 Encounters Encounter Location Date Provider Diagnosis [facility] [address] [place] [address] 03/01/2024 Allan Armenta Hypertension I10 ; Alcohol use disorder F10.99 and Hypokalemia E87.[address] [place] [address] 03/28/2024 Nabil Matos Hypertension I10 ; Insomnia, unspecified type G47.00 and Nicotine dependence, unspecified, uncomplicated F17.[address] [place] [address] 02/26/2024 Allan Armenta [address] [place] [address] 03/04/2024 Allan Armenta [address] [place] [address] 03/06/2024 Allan Armenta [facility] [address] [facility] [place] [address] 03/26/2024 Zara Hassan [address] [place] [address] 04/09/2024 Nabil Matos [address] [place] [address] 04/17/2024 Nabil Matos Insomnia, unspecifie d type G47.[address] [place] [address] 04/25/2024 Allan Armenta Hypertension I10 [facility] [address] [place] [address] 02/15/2024 Allan Armenta Hypokalemia E87.6 [facility] [address] [place] [address] 03/04/2024 Allan Armenta [facility] [place] [address] 04/01/2024 Nabil Matos Assessments Encounter Date Diagnosis (ICD Code) Assessment Notes Treatment Notes Treatment Clinical Notes Section Notes 03/01/2024 Hypertension (ICD-10 - I10) 03/01/2024 Alcohol use disorder (ICD-10 - F10.99) 04/25/2024 Hypertension (ICD-10 - I10) 04/17/2024 Insomnia, unspecified type (ICD-10 - G47.00) 03/28/2024 Hypertension (ICD-10 - I10) Increase medication as prescribed, f/u in 1 month, monitor BP readings at home. 03/28/2024 Insomnia, unspecified type (ICD-10 - G47.00) No help from past use of melatonin or trazodone. Hx of alcohol abuse, would avoid ambien, will try doxepin, reassess at next f/u. 02/15/2024 Hypokalemia (ICD-10 - E87.6) 03/01/2024 Hypokalemia (ICD-10 - E87.6) 03/28/2024 Nicotine dependence, unspecified, uncomplicated (ICD-10 - F17.200) Plan Of Treatment No Information Insurance Providers Payer Name Payer Address Payer Phone Subscriber Number Group Number Insured Name Patient Relationship to Insured Coverage Start Date Coverage End Date MEDICAID [address] [place] [address] [id number] Corey Johnson Self - patient is the insured [address] [place] [address] Att Claims Department [address] [place] [address] [phone] Corey Johnson Self - patient is the insured 4 Medical (General) History Medical History History ICD Code alcohol use disorder Hospitalization History Reason Date(Month/Year) [facility] 2023 [facility] 2023
--- OUTSIDE RECORDS SUMMARY | 2025-02-05 10:13 | XMS_ITS | Encounter Summary ---
Author Organization [facility] Address [address] [place] [address] Care Team Providers Care Industrial Training Specialist Name Role Phone Unavailable Primary Care Provider Unavailabl e Encounter Details Date Type Department Care Team (Late st Contact Info) Description 02/04/2025 External Device Data [facility] ABSTRACTION Provider, Abstract NO ADDRESS ON FILE Social History Tobacco Use Types Packs/Day Years Used Date Smoking Tobacco: Every Day Cigarettes 1 20 Smokeless Tobacco: Never Alcohol Use Standard Drinks/Week Comments Yes 0 [...] on file Sexual Orientation Not on file documented as of this encounter Plan of Treatment Not on file documented as of this encounter Visit Diagnoses Not on filedocumented in this encounter
--- OUTSIDE RECORDS SUMMARY | 2025-02-05 10:13 | XMS_ITS | Clinical Summary ---
Author Organization [facility] Address [address] [place] [address] Phone Care Team Providers Care Cross Enterprise Integrator Name Role Phone Unavailable Primary Care Provider [...] Encounters Date Type Department Care Team Description 02/04/2025 External Device Data [facility] ABSTRACTION Provider, Abstract 01/28/2025 External Device Data [facility] ABSTRACTION Provider, Abstract 01/15/2025 External Device Data [facility] ABSTRACTION Provider, Abstract 12/25/2024 External Device Data [facility] ABSTRACTION Provider, Abstract 12/24/2024 External Device Data [facility] ABSTRACTION Provider, Abstract 12/17/2024 External Device Data [facility] ABSTRACTION Provider, [...] Aortic Aneurysm (AAA) Screening Completed 06/11/2015 Insurance RX [employer] (INTERNAL) [facility] [employer] MEDICA[employer] Advance Directives For more information, please contact: [phone] * Full Code (Latest Code Status on [...]
--- OUTSIDE RECORDS SUMMARY | 2025-02-05 10:13 | XMS_ITS | Clinical Summary ---
Author Organization [employer] [facility] Address [address] [place] [address] Care Team Providers Care Technology Administrator Name Role Phone Unavailable Primary Care Provider Unavailabl e Source Comments [facility],non-owned Affiliates and Associated Physician Practices is amultiple site organization consisting of ambulatory clinics and hospital sitesin [place], [place], [place] and [place]. This disclosure is being madepursuant to the Care Everywhere program and may not contain all information available regarding this patient. Last updated 18.[facility] Allergies No known active allergies Medications * Be aware that medications may not be up to date on this document. Alwaysverify current medications with the patient. methocarbamol (Robaxin) 500 MG tablet Take 1 (one) tablet by mouth every 6 hours as needed for Muscle Spasms 20 tablet 01/31/2022 Active naproxen (Naprosyn) 500 MG tablet Take 1 (one) tablet by mouth 2 times daily as needed for Pain 14 tablet 01/31/2022 Active diazePAM (Valium) 10 MG tablet Take 1 (one) tablet by mouth every 12 hours Take one at bedtime today Take one in the morning tomorrow 2 tablet 07/08/2024 Active Active Problems Problem Noted Date Diagnosed Date Suicidal ideation 07/05/2024 Alcohol intake above recommended sensible limits 07/05/2024 Acute alcoholic intoxication with complication 0 07/05/2024 History of alcohol withdrawal syndrome Nicotine addiction 10/22/2014 Seizure 12/14/2009 Immunizations Immunization Administration Dates Next Due TDAP (7yrs+) 07/14/2024(Deferred: Discontinue d by physician),07/14/2024 Family History Medical History Relation Name Comments Alzheimer's Disease Mother Diabetes Mother Relation Name Status Comments Mother Social History Tobacco Use Types Packs/Day Years Used Date Smoking Tobacco: Every Day Cigarettes 0.8 20 Smokeless Tobacco: Never Tobacco Cessation:Ready to Q uit: Not Asked; Counseling Given: Not Answered Alcohol Use Standard Drinks/Week Comments Yes 0 (1 standard drink = 0.6 oz pur e alcohol) AUDIT-C Answer Date Recorded Q1: How often do you have a drink containing alcohol? 4 or more times a week 07/05/2024 Q2: How many drinks containi ng alcohol do you have on a typical day when you are drinking? Patient declined Q3: How often do you have si x or more drinks on one occasion? Weekly 07/05/2024 Overall Financial Resource Strain (CARDIA) Answe r Date Recorded How hard is it for you to pa y for the very basics like food, housing, medical care, and heating? Somewhat hard 07/08/2024 PHQ-2 Answer Date Recorded PHQ2 TOTAL SCORE 1 01/31/2022 [facility] - Occupational Stress Questionnaire Answer Date Recorded Do you feel stress - tense, restless, nervous, or anxious, or unable to sleep at night because your mind is troubled all the time - these days? Very much 07/08/2024 Hunger Vital Sign Answer Date Recorded Within the past 12 months, y ou worried that your food would run out before you got the money to buy more. Never true 07/08/19 25 Within the past 12 months, t he food you bought just didn't last and you didn't have money to get more. Never true 07/08/2024 PRAPARE - Transportation Answer Date Re corded In the past 12 months, has l ack of transportation kept you from medical appointments or from getting medications? No 06/13 In the past 12 months, has l ack of transportation kept you from meetings, work, or from getting things needed for daily living? No 07/08/2024 Housing Stability Vital Sign Answer Jakub e Recorded In the last 12 months, was t here a time when you were not able to pay the mortgage or rent on time? Yes 07/08/2024 In the past 12 months, how m any times have you moved where you were living? 2 07/08/2024 At any time in the past 12 m [facility], were you homeless or living in a care home (including now)? 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 Not on file Not on file Not on file Last Filed Vital Signs Vital Sign Reading Time Taken Comments Blood Pressure 139/96 07/14/2024 4:00 AM LEARNING PROGRAM MANAGER Pulse 96 07/14/2024 4:00 AM LEARNING PROGRAM MANAGER Temperature 36.6 C (97.9 F) 07/14/2024 1:57 AM LEARNING PROGRAM MANAGER Respiratory Rate 18 07/14/2024 4:00 AM LEARNING PROGRAM MANAGER Oxygen Saturation 97% 07/14/2024 4:00 AM LEARNING PROGRAM MANAGER Inhaled Oxygen Concentration - - Weight 59.9 kg (132 lb) 07/05/2024 11:52 PM LEARNING PROGRAM MANAGER Height 172.7 cm (5' 8) 07/05/2024 11:52 PM LEARNING PROGRAM MANAGER Body Mass Index 20.07 07/05/2024 11:52 PM LEARNING PROGRAM MANAGER Plan of Treatment Health Maintenance Due Date Last Done Comments COLOGUARD (AGES 45-75) - COLON CA SCREENING 1968 COLON MONITORING 1968 COLONOSCOPY - COLON CA SCREENING 1968 CT COLONOGRAPHY - COLON CA SCREENING 1968 Colorectal Cancer Screening 1968 FIT - COLON CA SCREENING 1968 FLEX SIG - COLON CA SCREENING 1968 HIV SCREENING 01/04/1983 HEPATITIS B VACCINE (1 of 3 - 19+ 3-dose series) 01/04/1987 PNEUMOCOCCAL VACCINE 50+ (1 of 2 - PCV) 01/04/1987 ZOSTER VACCINE (1 of 2) 01/04/2018 COVID-19 VACCINE (1 - 2023- season) 2024 DEPRESSION SCREENING 06/12/2024 01/31/2022 INFLUENZA VACCINE (#1) 2025 05/10/2022 LIPID TESTING 02/07/2029 02/08/2024, 01/11, 02/06/2024, Additional history exists DTAP/TDAP/TD VACCINES (2 - Td or Tdap) 07/14/2034 07/14/2024 HEPATITIS C SCREENING Completed 01/03/2019 HIB VACCINE Aged Out No longer eligi ble based on patient's age to complete this topic HPV VACCINE Aged Out No longer eligi ble based on patient's age to complete this topic MENINGOCOCCAL (Group B) VACCINE SHARED DECISION-MAKING Aged Out No longer eligible based on patient's age to complete this topic MENINGOCOCCAL GROUPS A/C/Y/W VACCINE Aged Out No longer eligible based on patient's age to complete this topic Goals Goal Patient Goal Type Associated Problems Recent Progress Patient-Stated? Author Quit smoking / using tobacco Lifestyle No Jaida Grimm MA Procedures Procedure Name Priority Date/Time Associated Diagnosis Comments LIPID PROFILE Routine 10/22/2014 10:40 AM CDT Hematuria from Last 3 Months or Most Recently Relevant to Health Maintenance Results * LIPID PROFILE (10/22/2014 10:40 AM CDT) Cholesterol 165 100 - 199 mg/dL [facility] ACCOUNT BILL Triglycerides 139 0 - 149 mg/dL [facility] ACCOUNT BILL HDL Cholesterol 44 >39 mg/dL [facility] ACCOUNT BILL Comment: According to ATP-III Guidelines, HDL-C >59 mg/dL is considered a negative risk factor for CHD. VLDL Calculated 28 5 - 40 mg/dL [facility] ACCOUNT BILL LDL Calculated 93 0 - 99 mg/dL [facility] ACCOUNT BILL Comment NOT NEEDED [facility] ACCOUNT BILL Comment:Ancillary determined the test is not needed Blood specimen (specimen) BLOOD SPECIMEN / Unknown 10/22/2014 10:40 AM CDT 10/22/2014 1:49 PM CDT Narrative Resulting Agency Comment [facility] [address] [facility] [phone] us Sophia Bartholomew MD LAB - CHEMISTRY ORDERABLES Fi nal Result [facility] ACCOUNT BILL [address] [place] [address] from Last 3 Months or Most Recently Relevant to Health Maintenance Insurance [place]ID - [place] [facility] SELF PAY NO INSURANCE Member Subscriber Plan / Payer (Ef fective for All Dates) Name:Corey Conti Member ID:Not on file Relation to Subscriber:Not on file Name:COREY CONTI Subscriber ID:Not on file (Home) Address: [address] [place] [address] Payer ID:Not on file Group ID:Not on file Type:Self Pay Address: [place], [place] * Guarantor: COREY CONTI Account Hawk Relation to Patient Date of Phone Billing Address Personal/Family [address] [place] [address] [facility] SELF PAY NO INSURANCE Member Subscriber Plan / Payer (Ef fective for All Dates) Name:Corey Conti Member ID:Not on file Relation to Subscriber:Not on file Name:COREY CONTI Subscriber ID:Not on file Address: [address] [place] [place] [place] [phone] Payer ID:Not on file Group ID:Not on file Type:Self Pay Address: [place], [place] * Guarantor: COREY CONTI Account Type Relation to Patient Date of Phone Billing Address Personal/Family [address] [place] [phone] [facility] Member Subscriber Plan / Payer (Ef fective for All Dates) Name:Corey Conti Relation to Subscriber:Self Name:Corey Conti Payer ID:[id number] (NAIC) Group ID:Not on file Type:Medicaid Managed Care Address: [place] [phone] SELF PAY NO INSURANCE Member Subscriber Plan / Payer (Ef fective for All Dates) Name:Corey Conti Member ID:Not on file Relation to Subscriber:Not on file Name:COREY CONTI Subscriber ID:Not on file Address: [address] [facility] [place] [phone] Payer ID:Not on file Group ID:Not on file Type:Self Pay Address: [place], [place] * Guarantor: COREY CONTI Account Type Relation to Patient Date of Phone Billing Address Personal/Family [address] [facility] [phone] [facility] SELF PAY NO INSURANCE Member Subscriber Plan / Payer (Ef fective for All Dates) Name:Corey Conti Member ID:Not on file Relation to Subscriber:Not on file Name:COREY CONTI Subscriber ID:Not on file Address: [address] [place] [address] Payer ID:Not on file Group ID:Not on file Type:Self Pay Address: [place], [place] [employer] MEDICAID - [place] Advance Directives * Full Code (Latest Code Status on File) Date Activated Date Inactivated Comments 07/05/2024 8:22 AM 07/08/2024 3:48 PM
== END 2025-02-05 09:50 | disposition home or self-care (01) ==
PROVIDERS: PCP Emergency Medicine; Visit Provider Emergency Medicine
DX: R10.30 Lower abdominal pain, unspecified (principal); N28.1 Cyst of kidney, acquired; K76.89 Other specified diseases of liver
CPT/HCPCS: 76700